=== PATIENT | female | born 1945 | race Two or more races ===

== ENCOUNTER 2020-02-18 08:06 | Outpatient (REF) | payer MEDICARE, OTHER, SELFPAY ==
[2020-02-18 08:53] LABS: Alanine Aminotransferase 15 U/L (0-31); Albumin Level 4.3 g/dL (3.5-5.0); Alkaline Phosphatase 90 U/L (39-117); Aspartate Amino Transferase 21 U/L (5-31); Bilirubin Direct 0.3 mg/dL (0.0-0.5); Bilirubin Total 0.8 mg/dL (0.0-1.0); Cholesterol 134 mg/dL; HDL Cholesterol 63 mg/dL; LDL Cholesterol Calculated 61 mg/dl; Triglycerides 52 mg/dL
== END 2020-02-18 08:07 | disposition home or self-care (01) ==
LOC: HO.LAB 08:06
PROVIDERS: PCP Internal Medicine; Visit Provider Internal Medicine
DX: E78.00 Pure hypercholesterolemia, unspecified (principal)
CPT/HCPCS: 80061; 80076

== ENCOUNTER 2020-02-29 13:58 | Outpatient (REF) | payer MEDICARE, SELFPAY | END 2020-02-29 13:59 | disposition home or self-care (01) | LOC: HO.LAB 13:58 | PROVIDERS: Visit Provider Internal Medicine | DX: Z20.828 Contact with and (suspected) exposure to other viral communicable diseases (principal) | CPT/HCPCS: 87635 ==

== ENCOUNTER 2020-03-14 11:37 | Outpatient (REF) | payer MEDICARE, SELFPAY ==
--- NOTE | 2020-03-14 11:42 | XR_ITS ---
EXAMINATION: XR CHEST CLINICAL INFORMATION: Cough. COMPARISON: None TECHNIQUE: 2 views of the chest were obtained. FINDINGS: The lungs are expanded with increased markings in both lungs suspicious for pneumonitis or interstitial edema the findings are greater on the right side. The heart size and pulmonary vascularity is normal. There is mild spondylosis dorsal spine. No lytic process.. XR/XR chest 2V IMPRESSION: Diffuse increase interstitial markings in both lungs suspicious for pneumonitis or interstitial edema.
== END 2020-03-14 11:38 | disposition home or self-care (01) ==
LOC: HO.XRAY 11:37
PROVIDERS: PCP Internal Medicine; Visit Provider Internal Medicine
DX: R05 Cough (principal)
CPT/HCPCS: 71046

== ENCOUNTER 2020-03-27 08:06 | Outpatient (REF) | payer MEDICARE, SELFPAY ==
[2020-03-27 08:30] LABS: MANUAL DIFF FLAG NO
[2020-03-27 08:34] LABS: Basophils Percent Auto 0.4 % (0-2); Eosinophils Absolute Auto 0.1 X10*3/uL (0.0-0.4); Eosinophils Percent Auto 1.8 % (0-4); Hematocrit 37.1 % (37-47); Hemoglobin 12.2 g/dl (12.0-16.0); Imm Gran Abs Auto 0.01 X10*3/uL (0.00-0.03); Imm Gran Pct Auto 0.2 % (0.0-0.4); Lymphocytes Absolute Auto 1.8 X10*3/uL (1.2-4.9); Lymphocytes Percent Auto 39.5 % (20-40); Mean Corpuscular HGB Conc 32.9 g/dl (31.0-35.0); Mean Corpuscular Hemoglobin 29.8 pg (27.0-33.0); Mean Corpuscular Volume 90.7 fL (80-98); Mean Platelet Volume 10.9 fL (9.4-12.3); Monocytes Absolute Auto 0.4 X10*3/uL (0.1-1.2); Neutrophils Absolute Auto 2.3 X10*3/uL (2.0-8.3); Neutrophils Percent Auto 50.1 % (45-73); Platelet Count 172 X10*3/uL (160-400); Red Blood Count 4.09 X10*6/uL (4.20-5.50); Red Cell Distribution Width 12.9 % (11.0-16.0); White Blood Count 4.5 X10*3/uL (4.8-10.8)
[2020-03-27 08:58] LABS: Alanine Aminotransferase 20 U/L (0-31); Albumin Level 4.1 g/dL (3.5-5.0); Alkaline Phosphatase 91 U/L (39-117); Anion Gap 11 (12-20); Aspartate Amino Transferase 23 U/L (5-31); Bilirubin Total 0.4 mg/dL (0.0-1.0); Blood Urea Nitrogen 17 mg/dL (9-16); Calcium 9.3 mg/dL (8.4-10.2); Carbon Dioxide 31 mmol/L (22-29); Chloride 104 mmol/L (96-108); Estimated Glomerular Filt Rate > 60; Glucose Random 111 mg/dL (60-115); Potassium 4.7 mmol/l (3.3-5.1); Sodium 141 mmol/L (135-145); Total Protein 7.3 g/dL (6.5-8.0)
[2020-03-27 09:01] LABS: B Type Natriuretic Peptide 34 pg/mL (<100)
== END 2020-03-27 08:07 | disposition home or self-care (01) ==
LOC: HO.LAB 08:06
PROVIDERS: PCP Internal Medicine; Visit Provider Internal Medicine
DX: I50.9 Heart failure, unspecified (principal)
CPT/HCPCS: 36415; 80053; 83880; 85025

== ENCOUNTER 2020-04-17 12:53 | Outpatient (REF) | payer MEDICARE, SELFPAY ==
--- NOTE | 2020-04-17 | MM_ITS ---
EXAMINATION: BONE DENSITOMETRY CLINICAL INDICATION: Other specified disorders of bone density and structure. COMPARISON: Previous BD dated 06/25/2016 and baseline BD dated 05/23/2012. TECHNIQUE: Using a [employer] DXA System (software version: 13.1) manufactured by [employer], dual-energy x-ray absorptiometry was performed of the lumbar spine and left hip. The images are of good technical quality. Summary results are attached. FINDINGS: AP SPINE L1-L4: Current: BMD 1.192 g/cm2, Z-score 1.6, T-score 0.1, normal, 9.3% increase from previous, 0.1% increase from baseline (<5% change is not significant). Prior: BMD 1.091 g/cm2. Baseline: BMD 1.191 g/cm2. LEFT FEMUR, NECK: Current: BMD 0.977 g/cm2, Z-score 1.2, T-score -0.4, normal. Prior: BMD 0.976 g/cm2. Baseline: BMD 1.008 g/cm2. LEFT FEMUR, TOTAL: Current: BMD 1.064 g/cm2, Z-score 1.9, T-score 0.5, normal, 3.4% increase from previous, 0.1% increase from baseline (<5% change is not significant). Prior: BMD 1.029 g/cm2. Baseline: BMD 1.063 g/cm2. IDENTIFIED RISK FACTORS: Early menopause, secondary osteoporosis. HISTORY OF FRACTURE: None listed. MEDICATIONS: None listed. MM/XR DEXA axial skeleton IMPRESSION: 1. DIAGNOSIS: Normal bone density based on the lowest T-score value of -0.4 in the femoral neck applying World Health Organization criteria. 2. 10-YEAR FRACTURE RISK PREDICTION, FRAX: Major osteoporotic fracture (clinical spine, forearm, hip or shoulder) 4.6%. Hip fracture 0.4%. 3. Treatment Recommendations: NOF guidelines recommend consideration for treatment in postmenopausal women and men age 50 and older presenting with the following: -A hip or vertebral (clinical or morphometric) fracture. -T-score less than or equal to -2.5 at the femoral neck or spine after appropriate evaluation to exclude secondary causes. -Low bone mass at the hip or spine and a 10-year fracture probability by FRAX of greater than or equal to 3% for hip fracture or greater than or equal to 20% for major osteoporotic fracture based on the [place] adapted WHO algorithm. 4. Other Recommendations: All treatment decisions require clinical judgment and consideration of individual patient factors, including patient preferences, comorbidities, previous drug use, risk factors not captured in the FRAX model (e.g. frailty, falls, vitamin D deficiency, increased bone turnover, interval significant decline in bone density) and possible under or overestimation of fracture risk by FRAX. FUTURE SCAN RECOMMENDATION: People with diagnosed cases of osteoporosis or at high risk for fracture should have regular bone mineral density tests. For patients eligible for Medicare, routine testing is allowed once every 2 years. The testing frequency can be increased to one year for patients who have rapidly progressing disease, those who are receiving or discontinuing medical therapy to restore bone mass, or have additional risk factors.
--- NOTE | 2020-04-17 | MM_ITS ---
EXAMINATION: MM SCREENING DIGITAL BREAST TOMOSYNTHESIS, RIGHT CLINICAL INFORMATION: Screening. Asymptomatic. Status post left mastectomy. COMPARISON: Mammography: April 16, 2019 and studies dating back to May 19, 2011 TECHNIQUE: Digital breast tomosynthesis is performed in both the craniocaudal and mediolateral oblique views along with computer-aided detection (CAD). Synthesized 2D images are generated from the tomosynthesis. FINDINGS: There are scattered areas of fibroglandular density (ACR BI-RADS breast composition Category b). There are no significant masses, abnormal calcifications, or other abnormalities. MM/MM tomosynthesis screening RT IMPRESSION: There are no significant changes from prior study. Status post left mastectomy. ASSESSMENT: BI-RADS 1: Negative RECOMMENDATION: Routine annual mammography screening. This patient's information was entered into a reminder system with a target due date for their next mammogram.
== END 2020-04-17 12:54 | disposition home or self-care (01) ==
LOC: HO.MAMMO 12:53
PROVIDERS: PCP Internal Medicine; Visit Provider Internal Medicine Medical Oncology
DX: M85.89 Other specified disorders of bone density and structure, multiple sites (principal); Z12.31 Encounter for screening mammogram for malignant neoplasm of breast
CPT/HCPCS: 77067; 77080

== ENCOUNTER → 2020-04-25 10:54 | Outpatient (REF) | payer MEDICARE, SELFPAY ==
--- NOTE | 2020-04-25 11:16 | CA_ITS ---
Transthoracic Echocardiogram Patient (Last, First, Middle): Elza Ryan E Gender: Female Date of : 1945 Age: 74 Procedure Date: 04/25/2020 Procedure Type: Transthoracic Echocardiogram Location: OP Height: 165.1 cm Weight: 75.3 kg BSA: 1.83 m2 Heart Rate: bpm BP: 130 / 80 mmHg Background Investigator: ANA Referring MD: Kathrin Lopez MD Symptoms: I50.9 - Heart failure, unspecified Study Quality: Technically Difficult Conclusions: - Normal left ventricular size, thickness, systolic function, and wall motion. The visually estimated ejection fraction is between 55-60%. - E/E prime ratio is >15, consistent with elevated filling pressures. - Normal right ventricular cavity size and systolic function. - There is mild dilatation of the ascending aorta. Findings Procedure Information Contrast agent, definity, is being given per protocol without apparent complications. Left Ventricle Normal left ventricular size, thickness, systolic function, and wall motion. The visually estimated ejection fraction is between 55-60%. Abnormal diastolic function is noted. Spectral Doppler is indicative of a pseudonormal filling pattern. E/E prime ratio is >15, consistent with elevated filling pressures. Right Ventricle Normal right ventricular cavity size and systolic function. Atria Both atria are normal in size. Aortic Valve There is a normal trileaflet aortic valve. There is mild calcification of the aortic valve. There is no aortic valve stenosis. There is no aortic valve regurgitation. Mitral Valve Normal mitral valve structure and function. There is no mitral valve regurgitation. There is no mitral valve stenosis. Pulmonic Valve Normal pulmonic valve structure and function. There is trace pulmonic valve regurgitation. Tricuspid Valve Normal tricuspid valve structure and function. There is trace tricuspid valve regurgitation. Normal right atrial pressure. There is no evidence of pulmonary hypertension. Great Vessels There is mild dilatation of the ascending aorta. The visualized portions of the pulmonary artery and branches are normal. Venous The inferior vena cava is normal in size and collapses greater than 50% with inspiration. Pericardium/Pleural There is no evidence of pericardial effusion. Prior Study Comparison Changes noted compared to prior study dated: 05/20/2016. Elevated filling pressures. Mild dilation of ascending aorta. Measurements 2D Linear Measurements IVSd: 0.85 0.6-0.9/0.6-1.0 cm LVIDd: 4.84 3.9-5.3/4.2-5.9 cm LVIDd Index: 2.64 2.4-3.2/2.2-3.1 cm/m2 LVIDs: 2.97 2.0-3.6 cm LVPWd: 0.83 0.7-1.1 cm Ao Root: 2.90 2.1-3.5 cm LA Diam: 3.10 2.7-3.8/3.0-4.0 cm LAIDs Index: 1.69 1.5-2.3 cm/m2 LV Mass: 169.28 67-162/88-224 g LV Mass Index: 92.50 43-95/49-115 g/m2 LVOT Diam: 1.90 3.0+(-)1.3 cm Mitral Valve MV Pk E: 0.79 MV PK A: 0.68 MV Decel Time: 354.00 E/A: 1.20 E'Lateral: 3.70 E'Medial: 4.57 E/E' Med: 17.30 E/E' Lat: 21.40 PHT: 104.00 MVA PHT: 2.12 Decel Ada: 2.24 Aortic Valve AoV Pk Adonay: 1.53 AoV Mn Adonay: 1.00 AoV VTI: 0.32 AoV Pk Grad: 9.00 Aov Mn Grad: 5.00 CALEB Cont.VTI: 2.47 LVOT LVOT Pk Adonay: 1.57 LVOT Mn Adonay: 0.97 LVOT VTI: 0.28 LVOT Pk Grad: 10.00 LVOT Mn Grad: 5.00 LVOT Diam: 1.90 LVOT Area: 2.84 Diastolic Function MV Pk E: 0.79 MV Pk A: 0.68 E/A: 1.20 E'Medial: 4.57 E/E' Med: 17.30 E' Laterial: 3.70 E/E' Lat: 21.40 Tricuspid Valve TR Pk Adonay: 2.82 TR Pk Grad: 32.00 RA Press: 3.00 RVSP: 35.00 Great Vessels Aorta Ao Root-2D: 2.90 2.0-3.7 cm Ao Asc: 3.60 2.1-3.4 cm Ao Arch: 3.20 Updated in Other Vendor System with Status of Final rTisten Arana MD electronically signed on 04/27/2020 1:30:41 PM with status of Final
== END ==
LOC: HO.CARD 10:54
PROVIDERS: PCP Internal Medicine; Visit Provider Internal Medicine
DX: I50.9 Heart failure, unspecified (principal)
CPT/HCPCS: 93306; Q9957

== ENCOUNTER 2021-04-06 09:35 | Outpatient (REF) | payer MEDICARE, SELFPAY ==
[2021-04-06 10:33] LABS: Cholesterol 146 mg/dL; HDL Cholesterol 58 mg/dL; LDL Cholesterol Calculated 76 mg/dl; Triglycerides 62 mg/dL
[2021-04-06 10:41] LABS: B Type Natriuretic Peptide 123 pg/mL (<100)
[2021-04-06 10:56] LABS: Ferritin 42 ng/mL (10-250); Free T4 (Free Thyroxine) 0.85 ng/dL (0.71-1.85); Thyroid Stimulating Hormone 1.73 uIU/mL (0.32-4.0); Vitamin D 25-OH Total 20.7 ng/mL (>30)
[2021-04-06 11:05] LABS: Folate 14.4 ng/mL (> or = 4.0); Vitamin B12 307 pg/mL (200-900)
[2021-04-06 12:30] LABS: Creatinine Urine 209.97 mg/dL; Microalbum/Creatinine Ratio Ur 20.4 ug/mg cr
== END 2021-04-06 09:36 | disposition home or self-care (01) ==
LOC: HO.LAB 09:35
PROVIDERS: PCP Internal Medicine; Visit Provider Internal Medicine
DX: E11.65 Type 2 diabetes mellitus with hyperglycemia (principal); E78.00 Pure hypercholesterolemia, unspecified
CPT/HCPCS: 36415; 80061; 82043; 82306; 82607; 82728; 82746; 83880; 84439; 84443

== ENCOUNTER 2021-04-20 09:54 | Outpatient (REF) | payer MEDICARE, SELFPAY ==
--- NOTE | ~2021-04-20 | MM_ITS ---
EXAMINATION: MM SCREENING DIGITAL BREAST TOMOSYNTHESIS, RIGHT CLINICAL INFORMATION: Left mastectomy, 1998. Due for yearly. COMPARISON: Mammography: 04/17/2020, 04/16/2019, 03/27/2018 TECHNIQUE: Digital breast tomosynthesis is performed in both the craniocaudal and mediolateral oblique views along with computer-aided detection (CAD). Synthesized 2D images are generated from the tomosynthesis. Additional CC view is provided. FINDINGS: There are scattered areas of fibroglandular density (ACR BI-RADS breast composition Category b). There are no significant masses, abnormal calcifications, or other abnormalities. No developing density. Parenchymal pattern is similar to prior studies. The axilla and skin contours are unremarkable. MM/MM tomosynthesis screening RT IMPRESSION: No mammographic evidence of malignancy. ASSESSMENT: BI-RADS 1: Negative RECOMMENDATION: Routine annual mammography screening. This patient's information was entered into a reminder system with a target due date for their next mammogram.
== END 2021-04-20 09:55 | disposition home or self-care (01) ==
LOC: HO.MAMMO 09:54
PROVIDERS: PCP Internal Medicine; Visit Provider Internal Medicine Medical Oncology
DX: Z12.31 Encounter for screening mammogram for malignant neoplasm of breast (principal)
CPT/HCPCS: 77063; 77067

== ENCOUNTER 2021-06-08 08:14 | Outpatient (REF) | payer MEDICARE, SELFPAY ==
[2021-06-08 08:39] LABS: MANUAL DIFF FLAG NO
[2021-06-08 08:51] LABS: Basophils Percent Auto 0.5 % (0-2); Eosinophils Absolute Auto 0.1 X10*3/uL (0.0-0.4); Eosinophils Percent Auto 1.1 % (0-4); Hematocrit 40.1 % (37.0-47.0); Hemoglobin 13.6 g/dl (12.0-16.0); Imm Gran Abs Auto 0.01 X10*3/uL (0.00-0.03); Imm Gran Pct Auto 0.2 % (0.0-0.4); Lymphocytes Absolute Auto 1.5 X10*3/uL (1.2-4.9); Lymphocytes Percent Auto 33.3 % (20-40); Mean Corpuscular HGB Conc 33.9 g/dl (31.0-35.0); Mean Corpuscular Hemoglobin 30.7 pg (27.0-33.0); Mean Corpuscular Volume 90.5 fL (80.0-98.0); Mean Platelet Volume 10.6 fL (9.4-12.3); Monocytes Absolute Auto 0.3 X10*3/uL (0.1-1.2); Monocytes Percent Auto 7.7 % (2-11); Neutrophils Absolute Auto 2.5 x10*3/uL (2.0-8.3); Neutrophils Percent Auto 57.2 % (45-73); Platelet Count 198 X10*3/uL (160-400); Red Blood Count 4.43 X10*6/uL (4.20-5.50); Red Cell Distribution Width 12.7 % (11.0-16.0); White Blood Count 4.4 X10*3/uL (4.8-10.8)
[2021-06-08 08:59] LABS: Estimated Average Glucose 146 mg/dL; Hemoglobin A1c % 6.7 %
[2021-06-08 09:10] LABS: Alanine Aminotransferase 15 U/L (0-31); Albumin Level 4.4 g/dL (3.5-5.0); Alkaline Phosphatase 97 U/L (39-117); Anion Gap 10 (12-20); Aspartate Amino Transferase 20 U/L (5-31); Bilirubin Total 0.6 mg/dL (0.0-1.0); Blood Urea Nitrogen 20 mg/dL (9-16); Calcium 9.9 mg/dL (8.4-10.2); Carbon Dioxide 31 mmol/L (22-29); Chloride 106 mmol/L (96-108); Estimated Glomerular Filt Rate > 60; Glucose Random 128 mg/dL (60-115); Potassium 4.6 mmol/L (3.3-5.1); Sodium 142 mmol/L (135-145); Total Protein 7.5 g/dL (6.5-8.0)
[2021-06-08 09:31] LABS: Thyroid Stimulating Hormone 1.28 uIU/mL (0.32-4.0)
[2021-06-08 09:59] LABS: Folate 13.4 ng/mL (> or = 4.0); Vitamin B12 309 pg/mL (200-900)
== END 2021-06-08 08:15 | disposition home or self-care (01) ==
LOC: HO.LAB 08:14
PROVIDERS: PCP Internal Medicine; Visit Provider Internal Medicine
DX: E11.65 Type 2 diabetes mellitus with hyperglycemia (principal)
CPT/HCPCS: 36415; 80053; 82607; 82746; 83036; 84443; 85025

== ENCOUNTER 2021-11-28 15:26 | Emergency (ER) | payer MEDICARE, SELFPAY ==
--- NOTE | ~2021-11-28 | CT_ITS ---
EXAMINATION: CT HEAD WITHOUT CONTRAST CLINICAL INFORMATION: Dizziness COMPARISON: Baseline 12/27/2013 TECHNIQUE: Contiguous axial imaging was performed from the skull base to vertex without intravenous administration of contrast. This CT examination was performed using dose optimization techniques as appropriate, variously including the following: *Automated exposure control *Adjustment of mA and/or kV according to patient size (this includes techniques or standardized protocols for targeted exams where dose is matched to indication/reason for exam; i.e. extremities or head) *Use of iterative reconstruction technique DLP: 644 mGy-cm FINDINGS: There is no evidence of acute intracranial hemorrhage or territorial infarction. No abnormal mass effect or midline shift is seen. Hester to white matter differentiation is well preserved. No extra-axial fluid collections are identified. The ventricles are normal in size. There is no abnormal attenuation within the brain parenchyma. The osseous structures and soft tissues are normal. The mastoid air cells and visualized portions of the paranasal sinuses are well aerated. CT/CT head/brain wo con IMPRESSION: No acute intracranial pathology.
--- NOTE | ~2021-11-28 | CT_ITS ---
EXAMINATION: CT ANGIOGRAM OF THE CHEST WITH AND WITHOUT CONTRAST (CT PULMONARY ANGIOGRAM FOR PE) CLINICAL INFORMATION: Reason for Exam hypotensive, Dizzy, elevated d-dimer COMPARISON: CT PE study 06/11/2018 TECHNIQUE: Prior to contrast administration, noncontrast localization images were obtained. Subsequently, multidetector volumetric imaging was performed from the thoracic inlet to below the diaphragms following the administration of 57 mL Omnipaque 350 intravenous contrast. No contrast reaction reported Sagittal, coronal, and MIP oblique sagittal reformatted images were obtained on the CT workstation, uploaded to PACS, and reviewed. This CT examination was performed using dose optimization techniques as appropriate, variously including the following: *Automated exposure control *Adjustment of mA and/or kV according to patient size (this includes techniques or standardized protocols for targeted exams where dose is matched to indication/reason for exam; i.e. extremities or head) *Use of iterative reconstruction technique Total exam dose-length product 298 mGy-cm FINDINGS: QUALITY OF STUDY/CONTRAST BOLUS: Satisfactory. PULMONARY ARTERIES: No central or segmental pulmonary emboli. THORACIC AORTA: No aneurysm or dissection. LUNG: No focal consolidation, worrisome nodules or masses. Calcified granuloma present in the right lower lobe. PLEURA: No pleural effusion or pneumothorax. MEDIASTINUM: Normal heart size. No pericardial effusion. No hilar or mediastinal lymphadenopathy. No evidence of septal bowing or right heart strain. CHEST WALL/AXILLA: No axillary or internal mammary lymphadenopathy. A left breast prosthesis is present. OSSEOUS STRUCTURES: No acute or suspicious osseous abnormality. UPPER ABDOMEN: Status post cholecystectomy No reflux of contrast into the hepatic veins to suggest elevated right heart pressures. CT/CT angio chest PE protocol IMPRESSION: No evidence of pulmonary VTE: negative
[2021-11-28 15:29] VITALS: BP 100/50; PULSE 58; RESP 22; TEMP 37.1; O2SAT 95; BMI 23.8
--- NOTE | 2021-11-28 15:41 | ECG_ITS ---
Test Reason : DIZZINESS Blood Pressure : / mmHG Vent. Rate : 054 BPM Atrial Rate : 054 BPM P-R Int : 156 ms QRS Dur : 088 ms QT Int : 376 ms P-R-T Axes : 061 017 171 degrees QTc Int : 356 ms Sinus bradycardia Cannot rule out Anterior infarct , age undetermined ST & T wave abnormality, consider lateral ischemia Abnormal ECG When compared with ECG of 11-JUN-2018 15:06, No significant change was found Referred By: Generic ED Physician Electronically Signed By:Tristen Arana
[2021-11-28 15:46] LABS: Hematocrit 39.3 % (37.0-47.0); Hemoglobin 13.6 g/dl (12.0-16.0); Mean Corpuscular HGB Conc 34.6 g/dl (31.0-35.0); Mean Corpuscular Hemoglobin 30.2 pg (27.0-33.0); Mean Corpuscular Volume 87.3 fL (80.0-98.0); Mean Platelet Volume 10.1 fL (9.4-12.3); Platelet Count 261 X10*3/uL (160-400); Red Cell Distribution Width 12.3 % (11.0-16.0); White Blood Count 9.2 X10*3/uL (4.8-10.8)
--- NOTE | 2021-11-28 15:57 | ED.GENADULT ---
HPI - General Adult General Chief complaint: Abdominal Pain Stated complaint: abdominal pain Time Seen by Provider: 11/28/21 15:43 Source: patient and family Mode of arrival: EMS History of Present Illness HPI narrative: 76-year-old female with history of diabetes, high blood pressure reports that she returned home and had and a sudden onset of dizziness and blurry vision that has now completely resolved and then she began having lower abdominal/pelvic pain that has also resolved. Patient denies any vomiting, shortness of breath, ear ringing, nausea/vomiting/diarrhea. Patient denies any recent fever, chills or urinary pain/burning/frequency. Related Data Home Medications Medication Instructions Recorded Confirmed aspirin 81 mg tablet,delayed 81 mg PO DAILY 02/25/20 11/26/21 release (Adult Aspirin Regimen) Previous Rx's Medication Instructions Recorded fluticasone propionate 50 2 spray intranasal DAILY #48 mL 05/19/20 mcg/actuation nasal spray,suspension metformin 1,000 mg tablet 1,000 mg PO BID #180 tabs 02/06/21 amlodipine 10 mg tablet 10 mg PO DAILY 90 days #90 tabs 08/12/21 rosuvastatin 20 mg tablet 20 mg PO DAILY #90 tabs 11/11/21 lisinopril 40 mg tablet 40 mg PO DAILY 90 days #90 tabs 11/17/21 cyclobenzaprine 5 mg tablet 5 mg PO TID PRN muscle spasm #30 11/18/21 tabs sennosides 8.6 mg-docusate sodium 2 tab-cap PO BEDTIME 30 days #60 11/26/21 50 mg tablet (Senna-S) tabs Allergies Allergy/AdvReac Type Severity Reaction Status Date / Time hydrochlorothiazide Allergy Unknown unknown Verified 11/26/21 10:38 Review of Systems Review of Systems: Pertinent positives and negatives as stated HPI 10 point review of systems is otherwise negative. FOR[facility]LY [facility] Past Medical History Source: nursing notes reviewed Medical History Coronary artery disease GERD (gastroesophageal reflux disease) History of breast cancer Hypercholesterolemia Hypertension Subdural hematoma Type 2 diabetes mellitus with hyperglycemia Surgical History History of cholecystectomy History of left mastectomy History of tonsillectomy Family History Family History Father Past heart attack Hypertension Mother Throat cancer Social History Social History Housing: Apartment Alcohol intake: former Patient Tobacco Use Status: Never used Tobacco e-Cigarette/Vaping Use: Never Used Second Hand Smoke Exposure: No Advance Directives: Yes Advance Directives Information Provided: No Advance Directives on File: No Current occupational status: retired Cognitive needs: No Hearing needs: No Vision needs: Yes Physical Exam ED Vital Signs: Vital Signs - 24 hr 11/28/21 15:29 11/28/21 16:09 Temperature 98.8 F Pulse Rate 58 Respiratory Rate 22 H Blood Pressure 100/50 L 102/45 L Pulse Oximetry 95 Oxygen Delivery Method Room Air BMI result Body Mass Index 23.8 VITAL SIGNS: Reviewed. GENERAL: Well developed, well nourished, in no acute distress. HEAD: Normocephalic/atraumatic EYES: PERRLA, EOMI EARS: Ext canals without abnormality NOSE: Nares patent bilateral OROPHARYNX: no oral lesions noted, posterior pharynx clear NECK: Supple, no adenopathy LUNGS: Normal breath sounds. No adventitious sounds or accessory muscle use. SpO2<95> CARDIOVASCULAR: Regular rate and rhythm without noted murmurs, no JVD or lower extremity edema. ABDOMEN: Soft, non-tender, non-distended with bowel sounds. SKIN: Inspection of the skin reveals no rashes NEUROLOGIC: Alert and oriented x 4. Strength and sensation to light touch were grossly intact x 4, no facial asymmetry, no pronator drift, cranial nerves 2-12 grossly intact, heel to farah is intact. Course Course Course Narrative: 76-year-old female with history and clinical presentation suggestive of possible dehydration in combination with possible hyper versus hypo glycemia. Will rule out cardiopulmonary etiologies and low clinical suspicion for neurologic etiology. Review of all investigations demonstrates serial troponins that are detectable, but again no prior to compare and patient has no complaints of chest pain. Blood pressure is noted to be soft comparison to priors. Signed out to Dr. Henriquez - f/u BMP - CT angio PE protocol Medical Decision Making Lab Data Result diagrams: 11/28/21 15:39 11/28/21 15:39 Labs: Lab Results 07/23/22 07/23/22 07/23/22 Range/Units 15:39 15:39 15:39 WBC 9.2 (4.8-10.8) X10*3/uL RBC 4.50 (4.20-5.50) X10*6/uL Hgb 13.6 (12.0-16.0) g/dl Hct 39.3 (37.0-47.0) % MCV 87.3 (80.0-98.0) fL MCH 30.2 (27.0-33.0) pg MCHC 34.6 (31.0-35.0) g/dl RDW 12.3 (11.0-16.0) % Plt Count 261 D (160-400) X10*3/uL MPV 10.1 (9.4-12.3) fL Absolute Nucleated RBC 0.000 (0.0-0.012) X10*3/uL Nucleated RBC % (auto) 0.0 (0.0-0.2) /100WBC D-Dimer High Sensitivty NG/ML Sodium 140 (135-145) mmol/L Potassium 4.2 (3.3-5.1) mmol/L Chloride 103 (96-108) mmol/L Carbon Dioxide 22 (22-29) mmol/L Anion Gap 19 (12-20) BUN 23 H (9-16) mg/dL Creatinine 1.58 H (0.5-1.4) mg/dL Estim Creat Clear Calc 29.2 Estimated GFR 32 POC Glucose (60-115) mg/dL Random Glucose 140 H (60-115) mg/dL Calcium 10.2 (8.4-10.2) mg/dL Troponin I High Sens 33.4 H (<3.5-17.0) ng/L B-Natriuretic Peptide 45 (<100) pg/mL Lipase 38 (8-78) U/L Urine Color Urine Appearance Urine pH (5.0-8.0) Ur Specific [place] (1.005-1.025) Urine Protein (NEG-TRACE) MG/DL Urine Glucose (UA) (NEG) MG/DL Urine Ketones (NEG) MG/DL Urine Blood (NEG) Urine Nitrite (NEG) Ur Leukocyte Esterase (NEG) Urine RBC (0) /HPF Urine WBC (0-4) /HPF Ur Squamous Epith Cells /LPF Urine Bacteria /LPF Hyaline Casts /LPF Urine Mucus /LPF 11/28/21 11/28/21 11/28/21 Range/Units 16:32 17:03 17:44 WBC (4.8-10.8) X10*3/uL RBC (4.20-5.50) X10*6/uL Hgb (12.0-16.0) g/dl Hct (37.0-47.0) % MCV (80.0-98.0) fL MCH (27.0-33.0) pg MCHC (31.0-35.0) g/dl RDW (11.0-16.0) % Plt Count (160-400) X10*3/uL MPV (9.4-12.3) fL Absolute Nucleated RBC (0.0-0.012) X10*3/uL Nucleated RBC % (auto) (0.0-0.2) /100WBC D-Dimer High Sensitivty NG/ML Sodium (135-145) mmol/L Potassium (3.3-5.1) mmol/L Chloride (96-108) mmol/L Carbon Dioxide (22-29) mmol/L Anion Gap (12-20) BUN (9-16) mg/dL Creatinine (0.5-1.4) mg/dL Estim Creat Clear Calc Estimated GFR POC Glucose 133 H (60-115) mg/dL Random Glucose (60-115) mg/dL Calcium (8.4-10.2) mg/dL Troponin I High Sens 30.0 H (<3.5-17.0) ng/L B-Natriuretic Peptide (<100) pg/mL Lipase (8-78) U/L Urine Color YELLOW Urine Appearance CLEAR Urine pH 5.5 (5.0-8.0) Ur Specific [place] 1.015 (1.005-1.025) Urine Protein TRACE (NEG-TRACE) MG/DL Urine Glucose (UA) NEG (NEG) MG/DL Urine Ketones NEG (NEG) MG/DL Urine Blood NEG (NEG) Urine Nitrite NEG (NEG) Ur Leukocyte Esterase 1+ H (NEG) Urine RBC 1-4 (0) /HPF Urine WBC 1-4 (0-4) /HPF Ur Squamous Epith Cells 2+ /LPF Urine Bacteria NONE /LPF Hyaline Casts 15-29 /LPF Urine Mucus 4+ /LPF // Range/Units 18:23 WBC (4.8-10.8) X10*3/uL RBC (4.20-5.50) X10*6/uL Hgb (12.0-16.0) g/dl Hct (37.0-47.0) % MCV (80.0-98.0) fL MCH (27.0-33.0) pg MCHC (31.0-35.0) g/dl RDW (11.0-16.0) % Plt Count (160-400) X10*3/uL MPV (9.4-12.3) fL Absolute Nucleated RBC (0.0-0.012) X10*3/uL Nucleated RBC % (auto) (0.0-0.2) /100WBC D-Dimer High Sensitivty 1663 NG/ML Sodium (135-145) mmol/L Potassium (3.3-5.1) mmol/L Chloride (96-108) mmol/L Carbon Dioxide (22-29) mmol/L Anion Gap (12-20) BUN (9-16) mg/dL Creatinine (0.5-1.4) mg/dL Estim Creat Clear Calc Estimated GFR POC Glucose (60-115) mg/dL Random Glucose (60-115) mg/dL Calcium (8.4-10.2) mg/dL Troponin I High Sens (<3.5-17.0) ng/L B-Natriuretic Peptide (<100) pg/mL Lipase (8-78) U/L Urine Color Urine Appearance Urine pH (5.0-8.0) Ur Specific [place] (1.005-1.025) Urine Protein (NEG-TRACE) MG/DL Urine Glucose (UA) (NEG) MG/DL Urine Ketones (NEG) MG/DL Urine Blood (NEG) Urine Nitrite (NEG) Ur Leukocyte Esterase (NEG) Urine RBC (0) /HPF Urine WBC (0-4) /HPF Ur Squamous Epith Cells /LPF Urine Bacteria /LPF Hyaline Casts /LPF Urine Mucus /LPF ECG Data Attestation: I personally reviewed and interpreted this ECG as follows: Prior ECG tracings: not available for review Interpretation: Sinus bradycardia, HR -54, no STEMI, PA/QRS/QTC is within normal limits. Discharge Plan Discharge Clinical Impression: Dizziness, Abdominal pain, D-dimer, elevated Patient Disposition: Still a Patient Prescriptions: No Action fluticasone propionate 50 mcg/actuation spray,suspension 2 spray intranasal DAILY Qty: 48 3RF rosuvastatin 20 mg tablet 20 mg PO DAILY Qty: 90 2RF lisinopril 40 mg tablet 40 mg PO DAILY 90 Days Qty: 90 3RF cyclobenzaprine 5 mg tablet 5 mg PO TID PRN (Reason: muscle spasm) Qty: 30 0RF metformin 1,000 mg tablet 1,000 mg PO BID Qty: 180 3RF aspirin [Adult Aspirin Regimen] 81 mg tablet,delayed release (DR/EC) 81 mg PO DAILY amlodipine 10 mg tablet 10 mg PO DAILY 90 Days Qty: 90 3RF sennosides-docusate sodium [Senna-S] 8.6-50 mg tablet 2 tab-cap PO BEDTIME 30 Days Qty: 60 3RF
[2021-11-28 16:09] VITALS: BP 102/45
[2021-11-28 16:09] LABS: Anion Gap 19 (12-20); Blood Urea Nitrogen 23 mg/dL (9-16); Calcium 10.2 mg/dL (8.4-10.2); Carbon Dioxide 22 mmol/L (22-29); Chloride 103 mmol/L (96-108); Creatinine Clr Calc Pharmacy 29.2; Estimated Glomerular Filt Rate 32; Glucose Random 140 mg/dL (60-115); Lipase 38 U/L (8-78); Potassium 4.2 mmol/L (3.3-5.1); Sodium 140 mmol/L (135-145)
[2021-11-28 16:32] LABS: B Type Natriuretic Peptide 45 pg/mL (<100); Troponin-I High Sensitivity 33.4 ng/L (<3.5-17.0)
[2021-11-28] MEDS: 0.9 % Sodium Chloride 1,000 ML 999 ML IV (16:35)
[2021-11-28 16:37] LABS: Glucose, Whole Blood 133 mg/dL (60-115)
[2021-11-28 17:54] LABS: Appearance Urine CLEAR; Color Urine YELLOW; Glucose Urine UA NEG (NEG); Leukocyte Esterase Urine 1+ (NEG); Nitrite Urine NEG (NEG); PH 5.5 (5.0-8.0); Specific Gravity - Urine 1.015 (1.005-1.025); UACC Culture Trigger YES; Urine Blood NEG (NEG); Urine Ketones NEG (NEG); Urine Protein TRACE MG/DL (NEG-TRACE)
[2021-11-28 18:35] LABS: Mucus Urine 4+ /LPF; Squamous Epithelial Cell Urine 2+ /LPF
[2021-11-28 18:40] LABS: D Dimer High Sensitivity 1663 NG/ML
[2021-11-28 19:11] LABS: COVID-19 Test Negative (Negative)
[2021-11-28 20:00] LABS: Anion Gap 15 (12-20); Blood Urea Nitrogen 24 mg/dL (9-16); Calcium 9.7 mg/dL (8.4-10.2); Carbon Dioxide 24 mmol/L (22-29); Chloride 107 mmol/L (96-108); Creatinine Clr Calc Pharmacy 38.2; Estimated Glomerular Filt Rate 43; Glucose Random 165 mg/dL (60-115); Sodium 142 mmol/L (135-145)
[2021-11-28] MEDS: iohexoL 350 MG/ML 100 ML INFUS..BTL IV (20:54)
== END 2021-11-28 23:15 | disposition home or self-care (01) ==
PROVIDERS: Student in an Organized Health Care Education/Training Program; Emergency Provider Emergency Medicine; PCP Internal Medicine
DX: R10.30 Lower abdominal pain, unspecified (principal); R42 Dizziness and giddiness; R79.1 Abnormal coagulation profile; R00.1 Bradycardia, unspecified; Z20.822 Contact with and (suspected) exposure to COVID-19; I11.0 Hypertensive heart disease with heart failure; I50.9 Heart failure, unspecified; E11.9 Type 2 diabetes mellitus without complications; E78.00 Pure hypercholesterolemia, unspecified; I25.10 Atherosclerotic heart disease of native coronary artery without angina pectoris; Z79.84 Long term (current) use of oral hypoglycemic drugs; Z79.899 Other long term (current) drug therapy; Z79.02 Long term (current) use of antithrombotics/antiplatelets; Z79.82 Long term (current) use of aspirin
CPT/HCPCS: 36415; 70450; 71275; 80048; 81001; 82947; 83690; 83880; 84484; 85027; 85379; 87086; 87635; 93005; 96360; 99284; Q9967

== ENCOUNTER 2021-12-01 08:51 | Outpatient (REF) | payer MEDICARE, SELFPAY ==
--- NOTE | ~2021-12-01 | XR_ITS ---
EXAMINATION: XR HIP, LEFT CLINICAL INFORMATION: Left hip pain. No injury COMPARISON: None TECHNIQUE: Two views of the left hip. AP pelvis one view FINDINGS: AP pelvis: There is normal symmetry of SI joints and bilateral hip joints. The pubic symphysis appears unremarkable. The soft tissues are normal. Left hip: There is no visible acute fracture, dislocation or subluxation seen. No bony erosive changes. The soft tissues are normal. XR/XR hip LT w [id number] IMPRESSION: Unremarkable AP pelvis and left hip exam.
== END 2021-12-01 08:52 | disposition home or self-care (01) ==
LOC: HO.XRAY 08:51
PROVIDERS: PCP Internal Medicine; Visit Provider Internal Medicine
DX: M25.552 Pain in left hip (principal); K59.00 Constipation, unspecified
CPT/HCPCS: 73502

== ENCOUNTER → 2022-01-14 11:00 | Outpatient (BNV) | payer MEDICARE, SELFPAY | PROVIDERS: PCP Internal Medicine; Visit Provider Internal Medicine Medical Oncology | DX: Z85.3 Personal history of malignant neoplasm of breast (principal) | CPT/HCPCS: 99213 ==

== ENCOUNTER 2022-03-18 08:09 | Outpatient (REF) | payer MEDICARE, SELFPAY ==
[2022-03-18 08:49] LABS: Basophils Percent Auto 0.4 % (0-2); Eosinophils Absolute Auto 0.1 X10*3/uL (0.0-0.4); Eosinophils Percent Auto 1.1 % (0-4); Hematocrit 39.9 % (37.0-47.0); Hemoglobin 13.5 g/dl (12.0-16.0); Imm Gran Abs Auto 0.02 X10*3/uL (0.00-0.03); Imm Gran Pct Auto 0.4 % (0.0-0.4); Lymphocytes Absolute Auto 1.3 X10*3/uL (1.2-4.9); Lymphocytes Percent Auto 24.1 % (20-40); MANUAL DIFF FLAG NO; Mean Corpuscular HGB Conc 33.8 g/dl (31.0-35.0); Mean Corpuscular Hemoglobin 29.8 pg (27.0-33.0); Mean Corpuscular Volume 88.1 fL (80.0-98.0); Mean Platelet Volume 10.3 fL (9.4-12.3); Monocytes Absolute Auto 0.3 X10*3/uL (0.1-1.2); Monocytes Percent Auto 5.5 % (2-11); Neutrophils Absolute Auto 3.6 x10*3/uL (2.0-8.3); Neutrophils Percent Auto 68.5 % (45-73); Platelet Count 242 X10*3/uL (160-400); Red Blood Count 4.53 X10*6/uL (4.20-5.50); Red Cell Distribution Width 12.8 % (11.0-16.0); White Blood Count 5.3 X10*3/uL (4.8-10.8)
[2022-03-18 09:12] LABS: Creatinine Urine 187.16 mg/dL; Microalbum/Creatinine Ratio Ur 10.6 ug/mg cr
[2022-03-18 09:33] LABS: Estimated Average Glucose 148 mg/dL; Hemoglobin A1c % 6.8 %
[2022-03-18 10:09] LABS: Folate 12.7 ng/mL (> or = 4.0); Vitamin B12 324 pg/mL (200-900)
[2022-03-18 10:16] LABS: Thyroid Stimulating Hormone 1.64 uIU/mL (0.32-4.0)
[2022-03-18 10:32] LABS: Alanine Aminotransferase 12 U/L (0-31); Albumin Level 4.3 g/dL (3.5-5.0); Alkaline Phosphatase 100 U/L (39-117); Anion Gap 15 (12-20); Aspartate Amino Transferase 19 U/L (5-31); Bilirubin Total 0.5 mg/dL (0.0-1.0); Blood Urea Nitrogen 14 mg/dL (9-16); Calcium 9.6 mg/dL (8.4-10.2); Carbon Dioxide 26 mmol/L (22-29); Chloride 106 mmol/L (96-108); Cholesterol 148 mg/dL; Estimated Glomerular Filt Rate > 60; Glucose Random 121 mg/dL (60-115); HDL Cholesterol 64 mg/dL; LDL Cholesterol Calculated 74 mg/dl; Potassium 4.6 mmol/L (3.3-5.1); Sodium 142 mmol/L (135-145); Total Protein 7.5 g/dL (6.5-8.0); Triglycerides 52 mg/dL; Vitamin D 25-OH Total 19.8 ng/mL (>30)
[2022-03-18 11:11] LABS: Free T4 (Free Thyroxine) 1.04 ng/dL (0.71-1.85)
== END 2022-03-18 08:10 | disposition home or self-care (01) ==
LOC: HO.LAB 08:09
PROVIDERS: PCP Internal Medicine; Visit Provider Internal Medicine
DX: E11.65 Type 2 diabetes mellitus with hyperglycemia (principal); E78.00 Pure hypercholesterolemia, unspecified; K21.9 Gastro-esophageal reflux disease without esophagitis
CPT/HCPCS: 36415; 80053; 80061; 82043; 82306; 82607; 82746; 83036; 84439; 84443; 85025

== ENCOUNTER 2022-04-29 09:51 | Outpatient (REF) | payer MEDICARE, SELFPAY ==
--- NOTE | ~2022-04-29 | MM_ITS ---
EXAMINATION: BONE DENSITOMETRY CLINICAL INDICATION: Osteopenia. COMPARISON: Previous BD dated 04/17/2020 and baseline BD dated 05/23/2012. TECHNIQUE: Using a [employer] DXA System (software version: 13.1) manufactured by [employer], dual-energy x-ray absorptiometry was performed of the lumbar spine and left hip. The images are of good technical quality. Summary results are attached. FINDINGS: AP SPINE L1-L4: Current: BMD 1.122 g/cm2, Z-score 0.8, T-score -0.5, normal, 5.9% decrease from previous, 5.8% decrease from baseline (<5% change is not significant). Prior: BMD 1.192 g/cm2. Baseline: BMD 1.191 g/cm2. LEFT FEMUR, NECK: Current: BMD 0.968 g/cm2, Z-score 1.1, T-score -0.5, normal. Prior: BMD 0.977 g/cm2. Baseline: BMD 1.008 g/cm2. LEFT FEMUR, TOTAL: Current: BMD 1.036 g/cm2, Z-score 1.6, T-score 0.2, normal, 2.6% decrease from previous, 2.5% decrease from baseline (<5% change is not significant). Prior: BMD 1.064 g/cm2. Baseline: BMD 1.063 g/cm2. IDENTIFIED RISK FACTORS: Menopause. HISTORY OF FRACTURE: None listed. MEDICATIONS: None listed. MM/XR DEXA axial skeleton IMPRESSION: 1. DIAGNOSIS: Normal bone density based on the lowest T-score value of -0.5 in the lumbar spine and femur neck applying World Health Organization criteria. 2. 10-YEAR FRACTURE RISK PREDICTION, FRAX: According to the guidelines, FRAX calculation should only be performed on patients in the osteopenia bone density category. Therefore, FRAX was not performed on this patient. 3. Treatment Recommendations: NOF guidelines recommend consideration for treatment in postmenopausal women and men age 50 and older presenting with the following: -A hip or vertebral (clinical or morphometric) fracture. -T-score less than or equal to -2.5 at the femoral neck or spine after appropriate evaluation to exclude secondary causes. -Low bone mass at the hip or spine and a 10-year fracture probability by FRAX of greater than or equal to 3% for hip fracture or greater than or equal to 20% for major osteoporotic fracture based on the [place] adapted WHO algorithm. 4. Other Recommendations: All treatment decisions require clinical judgment and consideration of individual patient factors, including patient preferences, comorbidities, previous drug use, risk factors not captured in the FRAX model (e.g. frailty, falls, vitamin D deficiency, increased bone turnover, interval significant decline in bone density) and possible under or overestimation of fracture risk by FRAX. FUTURE SCAN RECOMMENDATION: People with diagnosed cases of osteoporosis or at high risk for fracture should have regular bone mineral density tests. For patients eligible for Medicare, routine testing is allowed once every 2 years. The testing frequency can be increased to one year for patients who have rapidly progressing disease, those who are receiving or discontinuing medical therapy to restore bone mass, or have additional risk factors.
== END 2022-04-29 09:52 | disposition home or self-care (01) ==
LOC: HO.MAMMO 09:51
PROVIDERS: PCP Internal Medicine; Visit Provider Internal Medicine Medical Oncology
DX: Z12.31 Encounter for screening mammogram for malignant neoplasm of breast (principal); Z13.820 Encounter for screening for osteoporosis; Z78.0 Asymptomatic menopausal state; Z85.3 Personal history of malignant neoplasm of breast
CPT/HCPCS: 77063; 77067; 77080

== ENCOUNTER 2022-05-31 09:56 | Outpatient (REF) | payer MEDICARE, SELFPAY ==
--- NOTE | ~2022-05-31 | FL_ITS ---
EXAMINATION: FL UPPER GI AIR-CONTRAST STUDY AND BARIUM SWALLOW CLINICAL INFORMATION: Dysphagia COMPARISON: None TECHNIQUE: Routine upper GI air-contrast study was performed in upright and lying position. Thick barium and barium-coated chicken was administered in the upright lateral view. FINDINGS: On oral administration of thick barium, barium-coated chicken and effervescent granules in the upright lateral view, there is normal propagation bolus from the oral cavity through the pharynx, esophagus and into the stomach. No obstruction or narrowing seen. There is normal mastication of solid food. On oral administration of thick barium and effervescent granules in upright view, the esophagus is widely patent. No laryngeal penetration or aspiration seen. On placing patient supine and prone-lying, the course, caliber and peristalsis of the stomach, duodenal bulb and the sweep is normal. The mucosal pattern of the stomach and the duodenum is normal. There are surgical dre in the right upper quadrant, likely cholecystectomy. FL/FL upper GI w Ba Swallow IMPRESSION: Unremarkable barium swallow. Unremarkable upper GI air-contrast study.
== END 2022-05-31 09:57 | disposition home or self-care (01) ==
LOC: HO.XRAY 09:56
PROVIDERS: PCP Internal Medicine; Visit Provider Internal Medicine
DX: R13.10 Dysphagia, unspecified (principal)
CPT/HCPCS: 74240

== ENCOUNTER 2022-12-22 10:33 | Outpatient (AMB) | payer MEDICARE, SELFPAY ==
[2022-12-22 10:45] VITALS: BP 168/92; PULSE 82; O2SAT 98; BMI 27.4
--- NOTE | 2022-12-22 10:45 | A.OFFPC_ITS ---
Vital Signs 12/22/22 10:45 Height 5 ft 6 in Weight 170 lb BMI 27.4 BP 168/92 H Blood Pressure Location Lt brachial Pulse 82 Pulse Source Pulse Oximeter Pulse Oximetry (%) 98 Oxygen Delivery Method Room Air Intake Visit Reasons: R ear pain Allergies hydrochlorothiazide Allergy (Unknown, Verified 12/22/22 10:46) unknown Medication List - Last Reconciled 12/22/22 by Kathrin Lopez MD amlodipine 10 mg PO DAILY 90 days aspirin (Adult Aspirin Regimen) 81 mg PO DAILY baclofen 10 mg PO BID 7 days blood sugar diagnostic ([employer] Ultra Test strips) As directed check the blood sugar once a day blood-glucose meter As directed check the blood sugar once a day ONE TOUCH ULTRA 2 cholecalciferol (vitamin D3) (Vitamin D3) 125 mcg PO DAILY cyanocobalamin (vitamin B-12) 1,000 mcg PO DAILY fluticasone propionate 50 mcg/actuation 2 sprays intranasal DAILY hydralazine 10 mg PO BID 90 days lancets ([employer] UltraSoft 2 Lancet) As directed once a day lisinopril 40 mg PO DAILY 90 days metformin 1,000 mg PO BID ymqxuock-dginxovos-MT 3.5-10,000-1 mg/mL-unit/mL-% 4 drps otic (ear) right Q8H 10 days omeprazole 20 mg PO DAILY rosuvastatin 20 mg PO DAILY sennosides-docusate sodium 8.6-50 mg (Senna-S) 2 tab-caps (2 x 8.6-50 mg) PO BEDTIME 30 days tramadol 50 mg PO BID 5 days Tobacco use date assessed: 08/02/22 Fall risk assessment: No Falls in past year Last assessed Fall Risk: 12/22/22 Dental Screening Dental Screen Date: 12/22/22 Did you have a dental visit in the last 12 months?: Yes Did you have a dental problem in the last 6 months where you did not have access to dental care?: No Was dental information given to patient?: Patient has dentist [facility] Medical History Coronary artery disease GERD (gastroesophageal reflux disease) History of breast cancer Hypercholesterolemia Hypertension Subdural hematoma Type 2 diabetes mellitus with hyperglycemia Surgical History History of cholecystectomy History of left mastectomy History of tonsillectomy Family History Father Past heart attack Hypertension Mother Throat cancer Social History Household Members: Children Housing: House Are you a primary child day care teacher to a significant other at home: No Do you presently have visiting nurse or other home services: No Alcohol intake: former Patient Tobacco Use Status: Never used Tobacco e-Cigarette/Vaping Use: Never Used Second Hand Smoke Exposure: No service: No Current occupational status: retired Cognitive needs: No Hearing needs: No Vision needs: Yes Questionnaire PHQ-9 Over the last 2 weeks, how often have you been bothered by any of the following problems? 1. Little interest or pleasure in doing things: not at all 2. Feeling down, depressed, or hopeless: not at all 3. Trouble falling or staying asleep, or sleeping too much: not at all 4. Feeling tired or having little energy: not at all 5. Poor appetite or overeating: not at all 6. Feeling bad about yourself - or that you are a failure or have let yourself or your family down: not at all 7. Trouble concentrating on things, such as reading the newspaper or watching television: not at all 8. Moving or speaking so slowly that other people could have noticed. Or the opposite - being so fidgety or restless that you have been moving around a lot more than usual: not at all 9. Thoughts that you would be better off or of hurting yourself in some way: not at all Total score: 0 Depression Screening Interpretation: Negative Source: Developed by Drs. Danie Musa, Janessa Hassan, Miguel Ángel Xavier and colleagues, with an educational jocelyn from [employer]. Thrive Questionnaire Date Thrive assessed: 08/02/22 AUDIT C Alcohol Use Questionnaire (AUDIT-C) 1. How often do you have a drink containing alcohol?: Monthly or less 2. How many drinks containing alcohol do you have on a typical day when you are drinking?: 1 or 2 3. How often do you have six or more drinks on one occasion?: Never Total Score: 1 PAULA-7 AMB Questionnaire PAULA-7 Date PAULA - 7 assessed: 09/22/22 Source: Developed by Drs. Danie Musa, Janessa Hassan, Miguel Ángel Xavier and colleagues, with an educational jocelyn from [employer]. Physical exam (Primary Care) Vital Signs: Last Vital Signs Pulse 82 12/22/22 10:45 BP 168/92 H 12/22/22 10:45 Pulse Ox 98 12/22/22 10:45 Oxygen Delivery Method Room Air 12/22/22 10:45 BMI result Body Mass Index 27.4 Tobacco/Smoking Status: Tobacco use Status Tobacco use date assessed 08/02/22 12/22/22 10:55 Patient Tobacco Use Status Never used Tobacco 12/22/22 10:55 e-Cigarette/Vaping Use Never Used 12/22/22 10:55 PHQ-9: PHQ-9 Score PHQ-9: Total score 0 12/22/22 11:03 Depression Screening Interpretation: Negative Thrive Assessment: Date of Thrive Assessment Date Thrive assessed 08/02/22 12/22/22 10:55 Assessment and Plan Assessment & Plan Medications: New omeprazole 20 mg PO DAILY 30 caps 1RF R10.13 - Epigastric pain evauynco-bpkfzdvia-UO 3.5-10,000-1 mg/mL-unit/mL-% 4 drps otic (ear) right Q8H 10 days 10 mL 0RF H60.90 - Unspecified otitis externa, unspecified ear Coding Level of Care Code Est Pt Level 4 (69451) Diagnoses
--- NOTE | 2022-12-22 10:54 | MHC.PC.OV ---
Vital Signs 12/22/22 10:45 Height 5 ft 6 in Weight 170 lb BMI 27.4 BP 168/92 H Blood Pressure Location Lt brachial Pulse 82 Pulse Source Pulse Oximeter Pulse Oximetry (%) 98 Oxygen Delivery Method Room Air Intake Visit Reasons: R ear pain Allergies hydrochlorothiazide Allergy (Unknown, Verified 12/22/22 10:46) unknown Medication List - Last Reconciled 12/22/22 by Kathrin Lopez MD amlodipine 10 mg PO DAILY 90 days aspirin (Adult Aspirin Regimen) 81 mg PO DAILY baclofen 10 mg PO BID 7 days blood sugar diagnostic ([employer] Ultra Test strips) As directed check the blood sugar once a day blood-glucose meter As directed check the blood sugar once a day ONE TOUCH ULTRA 2 cholecalciferol (vitamin D3) (Vitamin D3) 125 mcg PO DAILY cyanocobalamin (vitamin B-12) 1,000 mcg PO DAILY fluticasone propionate 50 mcg/actuation 2 sprays intranasal DAILY hydralazine 10 mg PO BID 90 days lancets ([employer] UltraSoft 2 Lancet) As directed once a day lisinopril 40 mg PO DAILY 90 days metformin 1,000 mg PO BID qsghrzez-qvbhralvg-HZ 3.5-10,000-1 mg/mL-unit/mL-% 4 drps otic (ear) right Q8H 10 days omeprazole 20 mg PO DAILY rosuvastatin 20 mg PO DAILY sennosides-docusate sodium 8.6-50 mg (Senna-S) 2 tab-caps (2 x 8.6-50 mg) PO BEDTIME 30 days tramadol 50 mg PO BID 5 days Tobacco use date assessed: 08/02/22 Dental Screening Dental Screen Date: 12/22/22 Did you have a dental visit in the last 12 months?: No Did you have a dental problem in the last 6 months where you did not have access to dental care?: No Was dental information given to patient?: No HPI R ear pain HPI Details 77-year-old overweight female with controlled diabetes mellitus history of breast cancer hypertension hypercholesterolemia GERD coronary artery disease last seen in October 2022. Coming in for an acute problem. 2 days ago pain R ear, no congestion. no swim no discharge patient also complains of having epigastric pain no nausea no vomiting no diarrhea no fevers no coughs no colds REPLACED BY [facility] Medical History Coronary artery disease GERD (gastroesophageal reflux disease) History of breast cancer Hypercholesterolemia Hypertension Subdural hematoma Type 2 diabetes mellitus with hyperglycemia Surgical History History of cholecystectomy History of left mastectomy History of tonsillectomy Family History Father Past heart attack Hypertension Mother Throat cancer Social History Household Members: Children Housing: House Are you a primary ocular care aide to a significant other at home: No Do you presently have visiting nurse or other home services: No Alcohol intake: former Patient Tobacco Use Status: Never used Tobacco e-Cigarette/Vaping Use: Never Used Second Hand Smoke Exposure: No service: No Current occupational status: retired Cognitive needs: No Hearing needs: No Vision needs: Yes Questionnaire PHQ-9 Over the last 2 weeks, how often have you been bothered by any of the following problems? 1. Little interest or pleasure in doing things: not at all 2. Feeling down, depressed, or hopeless: not at all 3. Trouble falling or staying asleep, or sleeping too much: not at all 4. Feeling tired or having little energy: not at all 5. Poor appetite or overeating: not at all 6. Feeling bad about yourself - or that you are a failure or have let yourself or your family down: not at all 7. Trouble concentrating on things, such as reading the newspaper or watching television: not at all 8. Moving or speaking so slowly that other people could have noticed. Or the opposite - being so fidgety or restless that you have been moving around a lot more than usual: not at all 9. Thoughts that you would be better off or of hurting yourself in some way: not at all Total score: 0 Depression Screening Interpretation: Negative Source: Developed by Drs. Danie Musa, Janessa Hassan, Miguel Ángel Xavier and colleagues, with an educational jocelyn from [employer]. Thrive Questionnaire Date Thrive assessed: 08/02/22 AUDIT C Alcohol Use Questionnaire (AUDIT-C) 1. How often do you have a drink containing alcohol?: Monthly or less 2. How many drinks containing alcohol do you have on a typical day when you are drinking?: 1 or 2 3. How often do you have six or more drinks on one occasion?: Never Total Score: 1 PAULA-7 AMB Questionnaire PAULA-7 Date PAULA - 7 assessed: 09/22/22 Source: Developed by Drs. Danie Musa, Janessa Hassan, Miguel Ángel Xavier and colleagues, with an educational jocelyn from [employer]. Physical exam (Primary Care) Vital Signs: Last Vital Signs Pulse 82 12/22/22 10:45 BP 168/92 H 12/22/22 10:45 Pulse Ox 98 12/22/22 10:45 Oxygen Delivery Method Room Air 12/22/22 10:45 Care Plan Goal for BP management: Right tragal tenderness, epigastric tenderness with no rebound or guarding BMI result Body Mass Index 27.4 Tobacco/Smoking Status: Tobacco use Status Tobacco use date assessed 08/02/22 12/22/22 10:55 Patient Tobacco Use Status Never used Tobacco 12/22/22 10:55 e-Cigarette/Vaping Use Never Used 12/22/22 10:55 PHQ-9: PHQ-9 Score PHQ-9: Total score 0 12/22/22 10:55 Depression Screening Interpretation: Negative Thrive Assessment: Date of Thrive Assessment Date Thrive assessed 08/02/22 12/22/22 10:55 Const General: alert; No acute distress Eyes Conjunctivae: conjunctivae normal Resp Auscultation: clear to auscultation bilaterally Cardio Rate: regular rate Rhythm: regular rhythm GI Inspection: Yes normal to inspection Extrem General: Yes normal to inspection and No edema Assessment and Plan Assessment & Plan (1) Type 2 diabetes mellitus with hyperglycemia: Code(s): E11.65 - Type 2 diabetes mellitus with hyperglycemia Qualifiers: 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 Hemoglobin A1c goal of less than 7.0 patient is on metformin a 1000 mg twice a day (2) Otitis externa: Code(s): H60.90 - Unspecified otitis externa, unspecified ear Plan: Ear drops sent in (3) Epigastric pain: Code(s): R10.13 - Epigastric pain Plan: Avoid the foods that causes that usually spicy foods, tomato products, juices, coffee, soda and foods that your sensitive to. After eating do not lie down, allow 3-4 hours before in lie down. And keep the head of bed above 30 degrees to avoid the acid from going up. Medications: New omeprazole 20 mg PO DAILY 30 caps 1RF R10.13 - Epigastric pain uvywaevv-fzgxzjxwx-LY 3.5-10,000-1 mg/mL-unit/mL-% 4 drps otic (ear) right Q8H 10 mL 0RF 10 days H60.90 - Unspecified otitis externa, unspecified ear Coding Level of Care Code Est Pt Level 4 (66883) Diagnoses Type 2 diabetes mellitus with hyperglycemia E11.65 Diabetes mellitus fdc insulin use: without fdc use Otitis externa H60.90 Epigastric pain R10.13
== END 2022-12-22 11:08 | disposition home or self-care (01) ==
PROVIDERS: PCP Internal Medicine; Visit Provider Internal Medicine
DX: E11.65 Type 2 diabetes mellitus with hyperglycemia (principal); H60.91 Unspecified otitis externa, right ear; R10.13 Epigastric pain
CPT/HCPCS: 99214

== ENCOUNTER 2023-02-17 10:57 | Outpatient (AMB) | payer MEDICARE, SELFPAY ==
--- NOTE | 2023-02-17 11:18 | A.OFFPC_ITS ---
Vital Signs 02/17/23 11:19 Height 5 ft 6 in Weight 167 lb BMI 27.0 BP 132/76 Blood Pressure Location Lt brachial Position Sitting Pulse 75 Pulse Source Pulse Oximeter Pulse Oximetry (%) 98 Oxygen Delivery Method Room Air Intake Visit Reasons: HTN , CHolesterol , HTN Allergies hydrochlorothiazide Allergy (Unknown, Verified 02/17/23 11:19) unknown Tobacco use date assessed: 08/02/22 Fall risk assessment: No Falls in past year Last assessed Fall Risk: 02/17/23 Dental Screening Dental Screen Date: 02/17/23 Did you have a dental visit in the last 12 months?: No Did you have a dental problem in the last 6 months where you did not have access to dental care?: No Was dental information given to patient?: No HPI HTN , CHolesterol , HTN HPI Details 77-year-old female with controlled diabe po mellitus last seen in December 2022 coming in for follow-up. Patient's colonoscopy is due this year mammogram is due for April and bone density is up-to-date review of the notes in January patient follows up with Hematology Oncology for the history of breast cancer 1017colon test postponed due to sickness.. fall last month on stairs hit knee and ankle and since that time L leg swelling- patient at the last moment complains to me of falling 1 month ago on left knee and since that time has been having swelling of the left leg deny any pain on any of the joints right now but with this prompting for consultation [facility] Medical History Coronary artery disease GERD (gastroesophageal reflux disease) History of breast cancer Hypercholesterolemia Hypertension Subdural hematoma Type 2 diabetes mellitus with hyperglycemia Surgical History History of cholecystectomy History of left mastectomy History of tonsillectomy Family History Father Past heart attack Hypertension Mother Throat cancer Social History Household Members: Children Housing: House Are you a primary weekend caregiver to a significant other at home: No Do you presently have visiting nurse or other home services: No Alcohol intake: former Patient Tobacco Use Status: Never used Tobacco e-Cigarette/Vaping Use: Never Used Second Hand Smoke Exposure: No service: No Current occupational status: retired Cognitive needs: No Hearing needs: No Vision needs: Yes Questionnaire PHQ-9 Over the last 2 weeks, how often have you been bothered by any of the following problems? 1. Little interest or pleasure in doing things: not at all 2. Feeling down, depressed, or hopeless: not at all 3. Trouble falling or staying asleep, or sleeping too much: not at all 4. Feeling tired or having little energy: not at all 5. Poor appetite or overeating: not at all 6. Feeling bad about yourself - or that you are a failure or have let yourself or your family down: not at all 7. Trouble concentrating on things, such as reading the newspaper or watching television: not at all 8. Moving or speaking so slowly that other people could have noticed. Or the opposite - being so fidgety or restless that you have been moving around a lot more than usual: not at all 9. Thoughts that you would be better off or of hurting yourself in some way: not at all Total score: 0 Depression Screening Interpretation: Negative Depression Screening Done: Yes Source: Developed by Drs. Danie Musa, Miguel Ángel Frank and colleagues, with an educational jocelyn from [email or web address]. Thrive Questionnaire Date Thrive assessed: 08/02/22 AUDIT C Alcohol Use Questionnaire (AUDIT-C) 1. How often do you have a drink containing alcohol?: Monthly or less 2. How many drinks containing alcohol do you have on a typical day when you are drinking?: 1 or 2 3. How often do you have six or more drinks on one occasion?: Never Total Score: 1 PAULA-7 AMB Questionnaire PAULA-7 Date PAULA - 7 assessed: 09/22/22 Source: Developed by Drs. Danie Musa, Janessa Hassan, Miguel Ángel Xavier and colleagues, with an educational jocelyn from [email or web address]. Physical exam (Primary Care) Vital Signs: Last Vital Signs Pulse 75 02/17/23 11:19 BP 132/76 02/17/23 11:19 Pulse Ox 98 02/17/23 11:19 Oxygen Delivery Method Room Air 02/17/23 11:19 BMI result Body Mass Index 27.0 Tobacco/Smoking Status: Tobacco use Status Tobacco use date assessed 08/02/22 02/17/23 11:18 Patient Tobacco Use Status Never used Tobacco 02/17/23 11:18 e-Cigarette/Vaping Use Never Used 02/17/23 11:18 PHQ-9: PHQ-9 Score PHQ-9: Total score 0 02/17/23 11:32 Depression Screening Interpretation: Negative Thrive Assessment: Date of Thrive Assessment Date Thrive assessed 08/02/22 02/17/23 11:18 Const General: alert; No acute distress Eyes Conjunctivae: conjunctivae normal Resp Auscultation: clear to auscultation bilaterally Cardio Rate: regular rate Rhythm: regular rhythm GI Inspection: Yes normal to inspection Extrem Other: Noted left leg 2+ edema but the right 1 is norm General: Yes edema Results AMB Hemoglobin A1c AMB Hemoglobin A1c 6.7 % Last Edit by Nancy Marlow CMA on 02/17/23 11 :50 Assessment and Plan Assessment & Plan (1) Type 2 diabetes mellitus with hyperglycemia: Code(s): E11.65 - Type 2 diabetes mellitus with hyperglycemia Qualifiers: Diabetes mellitus salvage determiner insulin use: without salvage determiner use Qualified Code(s): E11.65 - Type 2 diabetes mellitus with hyperglycemia Plan: Decrease the amount of carbohydrate intake, pasta, bread, rice and potatoes are all sugar and that is aside from all the sweet stuff, remember that fruits are good but they are Sweet also. Hemoglobin A1c goal of less than 7.0 patient takes metformin a 1000 mg twice a day (2) History of breast cancer: Comment: 1999 with left mastectomy chemotherapy Dr. Thorpe Code(s): Z85.3 - Personal history of malignant neoplasm of breast Plan: Up-to-date with mammogram April 2022 (3) GERD (gastroesophageal reflux disease): Code(s): K21.9 - Gastro-esophageal reflux disease without esophagitis Qualifiers: Esophagitis presence: without esophagitis Qualified Code(s): K21.9 - Gastro-esophageal reflux disease without esophagitis Plan: Avoid the foods that causes that usually spicy foods, tomato products, juices, coffee, soda and foods that your sensitive to. After eating do not lie down, allow 3-4 hours before in lie down. And keep the head of bed above 30 degrees to avoid the acid from going up. (4) Hypertension: Code(s): I10 - Essential (primary) hypertension Qualifiers: Hypertension type: essential hypertension Qualified Code(s): I10 - Essential (primary) hypertension Plan: Continue with blood pressure medication. Decrease salt intake and exercise continue with lisinopril 40 mg once a day hydralazine 10 mg twice a day and amlodipine 10 mg once a day (5) Hypercholesterolemia: Code(s): E78.00 - Pure hypercholesterolemia, unspecified Plan: Avoid fried foods, chicken skin, eggs, butter margarine, pastries and meat. Be it pork or beef they have a lot of cholesterol continue with rosuvastatin 20 mg once a day LDL goal of less than 70 and triglyceride of less than 150 (6) Coronary artery disease: Code(s): I25.10 - Atherosclerotic heart disease of [place] coronary artery without angina pectoris Qualifiers: Associated angina: without angina Coronary Disease-Associated Artery/Lesion type: [place] artery [place] vs. transplanted heart: [place] heart Qualified Code(s): I25.10 - Atherosclerotic heart disease of [place] coronary artery without angina pectoris Plan: Control the cholesterol, weight, blood pressure, diabetes (7) CHF (congestive heart failure): Comment: Echocardiogram EF 55-60% normal LV Code(s): I50.9 - Heart failure, unspecified Qualifiers: Heart failure chronicity: acute Heart failure type: unspecified Qualified Code(s): I50.9 - Heart failure, unspecified Plan: Weigh daily continue with the blood pressure medication (8) Left leg swelling: Code(s): M79.89 - Other specified soft tissue disorders Plan: On having ultrasound stat to check for DVT. Orders: Orders AMB Hemoglobin A1c Today Z13.9 - Encounter for screening, unspecified Complete Blood Count Auto Diff 3 Months E11. - Type 2 diabetes mellitus with hyperglycemia Free T4 (Free Thyroxine) 3 Months E11. - Type 2 diabetes mellitus with hyperglycemia Vitamin B12 and Folate 3 Months . - Type 2 diabetes mellitus with hyperglycemia Creatinine Urine 3 Months . - Type 2 diabetes mellitus with hyperglycemia Comprehensive Met. Panel 3 Months . - Type 2 diabetes mellitus with hyperglycemia Lipid Panel 3 Months E11. - Type 2 diabetes mellitus with hyperglycemia, E78.00 - Pure hypercholesterolemia, unspecified Vitamin D 25-OH Total 3 Months - Type 2 diabetes mellitus with hyperglycemia Microalbumin, Random (w Creat) 3 Months E11.65 - Type 2 diabetes mellitus with hyperglycemia US venous duplex LE LT Today M79.89 - Other specified soft tissue disorders Referrals Ophthalmology Referral E11.65 - Type 2 diabetes mellitus with hyperglycemia Coding Level of Care Code Est Pt Level 4 (36972) Diagnoses Type 2 diabetes mellitus with hyperglycemia, without long-term current use of insulin E11.65 Diabetes mellitus salvage determiner insulin use: without salvage determiner use History of breast cancer Z85.3 Gastroesophageal reflux disease without esophagitis K21.9 Esophagitis presence: without esophagitis Essential hypertension I10 Hypertension type: essential hypertension Hypercholesterolemia E78.00 Coronary artery disease involving [place] coronary artery of [place] heart without angina pectoris I25.10 Associated angina: without angina Coronary Disease-Associated Artery/Lesion type: [place] artery [place] vs. transplanted heart: [place] heart Acute congestive heart failure, unspecified heart failure type I50.9 Heart failure chronicity: acute Heart failure type: unspecified Left leg swelling M79.89
[2023-02-17 11:19] VITALS: BP 132/76; PULSE 75; O2SAT 98; BMI 27.0
== END 2023-02-17 12:06 | disposition home or self-care (01) ==
PROVIDERS: PCP Internal Medicine; Visit Provider Internal Medicine
DX: E11.65 Type 2 diabetes mellitus with hyperglycemia (principal); I50.9 Heart failure, unspecified; Z85.3 Personal history of malignant neoplasm of breast; K21.9 Gastro-esophageal reflux disease without esophagitis; I10 Essential (primary) hypertension; E78.00 Pure hypercholesterolemia, unspecified; I25.10 Atherosclerotic heart disease of native coronary artery without angina pectoris; M79.89 Other specified soft tissue disorders
CPT/HCPCS: 83036; 99214

== ENCOUNTER 2023-02-17 12:27 | Outpatient (REF) | payer MEDICARE, SELFPAY ==
--- NOTE | ~2023-02-17 | US_ITS ---
EXAMINATION: US VENOUS ULTRASOUND WITH DOPPLER LOWER EXTREMITY, LEFT CLINICAL INFORMATION: Left lower extremity edema. COMPARISON: None available. TECHNIQUE: Ultrasound of the deep veins is performed from the hip to the calf with compression sonography and color and pulse Doppler assessment. Spectral analysis with color-flow imaging is performed. FINDINGS: There is normal venous compression and respiratory variation and augmented flow. The visualized common femoral vein, superficial femoral vein, profunda femoral vein, popliteal vein, and the trifurcation region shows no evidence of deep venous thrombosis. There is no significant popliteal fossa cyst. If the patient's symptoms persist, followup ultrasound in 5 days 7 days might be of value to exclude proximal propagation from a non-visualized calf vein. US/US venous duplex LE IMPRESSION: No DVT demonstrated in the left lower extremity.
== END 2023-02-17 12:28 | disposition home or self-care (01) ==
LOC: HO.US 12:27
PROVIDERS: PCP Internal Medicine; Visit Provider Internal Medicine
DX: R60.0 Localized edema (principal)
CPT/HCPCS: 93971

== ENCOUNTER 2023-05-23 08:56 | Day surgery (SDC) | payer MEDICARE, SELFPAY ==
--- NOTE | 2023-01-28 09:21 | HO.ANESPROP2 ---
HPI - Anesthesia Eval Consult details Narrative: 77yo F for Colonoscopy, Upper Endoscopy with Balloon Dilitation PMFSH Active Problems Active Problems: All Active Problems (Updated 01/17/23 @ 09:07 by Amanda Thorpe MD) Epigastric pain (Acute) Otitis externa (Acute) Strain of latissimus dorsi muscle (Acute) Muscle strain (Acute) Dysphagia (Acute) Dizziness (Acute) Hip pain, left (Acute) Constipation (Acute) Back pain (Acute) CHF (congestive heart failure) (Acute) Upper respiratory tract infection (Acute) Cough (Acute) Type 2 diabetes mellitus with hyperglycemia (Acute) History of breast cancer (Acute) GERD (gastroesophageal reflux disease) (Acute) Hypertension (Acute) Hypercholesterolemia (Acute) Coronary artery disease (Acute) Past Medical History Medical History Coronary artery disease GERD (gastroesophageal reflux disease) History of breast cancer Hypercholesterolemia Hypertension Subdural hematoma Type 2 diabetes mellitus with hyperglycemia Family History Family History Father Past heart attack Hypertension Mother Throat cancer Surgical History Surgical History History of cholecystectomy History of left mastectomy History of tonsillectomy Social History Social History Household Members: Children Housing: House Are you a primary career development specialist to a significant other at home: No Do you presently have visiting nurse or other home services: No Alcohol intake: former Patient Tobacco Use Status: Never used Tobacco e-Cigarette/Vaping Use: Never Used Second Hand Smoke Exposure: No Use of substances other than those prescribed or required for medical reasons: No Have you been hit, kicked, punched, or otherwise hurt by someone within the past year? If so, by whom?: No Do you have thoughts of harming others: None Do you have a plan to hurt others: No Plan Do you have the means to hurt others: No Recently lost weight without trying: No Eating poorly because of decreased appetite: No Patient : No service: No Current occupational status: retired Cognitive needs: No Hearing needs: No Vision needs: Yes Meds Allergies Allergy/AdvReac Type Severity Reaction Status Date / Time hydrochlorothiazide Allergy Unknown unknown Verified 01/17/23 08:50 Home Medications Medication Instructions Recorded Confirmed Last Taken Type aspirin 81 mg tablet,delayed 81 mg PO DAILY 02/25/20 01/17/23 Unknown History release (Adult Aspirin Regimen) Exam Exam Date and Time: January 28, 2023 09 Pertinent Lab Results Pertinent Lab Results: Laboratory Tests 01/17/23 08:44 WBC 5.9 Hgb 13.5 Hct 39.4 Plt Count 197 Sodium 141 Potassium 4.4 Chloride 107 Carbon Dioxide 27 BUN 16 Creatinine 0.76 Narrative Narrative: EKG 11/2021 Sinus bradycardia Cannot rule out Anterior infarct , age undetermined ST & T wave abnormality, consider lateral ischemia Abnormal ECG When compared with ECG of 11-JUN-2018 15:06, No significant change was found ECHO 2019 Conclusions: - Normal left ventricular size, thickness, systolic function, and wall motion. The visually estimated ejection fraction is between 55-60%. - E/E prime ratio is >15, consistent with elevated filling pressures. - Normal right ventricular cavity size and systolic function. - There is mild dilatation of the ascending aorta. Assessment and Plan Assessment Anesthesia Assessment: Chart Reviewed
[2023-05-19 11:12] VITALS: BMI 27.0
--- NOTE | 2023-05-20 08:49 | P.CONAN_ITS ---
HPI - Anesthesia Eval Consult details Narrative: 77yo F for?Colonoscopy, Upper Endoscopy with Balloon Dilitation PMFSH Active Problems Active Problems: All Active Problems (Updated 02/17/23 @ 12:03 by Kathrin Lopez MD) Left leg swelling (Acute) Epigastric pain (Acute) Otitis externa (Acute) Strain of latissimus dorsi muscle (Acute) Muscle strain (Acute) Dysphagia (Acute) Dizziness (Acute) Hip pain, left (Acute) Constipation (Acute) Back pain (Acute) CHF (congestive heart failure) (Acute) Upper respiratory tract infection (Acute) Cough (Acute) Type 2 diabetes mellitus with hyperglycemia (Acute) History of breast cancer (Acute) GERD (gastroesophageal reflux disease) (Acute) Hypertension (Acute) Hypercholesterolemia (Acute) Coronary artery disease (Acute) Past Medical History Medical History Coronary artery disease GERD (gastroesophageal reflux disease) History of breast cancer Hypercholesterolemia Hypertension Subdural hematoma Type 2 diabetes mellitus with hyperglycemia Family History Family History Father Past heart attack Hypertension Mother Throat cancer Surgical History Surgical History History of cholecystectomy History of left mastectomy History of tonsillectomy Social History Social History Household Members: Children Housing: House Are you a primary rn palliative care to a significant other at home: No Do you presently have visiting nurse or other home services: No Alcohol intake: former Patient Tobacco Use Status: Never used Tobacco e-Cigarette/Vaping Use: Never Used Second Hand Smoke Exposure: No service: No Current occupational status: retired Cognitive needs: No Hearing needs: No Vision needs: Yes Meds Allergies Allergy/AdvReac Type Severity Reaction Status Date / Time hydrochlorothiazide Allergy Unknown unknown Verified 02/17/23 11:19 amlodipine AdvReac Intermediate leg Unverified 02/17/23 17:57 swelling Home Medications Medication Instructions Recorded Confirmed Last Taken Type aspirin 81 mg tablet,delayed 81 mg PO DAILY 02/25/20 01/17/23 Unknown History release (Adult Aspirin Regimen) Exam Height,Weight and Vital Signs: Height 5 ft 6 in Weight 75.75 kg Assessment and Plan Assessment Anesthesia Assessment: Chart Reviewed
--- OUTSIDE RECORDS SUMMARY | 2023-05-23 08:59 | XMS_ITS | Patient Health Record ---
Author Name Unknown [facility] Address [address] [place] [address] Care Team Providers Care Rocket Motor Tester Name Role Phone John Codiemichael Primary Care Provider Didier Obregon Juana Unavailable [phone] ALLERGIES No Known Allergies REASON FOR REFERRAL No Information MEDICATIONS Medication SIG (Take, Route, Frequency, Duration) Notes Start Date End Date Status Lisinopril 40 MG 1 tablet Orally Once a day for 30 day(s) Active Linzess 145 MCG 1 capsule at least 3 0 minutes before the first meal of the day on an empty stomach Orally Once a day for 30 day(s) Active amLODIPine Besylate 5 MG 1 tablet Orally Once a day for 30 day(s) Active NexIUM 40 MG 1 capsule Orally Onc e a day for 30 day(s) Not-Taking metFORMIN HCl 500 MG 1 tablet with a erika l Orally Once a day for 30 day(s) Active Rosuvastatin Calcium 20 MG 1 tablet Orally Once a day for 30 day(s) Active IMMUNIZATIONS Vaccine Route Administration Date Status Comme nts COVID-19 Moderna Vaccine Unknown 03/06/2021 Administered 1st:06/24/2020 2nd:07/22/2021 Influenza Unknown 01/08/2019 Administered Influenza Unknown 01/07/2023 Administered SOCIAL HISTORY Tobacco Use: Social History Observation Description Date Details (start date - stop date) Never Smoker NA - NA Sex Assigned At : Social History Observation Description Sex Assigned At Unknown Tobacco Use/Smoking Question Answer Notes Are you a: nonsmoker Alcohol Screen Question Answer Notes Did you have a drink containing alcohol in the p ast year? No Points 0 Interpretation Negative Tobacco use other than smoking: Question Answer Notes Are you an other tobacco user? No PROBLEMS Problem Type ICD Code Onset Dates Problem Status W/U Status Risk SNOMED Code Notes Problem Other hammer toe(s) (acquired), right foot (M20.41) Active confirmed Acquired hamme r toe of right foot (6591218497548733 ) Problem Other hammer toe(s) (acquired), left foot (M20.42) Active confirmed Acquired hamme r toe of left foot (8036532365122262 ) Problem Type 2 diabetes mellitus with diabetic polyneuropathy (E11.42) Active confirmed Polyneuropathy due to type 2 diabetes mellitus (142353183) VITAL SIGNS Height 5ft 6in in 03/17/2023 Weight 170 lbs 03/17/2023 BMI 27.44 kg/m2 03/17/2023 PROCEDURES Procedure Date Ordered Date Performed Result Body Sit e 76055-PXQKPNM NAIL, 6 OR MORE 08/02/2022 N/A 56912-Vsvlnral Plate 08/02/2022 N/A 33495-JXDH SKIN LESIONS, OVER 4 08/02/2022 N/A 05398-ZEPJQRA NAIL, 6 OR MORE 12/06/2022 N/A 72800-URFX SKIN LESIONS, OVER 4 12/06/2022 N/A 55116-DNTSEZQ NAIL, 6 OR MORE 03/17/2023 N/A 99708-WFJH SKIN LESIONS, OVER 4 03/17/2023 N/A Encounters Encounter Location Date Provider Diagnosis [address] [address] 08/02/2022 Juana Black Type 2 diabetes mellitus with diabetic polyneuropathy E11.42 ; Tinea unguium B35.1 and Ingrowing nail L60.[address] [phone] 12/06/2022 Juana Black Type 2 diabetes mellitus with diabetic polyneuropathy E11.42 and Tinea unguium B35.[address] [address] 03/17/2023 Juana Black Type 2 diabetes mellitus with diabetic polyneuropathy E11.42 and Tinea unguium B35.[address] [address] 03/21/2023 Juana Black ASSESSMENTS Encounter Date Diagnosis Assessment Notes Treatment Notes Treatment Clinical Notes 08/02/2022 Type 2 diabetes mellitus with diabetic polyneuropathy (ICD-10 - E11.42) 12/06/2022 Tinea unguium (ICD-1 0 - B35.1) 12/06/2022 Type 2 diabetes mellitus with diabetic polyneuropathy (ICD-10 - E11.42) 03/17/2023 Type 2 diabetes mellitus with diabetic polyneuropathy (ICD-10 - E11.42) 03/17/2023 Tinea unguium (ICD-1 0 - B35.1) 08/02/2022 Tinea unguium (ICD-1 0 - B35.1) 08/02/2022 Ingrowing nail (ICD-10 - L60.0) PLAN OF TREATMENT Pending Test Test Name Order Date 86394-DFLBMGG NAIL, 6 OR MORE 08/03/2021 70980-LRWXURY NAIL, 6 OR MORE 02/01/2022 08702-FDKUSMX NAIL, 6 OR MORE 08/02/2022 74216-QRYDCMH NAIL, 6 OR MORE 12/06/2022 11811-MSLEEGP NAIL, 6 OR MORE 03/17/2023 69323-KHRCADF NAIL, 6 OR MORE 01/03/2020 59755-Dmhvqxdr Plate 08/02/2022 62627-WISH SKIN LESIONS, OVER 4 12/07/19 23 38700-XKKE SKIN LESIONS, OVER 4 08/03/19 23 29221-FOXE SKIN LESIONS, OVER 4 03/17/20 23 83821-CYKP SKIN LESIONS, 2 TO 4 02/02/20 22 54524-HTWV SKIN LESIONS, 2 TO 4 08/04/19 22 Next Appt Details Provider Name:Juana Obregon , 07/04/2023 09:15:00 AM, [address] [facility], [place], [address], Insurance Providers Payer Name Payer Address Payer Phone Subscriber Number Group Number Insured Name Patient Relationship to Insured Coverage Start Date Coverage End Date Medicare National [employer] [address] [place] [address] [id number] Elza Ryan Self - patient is the insured MEDICAL (GENERAL) HISTORY Medical History History ICD Code Cancer Diabetic High blood pressure Surgical History Surgery Date(Month/Year) Breast Cancer Surgery 06/23/1999
--- OUTSIDE RECORDS SUMMARY | 2023-05-23 08:59 | XMS_ITS | Patient Health Record ---
Author Name Unknown Organization [facility] Address [address] [place] [address] Care Team Providers Care Used Building Materials Yard Worker Name Role Phone Po Kathrin BUNCH Primary Care Provider Danie Red Unavailable [phone] Amanda Thorpe Unavailable Unavailable ALLERGIES No Known Allergies REASON FOR REFERRAL No Information MEDICATIONS Medication SIG (Take, Route, Frequency, Duration) Notes Start Date End Date Status MiraLax (colon prep) 17 GM/SCOOP 1 238 Gm Bottle mixed with Gatorade or Crystal Light Orally begin at 5:00 p.m. the day before the procedure for 1 day 04/04/2023 Active Dulcolax (colon prep) 5 MG take at 3:00 p.m and 7:00p.m. Orally two tablets twice a day for one day for 1 day 04/07/2023 Active Omeprazole 40 MG 1 Orally Once a day for 30 day(s) 07/22/2022 Active amLODIPine Besylate 5 MG 1 tablet Orally Once a day Active Rosuvastatin Calcium 20 MG Oral for 90 Active hydrALAZINE HCl 10 MG Oral for 90 Active Dulcolax (colon prep) 5 MG take at 3:00 p.m and 7:00p.m. Orally two tablets twice a day for one day for 1 day 07/27/2022 Active Lisinopril 40 MG 1 tablet Orally Once a day Active metFORMIN HCl 1000 MG 1 tablet with a me al Orally twice a day Active Vitamin B-12 1000 MCG 1 tablet Orally On ce a day Not-Taking MiraLax (colon prep) 17 GM/SCOOP 1 238Gm bottle mixed with Gatorade or Crystal Light Orally begin at 5:00 p.m. the day before the procedure for 1 day 07/27/2022 Active IMMUNIZATIONS Vaccine Route Administration Date Status Comme nts Influenza Unknown 02/06/2018 Administered Influenza Unknown 07/22/2022 Refused SOCIAL HISTORY Sex Assigned At : Social History Observation Description Sex Assigned At Unknown PROBLEMS Problem Type ICD Code Onset Dates Problem Status W/U Status Risk SNOMED Code Notes Problem Colon cancer screening (Z12.11) Active confirmed 942577758 Problem Encounter for screening for malignant neoplasm of colon (Z12.11) Active confirmed 027506746 Problem Gastroesophageal reflux disease without esophagitis (K21.9) Active confirmed 675160717 Problem Preprocedural examination (Z01.818) Active confirmed 367062689864415 Problem Gastroesophageal reflux disease, unspecified whether esophagitis present (K21.9) Active confirmed 227268723 Problem Esophageal dysphagia (R13.19) Active confirmed 90990267 Encounters Encounter Location Date Provider Diagnosis [facility] [address] [place] [id number] 10/11/2022 Danie Iqbal [facility] [address] [place] [address] [id number] 01/31/2023 Danie Iqbal [facility] [address] [place] [id number] 05/23/2023 Danie Iqbal [facility] [address] [place] [phone] 07/22/2022 Danie Iqbal Gastroesophageal ref lux disease, unspecified whether esophagitis present K21.9 ; Esophageal dysphagia R13.19 and Colon cancer screening Z12.11 [facility] [address] [place] [phone] 07/22/2022 Danie Iqbal [facility] [address] [place] [phone] 10/11/2022 Danie Iqbal [facility] [address] [place] [phone] 01/31/2023 Danie Iqbal [facility] [address] [place] [phone] 04/04/2023 Danie Iqbal ASSESSMENTS Encounter Date Diagnosis Assessment Notes Treatment Notes Treatment Clinical Notes 07/22/2022 Gastroesophageal ref lux disease, unspecified whether esophagitis present (ICD-10 - K21.9) Do not take the Metformin the night before nor on the morning of the procedures. Stop aspirin for 1 week before the procedures 07/22/2022 Esophageal dysphagia (ICD-10 - R13.19) 07/22/2022 Colon cancer screeni ng (ICD-10 - Z12.11) PLAN OF TREATMENT Future Test Test Name Order Date COLONOSCOPY 06/23/2012 UPPER GI ENDOSCOPY BALLOOON DILATION OF ESOPH 07/22/2022 COLONOSCOPY 07/22/2022 Next Appt Details Provider Name:Danie Iqbal , 05/23/2023 10:30:00 AM, [address] [place] [address] , [place], [place], [phone], Insurance Providers Payer Name Payer Address Payer Phone Subscriber Number Group Number Insured Name Patient Relationship to Insured Coverage Start Date Coverage End Date MED[place]ARE OF [place] [address] [place], [place] [id number] ANA LUISA LORENZO Self - patient is the insured MEDICAL (GENERAL) HISTORY Medical History History ICD Code NIDDM Hypertension Hyperlipidemia EGD in 08/2010 neg. except minimal gastri tis, neg. H.pylori; minimal HH Left breast cancer-mastectomy and chemot herapy 1999 Denies SC,CVA,Lung disease,renal disease Neg colonoscopy with Dr. Lazaro in 2002 Neg. screening colonoscopy i n 09/2012--diverticulosis and internal hemorrhoids Surgical History Surgery Date(Month/Year) Mastectomy on left breast/reconstruction surgery--had chemo therapy 1999 Cholecystectomy
[2023-05-23 09:19] VITALS: BP 168/69; PULSE 55; RESP 16; TEMP 36.7; O2SAT 99; BMI 27.1
[2023-05-23 09:27] LABS: Glucose, Whole Blood 128 mg/dL (60-115)
[2023-05-23] MEDS: Sodium Phosphate,Mono-Dibasic 133 ML ENEMA PR ×2 (09:28→09:37)
[2023-05-23] MEDS: Lactated Ringers 1,000 ML 50 ML IVCONT (09:48)
--- NOTE | 2023-05-23 10:07 | P.CONAN_ITS ---
[facility] Active Problems Active Problems: All Active Problems (Updated 02/17/23 @ 12:03 by Kathrin Lopez MD) Left leg swelling (Acute) Epigastric pain (Acute) Otitis externa (Acute) Strain of latissimus dorsi muscle (Acute) Muscle strain (Acute) Dysphagia (Acute) Dizziness (Acute) Hip pain, left (Acute) Constipation (Acute) Back pain (Acute) CHF (congestive heart failure) (Acute) Upper respiratory tract infection (Acute) Cough (Acute) Type 2 diabetes mellitus with hyperglycemia (Acute) History of breast cancer (Acute) GERD (gastroesophageal reflux disease) (Acute) Hypertension (Acute) Hypercholesterolemia (Acute) Coronary artery disease (Acute) Past Medical History Medical History (Updated 02/17/23 @ 12:03 by Kathrin Lopez MD) Subdural hematoma Type 2 diabetes mellitus with hyperglycemia History of breast cancer GERD (gastroesophageal reflux disease) Hypertension Hypercholesterolemia Coronary artery disease Family History Family History Father Past heart attack Hypertension Mother Throat cancer Family history of problems with anesthesia: No Surgical History Surgical History (Updated 05/23/23 @ 09:14 by Wendy Pires) H/O colonoscopy History of left mastectomy History of cholecystectomy History of tonsillectomy History of Problems with Anesthesia: No Social History Social History Household Members: Children Housing: House Are you a primary customer care representative to a significant other at home: No Do you presently have visiting nurse or other home services: No Alcohol intake: former Patient Tobacco Use Status: Never used Tobacco e-Cigarette/Vaping Use: Never Used Second Hand Smoke Exposure: No Use of substances other than those prescribed or required for medical reasons: No Are you DNR?: No Advance Directives: No Advance Directives Information Provided: Yes service: No Current occupational status: retired Cognitive needs: No Hearing needs: No Vision needs: Yes Meds Allergies Allergy/AdvReac Type Severity Reaction Status Date / Time hydrochlorothiazide Allergy Unknown unknown Verified 05/23/23 09:15 amlodipine AdvReac Intermediate leg Verified 05/23/23 09:15 swelling Active Medications: Current Medications Lactated Ringer's (Lr) 1,000 mls @ 50 mls/hr IVCONT .Q20H GIUSEPPE Last Admin: 05/23/23 09:48 Dose: 50 mls/hr Ondansetron HCl (Ondansetron Hcl 4 Mg/2 Ml Vial) 4 mg IVPUSH ONCE PRN PRN Reason: Nausea and Vomiting Sodium Biphosphate/Sodium Phosphate (Sodium Phosphate,Sargent-Dibasic 133 Ml Enema) 133 ml PA ONCE PRN PRN Reason: Poor Colonoscopy Prep Results Last Admin: 05/23/23 09:37 Dose: 133 ml Home Medications Medication Instructions Recorded Confirmed Last Taken Type aspirin 81 mg tablet,delayed 81 mg PO DAILY 02/25/20 05/23/23 05/16/23 History release (Adult Aspirin Regimen) Exam Height,Weight and Vital Signs: Height 5 ft 6 in Weight 76.113 kg Last Vital Signs Temp 98.1 F 05/23/23 09:19 Pulse 55 05/23/23 09:19 Resp 16 05/23/23 09:19 BP 168/69 H 05/23/23 09:19 Pulse Ox 99 05/23/23 09:19 O2 Del Method Room Air 05/23/23 09:19 Pertinent Lab Results Pertinent Lab Results: Laboratory Tests 05/23/23 09:23 POC Glucose 128 H Airway Mallampati Class: II TM Dist: >3cm Neck ROM: Full Partial: Lower Loose/Missing/Broken Teeth: Yes and Upper Heart: rrr Lungs: clear Assessment and Plan Final Anesthetic Review Family History of Problems with Anesthesia: No History of Problems with Anesthesia: No NPO: Yes ASA Class: III Final Preanesthetic Review: No Changes in Pt Med Stat, Meds/Allgs Chart Reviewed, Consent Obtained/Reviewed and Anes Risks/Benef Reviewed Patient Risk: Intermediate Procedure Risk: Low Anesthetic Plan Anesthetic Plan: MAC: Disposition: Standard PACU
--- NOTE | 2023-05-23 10:10 | PC.NURSE ---
Two enemas given by this nurse in preop. Last output visualized by this nurse, clear yellow water output. Able to see the bottom of toilet. Dr. Iqbal made aware.
--- NOTE | 2023-05-23 11:29 | P.BOP_ITS ---
Brief Operative Note Date of Service: 05/23/23 Pre-op diagnosis: GERD, Screening Post-op diagnosis: other (Hiatal hernia, Diverticulosis) Procedure: EGD with biopsies, Colonoscopy to the cecum and TI Surgeon: Danie Iqbal MD Anesthesia: MAC Was an Registered Clinical Dietitian used for this Procedure?: No Estimated blood loss (mL): 2.0 Pathology: other (A. EG Junction at 35cm) Condition: stable Disposition: PACU
[2023-05-23 11:30] VITALS: BP 120/51; PULSE 52; RESP 16; TEMP 36.4; O2SAT 100
[2023-05-23 11:47] VITALS: BP 156/43; PULSE 46; RESP 17; TEMP 36.4; O2SAT 97
--- NOTE | 2023-05-23 12:05 | OP_ITS ---
DATE OF SERVICE: 05/23/2023 SURGEON: Danie Iqbal MD INDICATIONS: The patient presents for evaluation of gastroesophageal reflux, occasional dysphagia, and colorectal cancer screening. Full consent has been obtained from her for this, including risks of bleeding and perforation. PREOPERATIVE DIAGNOSIS: POSTOPERATIVE DIAGNOSIS: PROCEDURE PERFORMED: Esophagogastroduodenoscopy with biopsies and colonoscopy to cecum and terminal ileum. ESTIMATED BLOOD LOSS: COMPLICATIONS: ANESTHESIA: Monitored anesthesia care. ASSISTANTS: SPECIMENS: PREOPERATIVE DIAGNOSES: Gastroesophageal reflux, intermittent dysphagia, and colorectal cancer screening. POSTOPERATIVE DIAGNOSES: Gastroesophageal reflux, intermittent dysphagia, and colorectal cancer screening, small hiatal hernia, sigmoid diverticulosis, and internal hemorrhoids. DESCRIPTION OF PROCEDURE: The patient was placed in the left lateral decubitus position. The Olympus video gastroscope was passed in the posterior oropharynx and upper esophagus under direct vision. The scope was passed slowly into the distal esophagus. The gastroesophageal junction appeared at 35 cm. There was some very minimal irregularity but no evidence of any esophagitis, Pedraza's mucosa, nor any type of esophageal stricture. The scope easily entered into the stomach and was advanced to the pylorus. The duodenum was cannulated to the descending portion. The duodenum including the bulb appeared normal without mass or ulceration. The scope was withdrawn back in the stomach. The gastric antrum and body appeared normal with good peristalsis. The scope was retroflexed visualizing the proximal stomach carefully, which appeared normal, without any sign of mass or ulceration. The scope was straightened and withdrawn back in the esophagus. The esophageal mucosa appeared normal. Biopsies were obtained at the EG junction at 35 cm. Again, there was no sign of any esophageal stricture nor ring. The scope was withdrawn through the remainder of the esophagus, which appeared normal. The scope was withdrawn from the patient. She was turned around for the colonoscopy. The digital rectal exam revealed no abnormalities. The Olympus video pediatric colonoscope was entered into the rectum and advanced to the cecum with the assistance of abdominal wall pressure. Once in the cecum, I did identify normal-appearing cecal pouch with appendiceal orifice and a normal-appearing ileocecal valve. The terminal ileum was cannulated and appeared normal. The scope was withdrawn back in the colon. The entire cecum and ileocecal valve appeared normal. The scope was slowly withdrawn assessing all mucosal surfaces carefully. Preparation was excellent. I did not visualize any sign of polyps, colitis, nor angiodysplasia. There was a mild amount of sigmoid diverticulosis. In the rectum, scope was retroflexed visualizing internal hemorrhoids, but no other pathology. The rectal mucosa appeared normal. Scope was straightened and withdrawn from the patient. She tolerated both procedures well and was returned to the recovery area in stable condition. IMPRESSION: 1. Small hiatal hernia, gastroesophageal reflux. 2. Diverticulosis. 3. Internal hemorrhoids. PLAN: The results of the biopsies will be checked. At this point, she reports that she has been doing well without any recent episodes of dysphagia. She has been able to eat everything comfortably. Given her age, I do not think she will need any further screening colonoscopies. As such, she will see me again on a p.r.n. basis. MD MASON Perez/RACHAEL / [id number] MTDD
== END 2023-05-23 12:35 | disposition home or self-care (01) ==
PROVIDERS: PCP Internal Medicine; Visit Provider Internal Medicine
PROC: 0DJD8ZZ Inspection of Lower Intestinal Tract, Via Natural or Artificial Opening Endoscopic (ICD-10-PCS; CPT 45378; principal; 2023-05-23 10:20)
PROC: (CPT 43239; 2023-05-23 10:20)
DX: Z12.11 Encounter for screening for malignant neoplasm of colon (principal); K57.30 Diverticulosis of large intestine without perforation or abscess without bleeding; K64.8 Other hemorrhoids; R13.19 Other dysphagia; K21.9 Gastro-esophageal reflux disease without esophagitis; K44.9 Diaphragmatic hernia without obstruction or gangrene; I10 Essential (primary) hypertension; E78.5 Hyperlipidemia, unspecified; Z85.3 Personal history of malignant neoplasm of breast; E11.9 Type 2 diabetes mellitus without complications; Z79.84 Long term (current) use of oral hypoglycemic drugs; Z79.899 Other long term (current) drug therapy
CPT/HCPCS: 43239; G0121; 82947; 88305; J2704

== ENCOUNTER 2023-06-06 10:04 | Outpatient (AMB) | payer MEDICARE, SELFPAY ==
[2023-06-06 10:07] VITALS: BP 142/83; PULSE 53; O2SAT 97; BMI 27.0
--- NOTE | 2023-06-06 10:07 | MHC.PC.OV ---
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: No Allergies hydrochlorothiazide Allergy (Unknown, Verified 06/06/23 10:08) unknown amlodipine Adverse Reaction (Intermediate, Verified 06/06/23 10:08) leg swelling Medication List - Last Reconciled 06/06/23 by Kathrin Lopez MD aspirin (Adult Aspirin Regimen) 81 mg PO DAILY blood sugar diagnostic ([employer] Ultra Test strips) As directed check the blood sugar once a day blood-glucose meter As directed check the blood sugar once a day ONE TOUCH ULTRA 2 cholecalciferol (vitamin D3) (Vitamin D3) 125 mcg PO DAILY cyanocobalamin (vitamin B-12) 1,000 mcg PO DAILY fluticasone propionate 50 mcg/actuation 2 sprays intranasal DAILY hydralazine 25 mg PO BID 90 days lancets ([employer] UltraSoft 2 Lancet) As directed once a day lisinopril 40 mg PO DAILY 90 days metformin 1,000 mg PO BID omeprazole 20 mg PO DAILY rosuvastatin 20 mg PO DAILY Tobacco use date assessed: 06/06/23 Fall risk assessment: No Falls in past year Last assessed Fall Risk: 06/06/23 Dental Screening Dental Screen Date: 06/06/23 Did you have a dental visit in the last 12 months?: No Did you have a dental problem in the last 6 months where you did not have access to dental care?: No Was dental information given to patient?: Patient has dentist HPI 3 month f/u HPI Details 77-year-old overweight female with controlled diabetes mellitus history of breast cancer GERD hypertension hypercholesterolemia coronary artery disease congestive heart failure coming in for follow-up. Last seen in February 2023 had some leg swelling an ultrasound was done negative results. Patient's colonoscopy is due mammogram is due. Review of the notes colonoscopy and EGD showing small hiatal hernia with reflux diverticulosis internal hemorrhoids was done in June 02 2023. Patient complains last night of starting to have some chest pains which has been persistent till now denies doing anything yesterday and denies any thing that precipitated patient does not complain of shortness of breath does have pain on pressing on the chest as well as stretching arms out. Otherwise no nausea no vomiting no fevers no coughs no colds no bowel bladder symptoms. [facility] Medical History (Updated 06/06/23 @ 11:31 by Kathrin Lopez MD) Subdural hematoma Type 2 diabetes mellitus with hyperglycemia History of breast cancer GERD (gastroesophageal reflux disease) Hypertension Hypercholesterolemia Coronary artery disease Surgical History (Updated 05/23/23 @ 09:14 by Wendy Pires) H/O colonoscopy History of left mastectomy History of cholecystectomy History of tonsillectomy Family History Father Past heart attack Hypertension Mother Throat cancer Social History Household Members: Children Housing: House Are you a primary patient care provider to a significant other at home: No Do you presently have visiting nurse or other home services: No Alcohol intake: former Patient Tobacco Use Status: Never used Tobacco e-Cigarette/Vaping Use: Never Used Second Hand Smoke Exposure: No service: No Current occupational status: retired Cognitive needs: No Hearing needs: No Vision needs: Yes Questionnaire Thrive Questionnaire Date Thrive assessed: 06/06/23 I am a: Patient What is your living situation today?: I have a steady place to live Within the past 12 months, did the food you bought not last and you didn't have the money to get more?: Never true Within the past 12 months, did you worry whether your food would run out before you got money to buy more?: Never true Do you have trouble paying for medicines?: No Do you have trouble getting transportation to medical appointments?: No Do you have trouble paying your heating and electricity bill?: No Do you have trouble taking care of your child, family member or friend?: No Do you have trouble with day-to-day activities such as bathing, preparing meals, shopping, managing finances, etc.?: No Are you currently unemployed and looking for a job?: No Are you interested in more education?: No Please select the resources that you would like help with: None THRIVE Score: 0 AUDIT C Alcohol Use Questionnaire (AUDIT-C) 1. How often do you have a drink containing alcohol?: Monthly or less 2. How many drinks containing alcohol do you have on a typical day when you are drinking?: 1 or 2 3. How often do you have six or more drinks on one occasion?: Never Total Score: 1 PAULA-7 AMB Questionnaire PAULA-7 Date PAULA - 7 assessed: 06/06/23 Source: Developed by Drs. Danie Musa, Janessa Hassan, Miguel Ángel Xavier and colleagues, with an educational jocelyn from [employer]. Physical exam (Primary Care) Vital Signs: Last Vital Signs Pulse 53 06/06/23 10:07 BP 142/83 H 06/06/23 10:07 Pulse Ox 97 06/06/23 10:07 Oxygen Delivery Method Room Air 06/06/23 10:07 BMI result Body Mass Index 27.0 Tobacco/Smoking Status: Tobacco use Status Tobacco use date assessed 06/06/23 06/06/23 10:08 Patient Tobacco Use Status Never used Tobacco 06/06/23 10:08 e-Cigarette/Vaping Use Never Used 06/06/23 10:08 Thrive Assessment: Date of Thrive Assessment Date Thrive assessed 06/06/23 06/06/23 10:08 Const General: alert; No acute distress Eyes Conjunctivae: conjunctivae normal Resp Auscultation: clear to auscultation bilaterally Cardio Rate: regular rate Rhythm: regular rhythm GI Inspection: Yes normal to inspection Extrem General: Yes normal to inspection and No edema Results AMB Hemoglobin A1c AMB Hemoglobin A1c 6.4 % Last Edit by JACQUELINE Rivera on 06/06/23 10:42 Results Reviewed Results Reviewed: Laboratory Last Values Hgb A1c (Clinic) 6.4 % (4.0-6.0) H 06/06/23 10:09 Assessment and Plan Assessment & Plan (1) Type 2 diabetes mellitus with hyperglycemia: Code(s): E11.65 - Type 2 diabetes mellitus with hyperglycemia Qualifiers: Diabetes mellitus [employer] insulin use: without [place] [facility] use Qualified Code(s): E11.65 - Type 2 diabetes mellitus with hyperglycemia Plan: Decrease the amount of carbohydrate intake, pasta, bread, rice and potatoes are all sugar and that is aside from all the sweet stuff, remember that fruits are good but they are Sweet also. Hemoglobin A1c goal of less than 7.0 presently on metformin 1000 mg twice a day (2) History of breast cancer: Comment: 1999 with left mastectomy chemotherapy Dr. Thorpe Code(s): Z85.3 - Personal history of malignant neoplasm of breast Plan: Reminded about mammogram (3) Coronary artery disease: Code(s): I25.10 - Atherosclerotic heart disease of [place] coronary artery without angina pectoris Qualifiers: Associated angina: without angina Coronary Disease-Associated Artery/Lesion type: [place] artery [place] vs. transplanted heart: [place] heart Qualified Code(s): I25.10 - Atherosclerotic heart disease of [place] coronary artery without angina pectoris Plan: Control the cholesterol, weight, blood pressure, diabetes continue with aspirin 81 mg once a day . (4) Hypercholesterolemia: Code(s): E78.00 - Pure hypercholesterolemia, unspecified Plan: Avoid fried foods, chicken skin, eggs, butter margarine, pastries and meat. Be it pork or beef they have a lot of cholesterol LDL goal of less than 70 and triglyceride of less than 150 patient on rosuvastatin 20 mg once a day (5) Hypertension: Code(s): I10 - Essential (primary) hypertension Qualifiers: Hypertension type: essential hypertension Qualified Code(s): I10 - Essential (primary) hypertension Plan: Continue with blood pressure medication. Decrease salt intake and exercise on lisinopril 40 mg once a day hydralazine 25 mg twice a day. Blood pressure is elevated today. Prescription for blood pressure machine given to monitor at home and record (6) GERD (gastroesophageal reflux disease): Code(s): K21.9 - Gastro-esophageal reflux disease without esophagitis Qualifiers: Esophagitis presence: without esophagitis Qualified Code(s): K21.9 - Gastro-esophageal reflux disease without esophagitis Plan: GERD plan (7) Costochondritis: Code(s): M94.0 - Chondrocostal junction syndrome [[place]] Plan: EKG ordered. Reviewed showing bradycardia sinus with LVH and no changes from November 2021 Reassurance Orders: Orders AMB Hemoglobin A1c Today E11.65 - Type 2 diabetes mellitus with hyperglycemia AMB EKG-In Office Today I25.10 - Atherosclerotic heart disease of [place] coronary artery without angina pectoris Medications: New blood pressure monitor (Blood Pressure Kit) As directed 1 ea 0RF I10 - Essential (primary) hypertension Refilled omeprazole 20 mg PO DAILY 90 caps 0RF R10.13 - Epigastric pain omeprazole 20 mg PO DAILY 90 caps 0RF R10.13 - Epigastric pain hydralazine 25 mg PO BID 90 days 180 tabs 3RF I10 - Essential (primary) hypertension rosuvastatin 20 mg PO DAILY 90 tabs 2RF lisinopril 40 mg PO DAILY 90 days 90 tabs 3RF I10 - Essential (primary) hypertension Coding Level of Care Code Est Pt Level 4 (18012) Diagnoses Type 2 diabetes mellitus with hyperglycemia, without long-term current use of insulin E11.65 Diabetes mellitus [employer] insulin use: without [place] [facility] use History of breast cancer Z85.3 Coronary artery disease involving [place] coronary artery of [place] heart without angina pectoris I25.10 Associated angina: without angina Coronary Disease-Associated Artery/Lesion type: [place] artery [place] vs. transplanted heart: [place] heart Hypercholesterolemia E78.00 Essential hypertension I10 Hypertension type: essential hypertension Gastroesophageal reflux disease without esophagitis K21.9 Esophagitis presence: without esophagitis Costochondritis M94.0
== END 2023-06-06 11:47 | disposition home or self-care (01) ==
PROVIDERS: PCP Internal Medicine; Visit Provider Internal Medicine
DX: E11.65 Type 2 diabetes mellitus with hyperglycemia (principal); I50.9 Heart failure, unspecified; Z85.3 Personal history of malignant neoplasm of breast; E78.00 Pure hypercholesterolemia, unspecified; I25.10 Atherosclerotic heart disease of native coronary artery without angina pectoris; I10 Essential (primary) hypertension; K21.9 Gastro-esophageal reflux disease without esophagitis; M94.0 Chondrocostal junction syndrome [Tietze]
CPT/HCPCS: 83036; 99214

== ENCOUNTER 2023-06-13 08:13 | Outpatient (REF) | payer MEDICARE, SELFPAY ==
--- NOTE | ~2023-06-13 | MM_ITS ---
EXAMINATION: MM SCREENING DIGITAL BREAST TOMOSYNTHESIS, BILATERAL CLINICAL INFORMATION: Screening. Asymptomatic. The patient is status post left mastectomy. COMPARISON: Mammography: This study is compared with prior exams dating back to 2018. TECHNIQUE: Digital breast tomosynthesis is performed in both the craniocaudal and mediolateral oblique views along with computer-aided detection (CAD). Synthesized 2D images are generated from the tomosynthesis. FINDINGS: There are scattered areas of fibroglandular density (ACR BI-RADS breast composition Category b). There are no significant masses, abnormal calcifications, or other abnormalities. MM/MM tomosynthesis screening RT IMPRESSION: No mammographic evidence of malignancy. ASSESSMENT: BI-RADS BI-RADS 1 - Negative RECOMMENDATION: Routine annual mammography screening. 1 year F/U This examination should not preclude the clinical evaluation of a suspicious palpable abnormality. This patient's information was entered into a reminder system with a target due date for their next mammogram.
== END 2023-06-13 08:14 | disposition home or self-care (01) ==
LOC: HO.MAMMO 08:13
PROVIDERS: PCP Internal Medicine; Visit Provider Internal Medicine
DX: Z12.31 Encounter for screening mammogram for malignant neoplasm of breast (principal)
CPT/HCPCS: 77063; 77067

== ENCOUNTER → 2023-06-13 08:45 | Outpatient (BNV) | payer MEDICARE, SELFPAY | PROVIDERS: PCP Internal Medicine; Visit Provider Radiology Diagnostic Radiology | DX: Z12.31 Encounter for screening mammogram for malignant neoplasm of breast (principal) | CPT/HCPCS: 77063; 77067 ==

== ENCOUNTER 2023-09-12 06:37 | Outpatient (REF) | payer MEDICARE, SELFPAY ==
[2023-09-12 07:03] LABS: MANUAL DIFF FLAG NO
[2023-09-12 07:50] LABS: Basophils Percent Auto 0.6 % (0-2); Eosinophils Absolute Auto 0.1 X10*3/uL (0.0-0.4); Eosinophils Percent Auto 2.3 % (0-4); Hematocrit 40.9 % (37.0-47.0); Imm Gran Abs Auto 0.01 X10*3/uL (0.00-0.03); Imm Gran Pct Auto 0.2 % (0.0-0.4); Lymphocytes Absolute Auto 1.9 X10*3/uL (1.2-4.9); Lymphocytes Percent Auto 39.6 % (20-40); Mean Corpuscular HGB Conc 34.2 g/dl (31.0-35.0); Mean Corpuscular Hemoglobin 30.2 pg (27.0-33.0); Mean Corpuscular Volume 88.3 fL (80.0-98.0); Mean Platelet Volume 11.3 fL (9.4-12.3); Monocytes Absolute Auto 0.4 X10*3/uL (0.1-1.2); Monocytes Percent Auto 8.4 % (2-11); Neutrophils Absolute Auto 2.3 x10*3/uL (2.0-8.3); Neutrophils Percent Auto 48.9 % (45-73); Platelet Count 190 X10*3/uL (160-400); Red Blood Count 4.63 X10*6/uL (4.20-5.50); Red Cell Distribution Width 12.9 % (11.0-16.0); White Blood Count 4.8 X10*3/uL (4.8-10.8)
[2023-09-12 08:32] LABS: Alanine Aminotransferase 19 U/L (0-31); Albumin Level 4.3 g/dL (3.5-5.0); Alkaline Phosphatase 96 U/L (39-117); Anion Gap 15 (12-20); Aspartate Amino Transferase 24 U/L (5-31); Bilirubin Total 0.7 mg/dL (0.0-1.0); Blood Urea Nitrogen 12 mg/dL (9-16); Calcium 10.1 mg/dL (8.4-10.2); Carbon Dioxide 27 mmol/L (22-29); Chloride 106 mmol/L (96-108); Cholesterol 166 mg/dL (<200); Estimated Glomerular Filt Rate > 60; Glucose Random 119 mg/dL (60-115); HDL Cholesterol 63 mg/dL (>40); LDL Cholesterol Calculated 87 mg/dL (<100); Potassium 4.3 mmol/L (3.3-5.1); Sodium 144 mmol/L (135-145); Total Protein 7.7 g/dL (6.5-8.0); Triglycerides 83 mg/dL (<150)
[2023-09-12 08:43] LABS: Creatinine Urine 130.36 mg/dL; Microalbum/Creatinine Ratio Ur 38.3 ug/mg cr (<30)
[2023-09-12 08:51] LABS: Vitamin D 25-OH Total 15.7 ng/mL (>30)
[2023-09-12 09:13] LABS: Folate 11.4 ng/mL (> or = 4.0); Vitamin B12 358 pg/mL (200-900)
== END 2023-09-12 06:38 | disposition home or self-care (01) ==
LOC: HO.LAB 06:37
PROVIDERS: PCP Internal Medicine; Visit Provider Internal Medicine
DX: E11.65 Type 2 diabetes mellitus with hyperglycemia (principal); E78.00 Pure hypercholesterolemia, unspecified
CPT/HCPCS: 36415; 80053; 80061; 82043; 82306; 82570; 82607; 82746; 84439; 85025

== ENCOUNTER 2023-09-15 10:41 | Outpatient (AMB) | payer MEDICARE, SELFPAY ==
[2023-09-15 10:46] VITALS: BP 164/78; PULSE 52; O2SAT 98; BMI 27.3
--- NOTE | 2023-09-15 10:46 | A.OFFPC_ITS ---
Vital Signs 09/15/23 10:46 Height 5 ft 6 in Weight 169 lb BMI 27.3 BP 164/78 H Blood Pressure Location Lt brachial Position Sitting Pulse 52 Pulse Source Pulse Oximeter Pulse Oximetry (%) 98 Oxygen Delivery Method Room Air Intake Visit Reasons: DM Duplicator Punch Set Up Operator Required: No Allergies hydrochlorothiazide Allergy (Unknown, Verified 09/15/23 10:47) unknown amlodipine Adverse Reaction (Intermediate, Verified 09/15/23 10:47) leg swelling Medication List - Last Reconciled 09/15/23 by Kathrin Lopez MD aspirin (Adult Aspirin Regimen) 81 mg PO DAILY blood pressure monitor (Blood Pressure Kit) As directed blood sugar diagnostic (OneTouch Ultra Test strips) As directed check the blood sugar once a day blood-glucose meter As directed check the blood sugar once a day ONE TOUCH ULTRA 2 cholecalciferol (vitamin D3) (Vitamin D3) 125 mcg PO DAILY compr.stocking,thigh,reg,large As directed 20-30 mm hg compress.stocking,knee,reg,lrg As directed 20-30 mm HG cyanocobalamin (vitamin B-12) 1,000 mcg PO DAILY fluticasone propionate 50 mcg/actuation 2 sprays intranasal DAILY hydralazine 25 mg PO Q6H 90 days lancets (KantoxTouch UltraSoft 2 Lancet) As directed once a day lisinopril 40 mg PO DAILY 90 days metformin 1,000 mg PO BID omeprazole 20 mg PO DAILY rosuvastatin 40 mg PO DAILY Tobacco use date assessed: 09/15/23 Fall risk assessment: No Falls in past year Last assessed Fall Risk: 09/15/23 Dental Screening Dental Screen Date: 06/06/23 HPI DM HPI Details 78-year-old overweight female with contr olled diabetes mellitus history of breast cancer coronary artery disease hypercholesterolemia hypertension GERD last seen in May 2023. Patient's colonoscopy is all done. Mammogram is up -to-date June 2023. Bone density was done in April 2022. Patient follows up with Hematology-Oncology breast cancer 2000 continue to follow-up with mammogram. [facility] Medical History Subdural hematoma Type 2 diabetes mellitus with hyperglycemia History of breast cancer GERD (gastroesophageal reflux disease) Hypertension Hypercholesterolemia Coronary artery disease Surgical History H/O colonoscopy History of left mastectomy History of cholecystectomy History of tonsillectomy Family History Father Past heart attack Hypertension Mother Throat cancer Social History Household Members: Children Housing: House Are you a primary child caregiver to a significant other at home: No Do you presently have visiting nurse or other home services: No Alcohol intake: former Patient Tobacco Use Status: Never used Tobacco e-Cigarette/Vaping Use: Never Used Second Hand Smoke Exposure: No service: No Current occupational status: retired Cognitive needs: No Hearing needs: No Vision needs: Yes Questionnaire Thrive Questionnaire Date Thrive assessed: 09/15/23 I am a: Patient What is your living situation today?: I have a steady place to live Within the past 12 months, did the food you bought not last and you didn't have the money to get more?: Never true Within the past 12 months, did you worry whether your food would run out before you got money to buy more?: Never true Do you have trouble paying for medicines?: No Do you have trouble getting transportation to medical appointments?: No Do you have trouble paying your heating and electricity bill?: No Do you have trouble taking care of your child, family member or friend?: No Do you have trouble with day-to-day activities such as bathing, preparing meals, shopping, managing finances, etc.?: No Are you currently unemployed and looking for a job?: No Are you interested in more education?: No Please select the resources that you would like help with: None THRIVE Score: 0 AUDIT C Alcohol Use Questionnaire (AUDIT-C) 1. How often do you have a drink containing alcohol?: Monthly or less 2. How many drinks containing alcohol do you have on a typical day when you are drinking?: 1 or 2 3. How often do you have six or more drinks on one occasion?: Never Total Score: 1 PAULA-7 AMB Questionnaire PAULA-7 Date PAULA - 7 assessed: 06/06/23 Source: Developed by Drs. Danie Musa, Janessa Hassan, Miguel Ángel Xavier and colleagues, with an educational jocelyn from [employer]. Physical exam (Primary Care) Vital Signs: Last Vital Signs Pulse 52 09/15/23 10:46 BP 164/78 H 09/15/23 10:46 Pulse Ox 98 09/15/23 10:46 Oxygen Delivery Method Room Air 09/15/23 10:46 BMI result Body Mass Index 27.3 Tobacco/Smoking Status: Tobacco use Status Tobacco use date assessed 09/15/23 09/15/23 10:52 Patient Tobacco Use Status Never used Tobacco 09/15/23 10:52 e-Cigarette/Vaping Use Never Used 09/15/23 10:52 Thrive Assessment: Date of Thrive Assessment Date Thrive assessed 09/15/23 09/15/23 10:52 Const General: alert; No acute distress Eyes Conjunctivae: conjunctivae normal Resp Auscultation: clear to auscultation bilaterally Cardio Rate: regular rate Rhythm: regular rhythm GI Inspection: Yes normal to inspection Extrem General: Yes normal to inspection and No edema Results AMB Hemoglobin A1c AMB Hemoglobin A1c 6.7 % Last Edit by JACQUELINE Castillo on 09/15/23 11:08 Assessment and Plan Assessment & Plan (1) Type 2 diabetes mellitus with hyperglycemia: Code(s): E11.65 - Type 2 diabetes mellitus with hyperglycemia Qualifiers: Diabetes mellitus senior living insulin use: without salvage determiner use Qualified Code(s): E11.65 - Type 2 diabetes mellitus with hyperglycemia Plan: Decrease the amount of carbohydrate intake, pasta, bread, rice and potatoes are all sugar and that is aside from all the sweet stuff, remember that fruits are good but they are Sweet also. Hemoglobin A1c goal of less than 7.0. Patient on metformin a 1000 mg twice a day. Under control (2) History of breast cancer: Comment: 1999 with left mastectomy chemotherapy Dr. Thorpe Code(s): Z85.3 - Personal history of malignant neoplasm of breast Plan: Patient follows up with Hematology-Oncology and up-to-date with mammogram June 2023 (3) Hypertension: Code(s): I10 - Essential (primary) hypertension Qualifiers: Hypertension type: essential hypertension Qualified Code(s): I10 - Essential (primary) hypertension Plan: Continue with blood pressure medication. Decrease salt intake and exercise presently on lisinopril 40 mg once a day hydralazine 25 mg twice a day. Patient had problems with amlodipine and hydrochlorothiazide discussed with the patient that the blood pressure continues to be elevated. Will increase hydralazine to 25 mg 4 times a day and retest blood pressure on follow-up (4) Hypercholesterolemia: Code(s): E78.00 - Pure hypercholesterolemia, unspecified Plan: Avoid fried foods, chicken skin, eggs, butter margarine, pastries and meat. Be it pork or beef they have a lot of cholesterol LDL goal of less than 70. On rosuvastatin 20 mg once a day. LDL Is still high. LDL goal of less than 70 will increase rosuvastatin 40 mg once a day retest in 3 months (5) Coronary artery disease: Code(s): I25.10 - Atherosclerotic heart disease of [place] coronary artery without angina pectoris Qualifiers: Coronary Disease-Associated Artery/Lesion type: [place] artery [place] vs. transplanted heart: [place] heart Associated angina: without angina Qualified Code(s): I25.10 - Atherosclerotic heart disease of [place] coronary artery without angina pectoris Plan: Control the cholesterol, weight, blood pressure, diabetes continue with aspirin 81 mg once a day (6) GERD (gastroesophageal reflux disease): Code(s): K21.9 - Gastro-esophageal reflux disease without esophagitis Qualifiers: Esophagitis presence: without esophagitis Qualified Code(s): K21.9 - Gastro-esophageal reflux disease without esophagitis Plan: Avoid the foods that causes that usually spicy foods, tomato products, juices, coffee, soda and foods that your sensitive to. After eating do not lie down, allow 3-4 hours before in lie down. And keep the head of bed above 30 degrees to avoid the acid from going up.o9 Orders: Orders AMB Hemoglobin A1c Today E11.65 - Type 2 diabetes mellitus with hyperglycemia Lipid Panel 3 Months E78.00 - Pure hypercholesterolemia, unspecified Comprehensive Met. Panel 3 Months E78.00 - Pure hypercholesterolemia, unspecified B Type Natriuretic Peptide 3 Months E78.00 - Pure hypercholesterolemia, unspecified Hemoglobin A1c 3 Months E78.00 - Pure hypercholesterolemia, unspecified Medications: New compress.stocking,knee,reg,lrg As directed 20-30 mm HG 12 ea 0RF M79.89 - Other specified soft tissue disorders Changed From rosuvastatin 20 mg PO DAILY 90 tabs 2RF To rosuvastatin 40 mg PO DAILY 30 tabs 5RF From hydralazine 25 mg PO BID 90 days 180 tabs 3RF I10 - Essential (primary) hypertension To hydralazine 25 mg PO Q6H 90 days 360 tabs 3RF I10 - Essential (primary) hypertension Refilled compr.stocking,thigh,reg,large As directed 20-30 mm hg 4 ea 0RF M79.89 - Other specified soft tissue disorders Coding Level of Care Code Est Pt Level 4 (07375) Diagnoses Type 2 diabetes mellitus with hyperglycemia, without long-term current use of insulin E11.65 Diabetes mellitus salvage determiner insulin use: without salvage determiner use History of breast cancer Z85.3 Essential hypertension I10 Hypertension type: essential hypertension Hypercholesterolemia E78.00 Coronary artery disease involving [place] coronary artery of [place] heart without angina pectoris I25.10 Coronary Disease-Associated Artery/Lesion type: [place] artery [place] vs. transplanted heart: [place] heart Associated angina: without angina Gastroesophageal reflux disease without esophagitis K21.9 Esophagitis presence: without esophagitis
== END 2023-09-15 11:18 | disposition home or self-care (01) ==
PROVIDERS: PCP Internal Medicine; Visit Provider Internal Medicine
DX: E11.65 Type 2 diabetes mellitus with hyperglycemia (principal); Z85.3 Personal history of malignant neoplasm of breast; I10 Essential (primary) hypertension; E78.00 Pure hypercholesterolemia, unspecified; I25.10 Atherosclerotic heart disease of native coronary artery without angina pectoris; K21.9 Gastro-esophageal reflux disease without esophagitis
CPT/HCPCS: 83036; 99214

== ENCOUNTER 2024-02-03 07:33 | Outpatient (REF) | payer MEDICARE, SELFPAY ==
[2024-02-03 08:57] LABS: Alanine Aminotransferase 18 U/L (0-31); Albumin Level 4.3 g/dL (3.5-5.0); Alkaline Phosphatase 103 U/L (39-117); Anion Gap 10 (12-20); Aspartate Amino Transferase 23 U/L (5-31); Bilirubin Total 0.7 mg/dL (0.0-1.0); Blood Urea Nitrogen 15 mg/dL (9-16); Calcium 9.9 mg/dL (8.4-10.2); Carbon Dioxide 31 mmol/L (22-29); Chloride 105 mmol/L (96-108); Cholesterol 142 mg/dL (<200); Estimated Glomerular Filt Rate > 60; Glucose Random 115 mg/dL (60-115); HDL Cholesterol 62 mg/dL (>40); LDL Cholesterol Calculated 66 mg/dL (<100); Potassium 4.2 mmol/L (3.3-5.1); Sodium 142 mmol/L (135-145); Total Protein 7.6 g/dL (6.5-8.0); Triglycerides 71 mg/dL (<150)
[2024-02-03 08:58] LABS: B Type Natriuretic Peptide 163 pg/mL (<100)
[2024-02-03 09:17] LABS: Creatinine Urine 112.98 mg/dL
[2024-02-03 09:27] LABS: Estimated Average Glucose 143 mg/dL; Hemoglobin A1c % 6.6 % (<6.0)
== END 2024-02-03 07:34 | disposition home or self-care (01) ==
LOC: HO.LAB 07:33
PROVIDERS: PCP Internal Medicine; Visit Provider Internal Medicine
DX: E11.65 Type 2 diabetes mellitus with hyperglycemia (principal); E78.00 Pure hypercholesterolemia, unspecified
CPT/HCPCS: 36415; 80053; 80061; 82570; 83036; 83880

== ENCOUNTER 2024-02-06 10:13 | Outpatient (AMB) | payer MEDICARE, SELFPAY ==
--- NOTE | 2024-02-06 10:20 | MHC.PC.OV ---
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 Mammogram is up-to-date 06/28/2023 bone density is up-to-date 04/27/2022. [facility] Medical History (Updated 02/06/24 @ 11:11 by Kathrin Lopez MD) Subdural hematoma Type 2 diabetes mellitus with hyperglycemia History of breast cancer GERD (gastroesophageal reflux disease) Hypertension Hypercholesterolemia Coronary artery disease Surgical History H/O colonoscopy History of left mastectomy History of cholecystectomy History of tonsillectomy Family History Father Past heart attack Hypertension Mother Throat cancer Social History Household Members: Children Housing: House Are you a primary child care center administrator to a significant other at home: No Do you presently have visiting nurse or other home services: No Alcohol intake: former Patient Tobacco Use Status: Never used Tobacco Tobacco use type: Cigarette e-Cigarette/Vaping Use: Never Used Second Hand Smoke Exposure: No service: No Current occupational status: retired Cognitive needs: No Hearing needs: No Vision needs: Yes Questionnaire PHQ-9 Over the last 2 weeks, how often have you been bothered by any of the following problems? 1. Little interest or pleasure in doing things: not at all 2. Feeling down, depressed, or hopeless: not at all 3. Trouble falling or staying asleep, or sleeping too much: not at all 4. Feeling tired or having little energy: not at all 5. Poor appetite or overeating: not at all 6. Feeling bad about yourself - or that you are a failure or have let yourself or your family down: not at all 7. Trouble concentrating on things, such as reading the newspaper or watching television: not at all 8. Moving or speaking so slowly that other people could have noticed. Or the opposite - being so fidgety or restless that you have been moving around a lot more than usual: not at all 9. Thoughts that you would be better off or of hurting yourself in some way: not at all Total score: 0 Depression Screening Interpretation: Negative Depression Screening Done: Yes Source: Developed by Drs. Danie Musa, Janessa Hassan, Miguel Ángel Xavier and colleagues, with an educational jocelyn from [employer]. Thrive Questionnaire Date Thrive assessed: 09/15/23 Are you currently unemployed and looking for a job?: Yes AUDIT C Alcohol Use Questionnaire (AUDIT-C) 1. How often do you have a drink containing alcohol?: Monthly or less 2. How many drinks containing alcohol do you have on a typical day when you are drinking?: 1 or 2 3. How often do you have six or more drinks on one occasion?: Never Total Score: 1 PAULA-7 AMB Questionnaire PAULA-7 Date PAULA - 7 assessed: 06/06/23 Source: Developed by Drs. Danie Musa, Janessa Hassan, Miguel Ángel Xavier and colleagues, with an educational jocelyn from [employer]. Physical exam (Primary Care) Vital Signs: Last Vital Signs Pulse 55 02/06/24 10:21 BP 152/78 H 02/06/24 10:21 Pulse Ox 96 02/06/24 10:21 Oxygen Delivery Method Room Air 02/06/24 10:21 BMI result Body Mass Index 27.3 Tobacco/Smoking Status: Tobacco use Status Tobacco use date assessed 09/15/23 02/06/24 10:26 Patient Tobacco Use Status Never used Tobacco 02/06/24 10:26 Tobacco use type Cigarette 02/06/24 10:26 e-Cigarette/Vaping Use Never Used 02/06/24 10:26 PHQ-9: PHQ-9 Score PHQ-9: Total score 0 02/06/24 10:26 Depression Screening Interpretation: Negative Thrive Assessment: Date of Thrive Assessment Date Thrive assessed 09/15/23 02/06/24 10:26 Const General: alert; No acute distress Eyes Conjunctivae: conjunctivae normal Resp Auscultation: clear to auscultation bilaterally Cardio Rate: regular rate Rhythm: regular rhythm GI Inspection: Yes normal to inspection Extrem General: Yes normal to inspection and No edema Assessment and Plan Assessment & Plan (1) Type 2 diabetes mellitus with hyperglycemia: Code(s): E11.65 - Type 2 diabetes mellitus with hyperglycemia Qualifiers: Diabetes mellitus long term care pharmacist insulin use: without penitentiary use Qualified Code(s): E11.65 - Type 2 diabetes mellitus with hyperglycemia Plan: Decrease the amount of carbohydrate intake, pasta, bread, rice and potatoes are all sugar and that is aside from all the sweet stuff, remember that fruits are good but they are Sweet also. Hemoglobin A1c goal of less than 7.0. Patient is on metformin a 1000 mg twice a day (2) History of breast cancer: Comment: 1999 with left mastectomy chemotherapy Dr. Thorpe Code(s): Z85.3 - Personal history of malignant neoplasm of breast Plan: Continue with monitoring with mammogram. Patient is up-to-date (3) Hypertension: Code(s): I10 - Essential (primary) hypertension Qualifiers: Hypertension type: essential hypertension Qualified Code(s): I10 - Essential (primary) hypertension Plan: Continue with blood pressure medication. Decrease salt intake and exercise (4) Hypercholesterolemia: Code(s): E78.00 - Pure hypercholesterolemia, unspecified Plan: Avoid fried foods, chicken skin, eggs, butter margarine, pastries and meat. Be it pork or beef they have a lot of cholesterol patient is on rosuvastatin 40 mg once a day LDL goal of less than 70 and triglyceride of less than 150. January blood work (5) Coronary artery disease: Code(s): I25.10 - Atherosclerotic heart disease of [place] coronary artery without angina pectoris Qualifiers: Coronary Disease-Associated Artery/Lesion type: [place] artery [place] vs. transplanted heart: [place] heart Associated angina: without angina Qualified Code(s): I25.10 - Atherosclerotic heart disease of [place] coronary artery without angina pectoris Plan: Control the cholesterol, weight, blood pressure, diabetes continue with aspirin (6) GERD (gastroesophageal reflux disease): Code(s): K21.9 - Gastro-esophageal reflux disease without esophagitis Qualifiers: Esophagitis presence: without esophagitis Qualified Code(s): K21.9 - Gastro-esophageal reflux disease without esophagitis Plan: Avoid the foods that causes that usually spicy foods, tomato products, juices, coffee, soda and foods that your sensitive to. After eating do not lie down, allow 3-4 hours before in lie down. And keep the head of bed above 30 degrees to avoid the acid from going up. (7) Constipation: Code(s): K59.00 - Constipation, unspecified (8) Left-sided back pain: Code(s): M54.9 - Dorsalgia, unspecified Medications: New sennosides-docusate sodium 8.6-50 mg (Senna Plus) 2 tab-caps (2 x 8.6-50 mg) PO BEDTIME 60 tabs 3RF K59.00 - Constipation, unspecified cyclobenzaprine 5 mg PO TID PRN 30 tabs 0RF muscle spasm M54.9 - Dorsalgia, unspecified Changed From hydralazine 25 mg PO Q6H 90 days 360 tabs 2RF I10 - Essential (primary) hypertension To hydralazine 25 mg PO TID 90 days 270 tabs 2RF I10 - Essential (primary) hypertension Refilled rosuvastatin 40 mg PO DAILY 90 tabs 2RF metformin 1,000 mg PO BID 180 tabs 3RF E11.65 - Type 2 diabetes mellitus with hyperglycemia lisinopril 40 mg PO DAILY 90 days 90 tabs 3RF I10 - Essential (primary) hypertension omeprazole 20 mg PO DAILY 90 caps 0RF R10.13 - Epigastric pain Coding Level of Care Code Est Pt Level 4 (82520) Complex EM visit Add On G2211 Diagnoses Type 2 diabetes mellitus with hyperglycemia, without long-term current use of insulin E11.65 Diabetes mellitus penitentiary insulin use: without long term care pharmacist use History of breast cancer Z85.3 Essential hypertension I10 Hypertension type: essential hypertension Hypercholesterolemia E78.00 Coronary artery disease involving [place] coronary artery of [place] heart without angina pectoris I25.10 Coronary Disease-Associated Artery/Lesion type: [place] artery [place] vs. transplanted heart: [place] heart Associated angina: without angina Gastroesophageal reflux disease without esophagitis K21.9 Esophagitis presence: without esophagitis Constipation K59.00 Left-sided back pain M54.9
[2024-02-06 10:21] VITALS: BP 152/78; PULSE 55; O2SAT 96; BMI 27.3
== END 2024-02-06 11:18 | disposition home or self-care (01) ==
PROVIDERS: PCP Internal Medicine; Visit Provider Internal Medicine
DX: E11.65 Type 2 diabetes mellitus with hyperglycemia (principal); Z85.3 Personal history of malignant neoplasm of breast; I10 Essential (primary) hypertension; E78.00 Pure hypercholesterolemia, unspecified; I25.10 Atherosclerotic heart disease of native coronary artery without angina pectoris; K21.9 Gastro-esophageal reflux disease without esophagitis; K59.00 Constipation, unspecified; M54.9 Dorsalgia, unspecified

== ENCOUNTER → 2024-02-06 10:13 | Outpatient (BNVA) | payer MEDICARE, SELFPAY | PROVIDERS: PCP Internal Medicine; Visit Provider Internal Medicine | DX: E11.65 Type 2 diabetes mellitus with hyperglycemia (principal); I10 Essential (primary) hypertension; E78.00 Pure hypercholesterolemia, unspecified; I25.10 Atherosclerotic heart disease of native coronary artery without angina pectoris; K21.9 Gastro-esophageal reflux disease without esophagitis; M54.9 Dorsalgia, unspecified; K59.00 Constipation, unspecified; Z85.3 Personal history of malignant neoplasm of breast | CPT/HCPCS: 96127; 99212 ==

== ENCOUNTER → 2024-02-23 10:22 | Outpatient (BNVA) | payer MEDICARE, SELFPAY | PROVIDERS: PCP Internal Medicine ==

== ENCOUNTER 2024-05-31 09:53 | Outpatient (AMB) | payer MEDICARE, SELFPAY ==
[2024-05-31 10:06] VITALS: BP 162/82; PULSE 72; O2SAT 98; BMI 27.9
--- NOTE | 2024-05-31 10:06 | A.OFFPC_ITS ---
Vital Signs 05/31/24 10:06 Height 5 ft 6 in Weight 173 lb BMI 27.9 BP 162/82 H Blood Pressure Location Lt brachial Position Sitting Pulse 72 Pulse Source Pulse Oximeter Pulse Oximetry (%) 98 Oxygen Delivery Method Room Air Intake Visit Reasons: DM , HTN Allergies hydrochlorothiazide Allergy (Unknown, Verified 05/31/24 10:57) unknown amlodipine Adverse Reaction (Intermediate, Verified 05/31/24 10:57) leg swelling Tobacco use date assessed: 05/31/24 Fall risk assessment: No Falls in past year Last assessed Fall Risk: 05/31/24 Dental Screening Dental Screen Date: 05/31/24 Did you have a dental visit in the last 12 months?: Yes Did you have a dental problem in the last 6 months where you did not have access to dental care?: No Was dental information given to patient?: Patient has dentist HPI DM , HTN HPI Details The patient is a 78-year-old female presenting with concerns regarding blood pressure, glucose management, and constipation. She has a history of essential hypertension for which she is currently on medication. Despite treatment, her blood pressure has been difficult to control. The patient's blood glucose level was recently recorded at 7.3% on HbA1c, indicating suboptimal control of her type 2 diabetes mellitus. Previously, her diabetes was managed with Metformin alone; however, there has been an increase in glucose levels prompting a need for additional medication. She has a history of constipation, sometimes going five days without a bowel movement despite nightly medication. Previous attempts with laxatives like Miralax weren't received well by the patient due to her dislike for the powdered form. [facility] Medical History (Updated 02/06/24 @ 11:11 by Kathrin Lopez MD) Subdural hematoma Type 2 diabetes mellitus with hyperglycemia History of breast cancer GERD (gastroesophageal reflux disease) Hypertension Hypercholesterolemia Coronary artery disease Surgical History H/O colonoscopy History of left mastectomy History of cholecystectomy History of tonsillectomy Family History Father Past heart attack Hypertension Mother Throat cancer Social History Household Members: Children Housing: House Are you a primary home health care social worker to a significant other at home: No Do you presently have visiting nurse or other home services: No Alcohol intake: former Patient Tobacco Use Status: Never used Tobacco Tobacco use type: Cigarette e-Cigarette/Vaping Use: Never Used Second Hand Smoke Exposure: No service: No Current occupational status: retired Cognitive needs: No Hearing needs: No Vision needs: Yes Questionnaire PHQ-9 Over the last 2 weeks, how often have you been bothered by any of the following problems? 1. Little interest or pleasure in doing things: not at all 2. Feeling down, depressed, or hopeless: not at all 3. Trouble falling or staying asleep, or sleeping too much: not at all 4. Feeling tired or having little energy: not at all 5. Poor appetite or overeating: not at all 6. Feeling bad about yourself - or that you are a failure or have let yourself or your family down: not at all 7. Trouble concentrating on things, such as reading the newspaper or watching television: not at all 8. Moving or speaking so slowly that other people could have noticed. Or the opposite - being so fidgety or restless that you have been moving around a lot more than usual: not at all 9. Thoughts that you would be better off or of hurting yourself in some way: not at all Total score: 0 Depression Screening Interpretation: Negative Depression Screening Done: Yes Source: Developed by Drs. Danie Musa, Janessa Hassan, Miguel Ángel Xavier and colleagues, with an educational jocelyn from [employer]. Thrive Questionnaire Date Thrive assessed: 05/31/24 I am a: Patient What is your living situation today?: I have a steady place to live Within the past 12 months, did the food you bought not last and you didn't have the money to get more?: Never true Within the past 12 months, did you worry whether your food would run out before you got money to buy more?: Never true Do you have trouble paying for medicines?: No Do you have trouble getting transportation to medical appointments?: No Do you have trouble paying your heating and electricity bill?: No Do you have trouble taking care of your child, family member or friend?: No Do you have trouble with day-to-day activities such as bathing, preparing meals, shopping, managing finances, etc.?: No Are you currently unemployed and looking for a job?: No Are you interested in more education?: No Currently or been in a relationship where the following occur: No concerns reported THRIVE Score: 0 AUDIT C Alcohol Use Questionnaire (AUDIT-C) 1. How often do you have a drink containing alcohol?: Monthly or less 2. How many drinks containing alcohol do you have on a typical day when you are drinking?: 1 or 2 3. How often do you have six or more drinks on one occasion?: Never Total Score: 1 PAULA-7 AMB Questionnaire PAULA-7 Date PAULA - 7 assessed: 05/31/24 Feeling nervous, anxious, or on edge: 0 = Not at all Not being able to stop or control worryin = Not at all Worrying too much about different things: 0 = Not at all Trouble relaxin = Not at all Being so restless that it is hard to sit still: 0 = Not at all Becoming easily annoyed or irritable: 0 = Not at all Feeling afraid as if something awful might happen: 0 = Not at all Total PAULA-7 score (0-4 normal; 5-9 mild; 10-14 moderate; 15-21 severe): 0 Source: Developed by Drs. Danie Musa, Janessa Hassan, Miguel Ángel Xavier and colleagues, with an educational jocelyn from [employer]. Physical exam (Primary Care) Vital Signs: Last Vital Signs Pulse 72 05/31/24 10:06 BP 162/82 H 05/31/24 10:06 Pulse Ox 98 05/31/24 10:06 Oxygen Delivery Method Room Air 05/31/24 10:06 BMI result Body Mass Index 27.9 Tobacco/Smoking Status: Tobacco use Status Tobacco use date assessed 05/31/24 05/31/24 10:09 Patient Tobacco Use Status Never used Tobacco 05/31/24 10:09 Tobacco use type Cigarette 05/31/24 10:09 e-Cigarette/Vaping Use Never Used 05/31/24 10:09 PHQ-9: PHQ-9 Score PHQ-9: Total score 0 05/31/24 11:42 Depression Screening Interpretation: Negative Thrive Assessment: Date of Thrive Assessment Date Thrive assessed 05/31/24 05/31/24 10:09 Currently or been in a relationship where the following occur: No concerns reported Const General: alert; No acute distress Eyes Conjunctivae: conjunctivae normal Resp Auscultation: clear to auscultation bilaterally Cardio Rate: regular rate Rhythm: regular rhythm GI Inspection: Yes normal to inspection Extrem General: Yes normal to inspection and No edema Results AMB Hemoglobin A1c AMB Hemoglobin A1c 7.3 % Last Edit by Nancy Marlow CMA on 05/31/24 11 :18 Results Reviewed Results Reviewed: Laboratory Last Values Hgb A1c (Clinic) 7.3 % (4.0-6.0) H 05/31/24 10:59 Coding Level of Care Code Est Pt Level 4 (04736) Complex EM visit Add On G2211 Diagnoses Type 2 diabetes mellitus with hyperglycemia, without long-term current use of insulin E11.65 Diabetes mellitus manager terminal insulin use: without manager terminal use Essential hypertension I10 Hypertension type: essential hypertension Hypercholesterolemia E78.00 Coronary artery disease involving [place] coronary artery of [place] heart without angina pectoris I25.10 Associated angina: without angina Coronary Disease-Associated Artery/Lesion type: [place] artery [place] vs. transplanted heart: [place] heart History of breast cancer Z85.3 Gastroesophageal reflux disease without esophagitis K21.9 Esophagitis presence: without esophagitis Assessment & Plan Assessment & Plan (1) Type 2 diabetes mellitus with hyperglycemia: Code(s): E11.65 - Type 2 diabetes mellitus with hyperglycemia Category: Medical Qualifiers: Diabetes mellitus manager terminal insulin use: without manager terminal use Qualified Code(s): E11.65 - Type 2 diabetes mellitus with hyperglycemia Plan: Decrease the amount of carbohydrate intake, pasta, bread, rice and potatoes are all sugar and that is aside from all the sweet stuff, remember that fruits are good but they are Sweet also. (2) Hypertension: Code(s): I10 - Essential (primary) hypertension Category: Medical Qualifiers: Hypertension type: essential hypertension Qualified Code(s): I10 - Essential (primary) hypertension Plan: Continue with blood pressure medication. Decrease salt intake and exercise advised to continue with lisinopril 40 mg once a day but increase hydralazine to 50 mg 3 times a day. (3) Hypercholesterolemia: Code(s): E78.00 - Pure hypercholesterolemia, unspecified Category: Medical Plan: Avoid fried foods, chicken skin, eggs, butter margarine, pastries and meat. Be it pork or beef they have a lot of cholesterol LDL of less than 70 and trig lyceride of less than 150 on rosuvastatin 40 mg once a day (4) Coronary artery disease: Code(s): I25.10 - Atherosclerotic heart disease of [place] coronary artery without angina pectoris Category: Medical Qualifiers: Associated angina: without angina Coronary Disease-Associated Artery/Lesion type: [place] artery [place] vs. transplanted heart: [place] heart Qualified Code(s): I25.10 - Atherosclerotic heart disease of [place] coronary artery without angina pectoris Plan: Control the cholesterol, weight, blood pressure, diabetes continue with aspirin 81 mg once a day (5) History of breast cancer: Comment: 1999 with left mastectomy chemotherapy Dr. Thorpe Code(s): Z85.3 - Personal history of malignant neoplasm of breast Category: Medical Plan: Patient is up-to-date with mammogram as well as follows up with surgeon as well as Hematology-Oncology. (6) GERD (gastroesophageal reflux disease): Code(s): K21.9 - Gastro-esophageal reflux disease without esophagitis Category: Medical Qualifiers: Esophagitis presence: without esophagitis Qualified Code(s): K21.9 - Gastro-esophageal reflux disease without esophagitis Plan: Avoid the foods that causes that usually spicy foods, tomato products, juices, coffee, soda and foods that your sensitive to. After eating do not lie down, allow 3-4 hours before in lie down. And keep the head of bed above 30 degrees to avoid the acid from going up. Plan - Initiate Jardiance for Type 2 Diabetes Mellitus at a low dose to aid in glucose control, with instructions to report to the clinic if there are any issues with insurance coverage. - Increase dose of antihypertensive medication to improve blood pressure control, noting the difficulty experienced with previous regimens. - Introduce lactulose for constipation as an alternative to powdered laxatives, considering patient preferences. - Advise the patient on proper preventative measures during the flu season, including maintaining distance from individuals showing signs of illness. - Recommend a follow-up bone density test later in the year due to the previous normal result observed in February. - Address ongoing constipation using dietary interventions such as inclusion of prune juice and increased hydration. Orders: Orders AMB Hemoglobin A1c Today Z13.9 - Encounter for screening, unspecified Medications: New empagliflozin (Jardiance) 10 mg PO DAILY 30 tabs 0RF E11.65 - Type 2 diabetes mellitus with hyperglycemia polyethylene glycol 3350 (Miralax) 17 grams PO DAILY 100 ea 0RF K59.00 - Constipation, unspecified Changed From hydralazine 25 mg PO TID 90 days 270 tabs 2RF I10 - Essential (primary) hypertension To hydralazine 50 mg PO TID 270 tabs 2RF 90 days I10 - Essential (primary) hypertension
== END 2024-05-31 11:55 | disposition home or self-care (01) ==
PROVIDERS: PCP Internal Medicine; Visit Provider Internal Medicine
DX: E11.65 Type 2 diabetes mellitus with hyperglycemia (principal); I10 Essential (primary) hypertension; E78.00 Pure hypercholesterolemia, unspecified; I25.10 Atherosclerotic heart disease of native coronary artery without angina pectoris; Z85.3 Personal history of malignant neoplasm of breast; K21.9 Gastro-esophageal reflux disease without esophagitis; Z13.9 Encounter for screening, unspecified

== ENCOUNTER → 2024-05-31 09:53 | Outpatient (BNVA) | payer MEDICARE, SELFPAY | PROVIDERS: PCP Internal Medicine; Visit Provider Internal Medicine | DX: E11.65 Type 2 diabetes mellitus with hyperglycemia (principal); I10 Essential (primary) hypertension; E78.00 Pure hypercholesterolemia, unspecified; I25.10 Atherosclerotic heart disease of native coronary artery without angina pectoris; K21.9 Gastro-esophageal reflux disease without esophagitis; Z85.3 Personal history of malignant neoplasm of breast | CPT/HCPCS: 83036; 99212 ==

== ENCOUNTER 2024-09-06 09:54 | Outpatient (AMB) | payer MEDICARE, SELFPAY ==
[2024-09-06 10:08] VITALS: BP 172/82; PULSE 75; O2SAT 97; BMI 27.3
--- NOTE | 2024-09-06 10:08 | A.OFFPC_ITS ---
Vital Signs 09/06/24 10:08 Height 5 ft 6 in Weight 169 lb BMI 27.3 BP 172/82 H Blood Pressure Location Lt brachial Position Sitting Pulse 75 Pulse Source Pulse Oximeter Pulse Oximetry (%) 97 Oxygen Delivery Method Room Air Intake Visit Reasons: DM , HTN Allergies hydrochlorothiazide Allergy (Unknown, Verified 09/06/24 10:08) unknown amlodipine Adverse Reaction (Intermediate, Verified 09/06/24 10:08) leg swelling Medication List - Last Reconciled 09/06/24 by Kathrin Lopez MD aspirin (Adult Aspirin Regimen) 81 mg PO DAILY blood pressure monitor (Blood Pressure Kit) As directed blood sugar diagnostic ([place] [facility] Ultra Test strips) As directed check the blood sugar once a day blood-glucose meter As directed check the blood sugar once a day ONE TOUCH ULTRA 2 cholecalciferol (vitamin D3) (Vitamin D3) 125 mcg PO DAILY compr.stocking,thigh,reg,large As directed 20-30 mm hg compress.stocking,knee,reg,lrg As directed 20-30 mm HG cyanocobalamin (vitamin B-12) 1,000 mcg PO DAILY cyclobenzaprine 5 mg PO TID PRN fluticasone propionate 50 mcg/actuation 2 sprays intranasal DAILY hydralazine 50 mg PO TID 90 days lancets (OncoHoldingsTouch UltraSoft 2 Lancet) As directed once a day lisinopril 40 mg PO DAILY 90 days metformin 1,000 mg PO BID nifedipine ER 30 mg PO DAILY omeprazole 20 mg PO DAILY polyethylene glycol 3350 (Miralax) 17 grams PO DAILY rosuvastatin 40 mg PO DAILY sennosides-docusate sodium 8.6-50 mg (Senna Plus) 2 tab-caps (2 x 8.6-50 mg) PO BEDTIME sitagliptin phosphate (Januvia) 100 mg PO DAILY Tobacco use date assessed: 05/31/24 Fall risk assessment: No Falls in past year Last assessed Fall Risk: 09/06/24 Dental Screening Dental Screen Date: 05/31/24 [facility] Medical History (Updated 02/06/24 @ 11:11 by Kathrin Lopez MD) Subdural hematoma Type 2 diabetes mellitus with hyperglycemia History of breast cancer GERD (gastroesophageal reflux disease) Hypertension Hypercholesterolemia Coronary artery disease Surgical History H/O colonoscopy History of left mastectomy History of cholecystectomy History of tonsillectomy Family History Father Past heart attack Hypertension Mother Throat cancer Social History Household Members: Children Housing: House Are you a primary client care consultant to a significant other at home: No Do you presently have visiting nurse or other home services: No Alcohol intake: former Patient Tobacco Use Status: Never used Tobacco Tobacco use type: Cigarette e-Cigarette/Vaping Use: Never Used Second Hand Smoke Exposure: No service: No Current occupational status: retired Cognitive needs: No Hearing needs: No Vision needs: Yes Questionnaire PHQ-9 Over the last 2 weeks, how often have you been bothered by any of the following problems? 1. Little interest or pleasure in doing things: not at all 2. Feeling down, depressed, or hopeless: not at all 3. Trouble falling or staying asleep, or sleeping too much: not at all 4. Feeling tired or having little energy: not at all 5. Poor appetite or overeating: not at all 6. Feeling bad about yourself - or that you are a failure or have let yourself or your family down: not at all 7. Trouble concentrating on things, such as reading the newspaper or watching television: not at all 8. Moving or speaking so slowly that other people could have noticed. Or the opposite - being so fidgety or restless that you have been moving around a lot more than usual: not at all 9. Thoughts that you would be better off or of hurting yourself in some way: not at all Total score: 0 Depression Screening Interpretation: Negative Depression Screening Done: Yes Source: Developed by Drs. Danie Musa, Janessa Hassan, Miguel Ángel Xavier and colleagues, with an educational jocelyn from [employer]. Thrive Questionnaire Date Thrive assessed: 05/31/24 PAULA-7 AMB Questionnaire PAULA-7 Date PAULA - 7 assessed: 05/31/24 Source: Developed by Drs. Danie Musa, Janessa Hassan, Miguel Ángel Xavier and colleagues, with an educational jocelyn from [employer]. Physical exam (Primary Care) Vital Signs: Last Vital Signs Pulse 75 09/06/24 10:08 BP 172/82 H 09/06/24 10:08 Pulse Ox 97 09/06/24 10:08 Oxygen Delivery Method Room Air 09/06/24 10:08 BMI result Body Mass Index 27.3 Tobacco/Smoking Status: Tobacco use Status Tobacco use date assessed 05/31/24 09/06/24 10:09 Patient Tobacco Use Status Never used Tobacco 09/06/24 10:09 Tobacco use type Cigarette 09/06/24 10:09 e-Cigarette/Vaping Use Never Used 09/06/24 10:09 PHQ-9: PHQ-9 Score PHQ-9: Total score 0 09/06/24 10:34 Depression Screening Interpretation: Negative Thrive Assessment: Date of Thrive Assessment Date Thrive assessed 05/31/24 09/06/24 10:09 Const General: alert; No acute distress Eyes Conjunctivae: conjunctivae normal Resp Auscultation: clear to auscultation bilaterally Cardio Rate: regular rate Rhythm: regular rhythm GI Inspection: Yes normal to inspection Extrem General: Yes normal to inspection and No edema Results AMB Hemoglobin A1c AMB Hemoglobin A1c 7.1 % Last Edit by Nancy Marlow CMA on 09/06/24 10 :35 Results Reviewed Results Reviewed: Laboratory Last Values Hgb A1c (Clinic) 7.1 % (4.0-6.0) H 09/06/24 10:09 Coding Level of Care Code Est Pt Level 4 (18601) Complex EM visit Add On G2211 Diagnoses History of breast cancer Z85.3 Type 2 diabetes mellitus with hyperglycemia, without long-term current use of insulin E11.65 Diabetes mellitus intermediate teacher insulin use: without intermediate use Essential hypertension I10 Hypertension type: essential hypertension Hypercholesterolemia E78.00 Coronary artery disease involving [place] coronary artery of [place] heart without angina pectoris I25.10 Associated angina: without angina Coronary Disease-Associated Artery/Lesion type: [place] artery [place] vs. transplanted heart: [place] heart Gastroesophageal reflux disease without esophagitis K21.9 Esophagitis presence: without esophagitis Acute congestive heart failure, unspecified heart failure type I50.9 Heart failure chronicity: acute Heart failure type: unspecified Assessment & Plan Assessment & Plan (1) History of breast cancer: Comment: 1999 with left mastectomy chemotherapy Dr. Thorpe Code(s): Z85.3 - Personal history of malignant neoplasm of breast Category: Medical Plan: Patient is reminded about mammogram. Patient continue to follow-up with Hematology-Oncology (2) Type 2 diabetes mellitus with hyperglycemia: Code(s): E11.65 - Type 2 diabetes mellitus with hyperglycemia Category: Medical Qualifiers: Diabetes mellitus intermediate teacher insulin use: without intermediate use Qualified Code(s): E11.65 - Type 2 diabetes mellitus with hyperglycemia Plan: Decrease the amount of carbohydrate intake, pasta, bread, rice and potatoes are all sugar and that is aside from all the sweet stuff, remember that fruits are good but they are Sweet also. Hemoglobin A1c goal of less than 7.0. Patient is on metformin a 1000 mg twice a day Januvia 100 mg once (3) Hypertension: Code(s): I10 - Essential (primary) hypertension Category: Medical Qualifiers: Hypertension type: essential hypertension Qualified Code(s): I10 - Essential (primary) hypertension Plan: Continue with blood pressure medication. Decrease salt intake and exercise patient takes lisinopril 40 mg once a day hydralazine 50 mg 3 times a day patient had a problem with amlodipine and hydrochlorothiazide (4) Hypercholesterolemia: Code(s): E78.00 - Pure hypercholesterolemia, unspecified Category: Medical Plan: Avoid fried foods, chicken skin, eggs, butter margarine, pastries and meat. Be it pork or beef they have a lot of cholesterol LDL goal of less than 70 and triglyceride of less than 150 patient is on rosuvastatin 40 mg once a day Heike last blood work (5) Coronary artery disease: Code(s): I25.10 - Atherosclerotic heart disease of [place] coronary artery without angina pectoris Category: Medical Qualifiers: Associated angina: without angina Coronary Disease-Associated Artery/Lesion type: [place] artery [place] vs. transplanted heart: [place] heart Qualified Code(s): I25.10 - Atherosclerotic heart disease of [place] coronary artery without angina pectoris Plan: Control the cholesterol, weight, blood pressure, diabetes mellitus. Patient on aspirin 81 mg once a day (6) GERD (gastroesophageal reflux disease): Code(s): K21.9 - Gastro-esophageal reflux disease without esophagitis Category: Medical Qualifiers: Esophagitis presence: without esophagitis Qualified Code(s): K21.9 - Gastro-esophageal reflux disease without esophagitis Plan: Avoid the foods that causes that usually spicy foods, tomato products, juices, coffee, soda and foods that your sensitive to. After eating do not lie down, allow 3-4 hours before in lie down. And keep the head of bed above 30 degrees to avoid the acid from going up. (7) CHF (congestive heart failure): Comment: Echocardiogram EF 55-60% normal LV Code(s): I50.9 - Heart failure, unspecified Category: Medical Qualifiers: Heart failure chronicity: acute Heart failure type: unspecified Qualified Code(s): I50.9 - Heart failure, unspecified Plan: Continue with hydralazine and lisinopril. Weigh daily Plan History of Present Illness The patient is a 78-year-old female presenting for follow-up concerning chronic conditions management. She experiences ongoing challenges in controlling her blood pressure despite previous antihypertensive treatments. Her current regimen includes lisinopril and hydralazine, and there are considerations to adjust her treatment due to persistent hypertension. Her diabetes is managed with metformin and Januvia, reflecting a need to maintain her Hemoglobin A1c below 7.0%. Current cholesterol management is effective, with recent LDL levels at 66 mg/dL, compliant with her target guidelines. Health Maintenance - Mammogram is due. - Bone density assessment is due. - Patient reminded about the benefits of shingles vaccination despite not being mandatory. - Continues follow-ups with hematology and oncology. Social History - Unspecified compliance with regular physical activity. - No home blood pressure monitoring due to lack of equipment. Review of Systems - Cardiovascular: Reports difficulty maintaining blood pressure control. - Endocrine: Denies new symptoms related to diabetes management. - Gastrointestinal: Reports adherence to reflux management; no recent issues noted. - Hematologic/Oncologic: Follows up regularly with specialists. Physical Exam Results - Labs: Normal blood count and electrolytes; fasting blood sugars at 115 mg/dL, Hemoglobin A1c at 7.1% (July 2024), cholesterol test with LDL at 66 mg/dL (January), normal renal function, history of proteinuria. Plan 1. 0%. Ongoing use of rosuvastatin will support her current cholesterol levels, aiming for LDLs below 70 mg/dL. Regular follow-up with her hematology and oncology specialists is advised as part of comprehensive health monitoring. We discussed possible risk factors and interventions related to her proteinuria and addressed her adherence concerns, specifically with regular blood pressure and glucose monitoring, where equipment availability was a noted barrier.: Patient was informed and verbally consented to the use of an ambient scribe for clinic note documentation during this visit. Discussion Notes Today, we discussed the adjustments in the patient?s antihypertensive therapy to achieve better blood pressure control, considering previous medication tolerability issues. Emphasized was the continuity of current diabetes management to maintain Hemoglobin A1c below 7.0%. The patient was informed of the significance of continued lipid-lowering therapy due to her coronary artery disease history. I thoroughly explained possible side effects of the new hypertension medication, advising her on signs of possible intolerance. We considered a potential nephrology consult given her persistent hypertension, with no immediate renal function concerns noted. I highlighted the benefits of staying compliant with hematology and oncology appointments, given her cancer history. The patient was briefed on the preventive value of receiving the shingles vaccine. Patient Instructions - Continue prescribed medications including lisinopril, hydralazine, metformin, and rosuvastatin as directed. - Obtain a home blood pressure monitor for regular readings. - Schedule and complete mammography and bone density tests. - Maintain diabetes management with dietary modifications and regular monitoring. - Contact the office for outstanding concerns about test results or any new symptoms. - Make an informed decision about receiving the shingles vaccine. - Follow up in three months for reassessment. Orders: Orders AMB Hemoglobin A1c Today Z13.9 - Encounter for screening, unspecified Medications: New nifedipine ER 30 mg PO DAILY 30 tabs 2RF I10 - Essential (primary) hypertension Refilled lisinopril 40 mg PO DAILY 90 tabs 3RF 90 days I10 - Essential (primary) hypertension rosuvastatin 40 mg PO DAILY 90 tabs 2RF hydralazine 50 mg PO TID 270 tabs 2RF 90 days I10 - Essential (primary) hypertension
--- OUTSIDE RECORDS SUMMARY | 2024-09-06 11:06 | XMS_ITS ---
Author Organization [facility] chauncey [place] Address [address] [place] [address] Care Team Providers Care Reservationist Name Role Phone Kathrin Lopez Primary Care Provider Didier ObregonJuana Unavailable [phone] Allergies No Known Allergies REASON FOR VISIT At Risk Footcare, Painful nail(s) aggrevated by shoes and causing difficulty standing/walking. Medications Medication SIG (Take, Route, Frequency, Duration) Notes Start Date End Date Status Linzess 145 MCG 1 capsule at least 3 0 minutes before the first meal of the day on an empty stomach Orally Once a day for 30 day(s) Not-Taking NexIUM 40 MG 1 capsule Orally Onc e a day for 30 day(s) Not-Taking metFORMIN HCl 1000 MG 1 tablet with a me al Orally Once a day for 30 days Active Lisinopril 40 MG 1 tablet Orally Once a day for 30 day(s) Active amLODIPine Besylate 5 MG 1 tablet Orally Once a day for 30 day(s) Not-Taking Vitamin B12 Active Omeprazole 20 MG 1 capsule 30 minutes before morning meal Orally Once a day Active hydrALAZINE HCl 25 MG 1 tablet with food Orally Three times a day Active Rosuvastatin Calcium 40 MG 1 tablet Orally Once a day for 30 days Active Social History Tobacco Use: Social History Observation Description Date Details (start date - stop date) Never Smoker NA - NA Tobacco Use/Smoking Question Answer Notes Are you a: nonsmoker Tobacco use other than smoking: Question Answer Notes Are you an other tobacco user? No Vital Signs Height 5ft 6in in 01/26/2024 Weight 170 lbs 01/26/2024 BMI 27.44 kg/m2 01/26/2024 Procedures Procedure Date Ordered Date Performed Result Body Sit e 43692-VKNYBTM NAIL, 6 OR MORE 01/26/2024 N/A 26291-INRN SKIN LESIONS, OVER 4 01/26/2024 N/A Encounters Encounter Location Date Provider Diagnosis [facility] [address] [address] 01/26/2024 Juana Obregon Type 2 diabetes mellitus with diabetic polyneuropathy E11.42 and Tinea unguium B35.1 Assessments Encounter Date Diagnosis (ICD Code) Assessment Notes Treatment Notes Treatment Clinical Notes Section Notes 01/26/2024 Type 2 diabetes mellitus with diabetic polyneuropathy (ICD-10 - E11.42) 01/26/2024 Tinea unguium (ICD-10 - B35.1) Plan Of Treatment Pending Test Test Name Order Date 67588-RRABGFK NAIL, 6 OR MORE 01/26/2024 43500-TASW SKIN LESIONS, OVER 4 01/26/20 24 Next Appt Details Follow Up: prn, Reason: Provider Name:Juana Obregon , 09/13/2024 09:00:00 AM, [address] [place] [address], [id number], Procedure Notes * Category Sub-Category Detail Notes Debride Nail 6-10 Nail debridement Performance o f this nail treatment by a nonprofessional would put this patients foot and overall health at risk. Therefore, nail debridement was performed extensively to reduce/remove overall nail length, girth, thickness, subungual debris, and necrotic tissue, by manual and/or electrical means through the use of a nail nipper and/or dremel-type shear grinder operator, to a more viable healthy nail plate or bed tissue 6-10. Silver nitrate used for any petechial bleeding as necessary. Definitive antifungal treatment options have been reviewed and discussed with the patient. The patient chooses, no pharmaceutical tx - 06816 Keratoma Treatment Parring or Cutting o f Benign Hyperkeratotic Lesion(s) 55805 ( >4 Lesions) - The Benign hyperkeratotic lesions, as described above were pared, and/or cut utilizing a sterile #15 blade, tissue nippers, and/or dremel Progress Notes * Elza LORENZO EDOB: [birth year] (78 yo F)Acc No.[id number]:01/26/2024 Progress Note Patient:Elza JONES Provider:?Juana Obregon DPM :1945???Age:78 Y???Sex:Female D ate:01/26/2024 Address:[address] [place] [address], [address] [id number] Pcp:Kathrin Lopez Subjective: * Chief Complaints: * ???At Risk Footcare Painful nail(s) aggrevated by shoes and causing difficulty standing/walking. * HPI: ???At Risk footcare:?Pt States Last PCP Visit:?Date?10/07/2023 ???Painful Nails:?Pt States Last PCP Visit:?Date:?10/07/2023 * Medical History:? * Surgical History:?Breast Can cer Surgery 06/23/1999 * Hospitalization/Major Diagno stic Procedure:?Denies Past Hospitalization * Family History:?Mother: unkn own.?Father: unknown.? Shady Valadez - Heart attack. * Social History:?Tobacco Use:?Tobacco Use/Smoking?Are you a:?nonsmoker ?Tobacco use other than smoking?Are you an other tobacco user??No ???Miscellaneous:?Caffeine: yes, 1-2 cups per day. ?Children: yes, 2. ?Exercise: yes, walking. ?Marital status: . ?Occupation: Retired. * Medications:?TakingVitamin B 12 Omeprazole 20 MG Capsule Delayed Release 1 capsule 30 minutes before morning meal Orally Once a day hydrALAZINE HCl 25 MG Tablet 1 tablet with food Orally Three times a day Rosuvastatin Calcium 40 MG Tablet 1 tablet Orally Once a day metFORMIN HCl 1000 MG Tablet 1 tablet with a meal Orally Once a day Lisinopril 40 MG Tablet 1 tablet Orally Once a day Taking Vitamin B12 Taking Omeprazole 20 MG Capsule Delayed Release 1 capsule 30 minutes before morning meal Orally Once a day Taking hydrALAZINE HCl 25 MG Tablet 1 tablet with food Orally Three times a day Taking Rosuvastatin Calcium 40 MG Tablet 1 tablet Orally Once a day Taking metFORMIN HCl 1000 MG Tablet 1 tablet with a meal Orally Once a day Taking Lisinopril 40 MG Tablet 1 tablet Orally Once a day Not-Taking/PRNamLODIPine Besylate 5 MG Tablet 1 tablet Orally Once a day Linzess 145 MCG Capsule 1 capsule at least 30 minutes before the first meal of the day on an empty stomach Orally Once a day NexIUM 40 MG Capsule Delayed Release 1 capsule Orally Once a day Medication List reviewed and reconciled with the patientNot-Taking/PRN amLODIPine Besylate 5 MG Tablet 1 tablet Orally Once a day Not-Taking/PRN Linzess 145 MCG Capsule 1 capsule at least 30 minutes before the first meal of the day on an empty stomach Orally Once a day Not-Taking/PRN NexIUM 40 MG Capsule Delayed Release 1 capsule Orally Once a day Medication List reviewed and reconciled with the patient * Allergies:?N.K.D.A.yes[Aller gies Verified] Objective: * Vitals:?Ht: 5ft 6in, Wt: 170 , BMI: 27.44, Shoe size: 9, BS: not taken, Ht-cm: 167.64 cm, Wt-k.11 kg. * ???Past Orders: ???Lab:HEMOGLOBIN A1C (GLYCO HEMOGLOBIN) (Order Date - 06/09/2023) (Collection Date & Time - 06/09/2023 09:12 AM) ? Value Reference Range ?HEMOGLOBIN A1C % (HH) 6.5 * Examination: ???Ophthalmology Referral: ?DIABETES EYE EXAM?Diabetic Retinopathy Screening:?No ?Findings of Diabetic Eye Exam:?no retinopathy?Neurological: ?SENSORY:?Neurological exam demonstrates, reduced light touch sensation, reduced sharp/dull pin prick discrimination , reduced vibration sensation, 5.07 monofilament test performed at plantar aspects of 5 varied sites per foot shows sensation, absent, at Forefoot, B/L , Pt relates ,cont.?anesthesia.?Vascular: ?DP PULSES (B):?2/4, B/L.?PT PULSES (B):?2/4, B/L.?CAPILLARY FILL TIME:?immediate, all digits, B/L.?Nails: ?NAILS are:? Elongated, overgrown, dystrophic, lytic, greater than 3mm thick, discolored and friable with crumbly malodorous subungual debris, with dull to no pain on palpation due to neuropathy,, 1-5 B/L.?Dermatologic: ?SKIN FINDINGS:??Skin exam reveals Keratotic lesion(s) located at, Heel(s), B/L , SUB 5th , B/L ,SUB MTH (s) , 2 , Right.?General Examination: ?FOOT EXAM:?Lower Extremity Neurological Exam performed:?Yes ?Visual exam of foot performed:?Yes ?Date?01/26/2024 ?Sensory testing performed:?sensations diminished ?Sensory and motor testing performed:?sensations diminished ?Pedal pulse taking performed:?2+??? Assessment: * Assessment: 1.?Tinea unguium - B35.1???2 .?Type 2 diabetes mellitus with diabetic polyneuropathy - E11.42 (Primary)??? Plan: * Treatment: 2.?Tinea unguium?Procedure: 82853-IGNNKOK NAIL, 6 OR MORE * Procedures:?Debride Nail 6-10:?Nail debridement?Performance of this nail treatment by a nonprofessional would put this patients foot and overall health at risk. Therefore, nail debridement was performed extensively to reduce/remove overall nail length, girth, thickness, subungual debris, and necrotic tissue, by manual and/or electrical means through the use of a nail nipper and/or dremel-type shear grinder operator, to a more viable healthy nail plate or bed tissue 6-10. Silver nitrate used for any petechial bleeding as necessary. Definitive antifungal treatment options have been reviewed and discussed with the patient. The patient chooses, no pharmaceutical tx - 78003.?Keratoma Treatment:?Parring or Cutting of Benign Hyperkeratotic Lesion(s)?26725 ( >4 Lesions) - The Benign hyperkeratotic lesions, as described above were pared, and/or cut utilizing a sterile #15 blade, tissue nippers, and/or dremel.? * Procedure Codes:?45062 DEBRI DE NAIL, 6 OR MORE, Modifiers: XS 18495 TRIM SKIN LESIONS, OVER 4, Modifiers: XS * Follow Up:?prn * Images: * Sign off status: Completed true * Provider:?Juana Obregon DPM Date:?2023 Generated for Penelope frances/Jaskaran/eTransmitting on:?09/06/2024 11:06 AM EDT History and Physical Notes * HPI (History of Present Illness) Category Sub-Category Detail Notes Category Not es Painful Nails Pt States Last PCP Visit: Date:: 10/07/2023 At Risk footcare Pt States Last PCP Visit: Date: Examination Category Sub-Category Detail Notes Category Not es Neurological SENSORY: Neurological exa m demonstrates, reduced light touch sensation, reduced sharp/dull pin prick discrimination , reduced vibration sensation, 5.07 monofilament test performed at plantar aspects of 5 varied sites per foot shows sensation, absent, at Forefoot, B/L , Pt relates ,cont. anesthesia Dermatologic SKIN FINDINGS: Skin exam reveal s Keratotic lesion(s) located at, Heel(s), B/L , SUB 5th , B/L ,SUB MTH (s) , 2 , Right General Examination FOOT EXAM: Lower Extrem ity Neurological Exam performed:: Yes Visual exam of foot performed:: Yes Date: 01/26/2024 Sensory testing performed:: sensations d iminished Sensory and motor testing performed:: se nsations diminished Pedal pulse taking performed:: 2+ Ophthalmology Referral DIABETES EYE EXAM Diabetic Retinopa thy Screening:: No Findings of Diabetic Eye Exam:: no retin opathy Vascular DP PULSES (B): 2/4, B/L PT PULSES (B): 2/4, B/L CAPILLARY FILL TIME: immediate, all digi ts, B/L Nails NAILS are: Elongated, overg rown, dystrophic, lytic, greater than 3mm thick, discolored and friable with crumbly malodorous subungual debris, with dull to no pain on palpation due to neuropathy,, 1-5 B/L
--- OUTSIDE RECORDS SUMMARY | 2024-09-06 11:06 | XMS_ITS | Patient Health Record ---
Author Organization [facility] Nicolasa chauncey [place] Address [address] [place] [address] Care Team Providers Care Geek Squad Manager Name Role Phone Kathrin Lopez Primary Care Provider Didier ObregonJolantae Unavailable [phone] Allergies No Known Allergies Reason For Referral No Information Medications Medication SIG (Take, Route, Frequency, Duration) Notes Start Date End Date Status Omeprazole 20 MG 1 capsule 30 minutes before morning meal Orally Once a day Active hydrALAZINE HCl 25 MG 1 tablet with food Orally Three times a day Active NexIUM 40 MG 1 capsule Orally Onc e a day for 30 day(s) Not-Taking Vitamin B12 Active metFORMIN HCl 1000 MG 1 tablet with a me al Orally Once a day for 30 days Active Lisinopril 40 MG 1 tablet Orally Once a day for 30 day(s) Active amLODIPine Besylate 5 MG 1 tablet Orally Once a day for 30 day(s) Not-Taking Linzess 145 MCG 1 capsule at least 3 0 minutes before the first meal of the day on an empty stomach Orally Once a day for 30 day(s) Not-Taking Rosuvastatin Calcium 40 MG 1 tablet Orally Once a day for 30 days Active Immunizations Vaccine Route Administration Date Status Comme nts COVID-19 Moderna Vaccine Unknown 03/06/2021 Administered 1st:06/24/2020 2nd:07/22/2021 Influenza Unknown 01/08/2019 Administered Influenza Unknown 01/07/2023 Administered Social History Tobacco Use: Social History Observation Description Date Details (start date - stop date) Never Smoker NA - NA Tobacco Use/Smoking Question Answer Notes Are you a: nonsmoker Alcohol Screen Question Answer Notes Did you have a drink contain ing alcohol in the past year? Yes How often did you have a dri nk containing alcohol in the past year? Monthly or less (1 point) Points 1 Interpretation Negative Tobacco use other than smoking: Question Answer Notes Are you an other tobacco user? No Problems Problem Type SNOMED Code ICD Code Onset Dates Problem Status W/U Status Risk Notes Problem Acquired hammer toe of right foot (8993173637878883 ) Other hammer toe(s) (acquired), right foot (M20.41) Active confirmed Problem Acquired hammer toe of left foot (6436795632612328 ) Other hammer toe(s) (acquired), left foot (M20.42) Active confirmed Problem Polyneuropathy due to type 2 diabetes mellitus (829981820) Type 2 diabetes mellitus with diabetic polyneuropathy (E11.42) Active confirmed Vital Signs Blood pressure diastolic 80 mm Hg 05/17/2024 Height 5ft 6in in 05/17/2024 Blood pressure systolic 120 mm Hg 05/17/2024 Weight 176 lbs 05/17/2024 BMI 28.4 kg/m2 05/17/2024 Procedures Procedure Date Ordered Date Performed Result Body Sit e 68736-HJRAUXV NAIL, 6 OR MORE 10/06/2023 N/A 08766-Gumxddne Plate 10/06/2023 N/A 84264-Tfrmkaxn Plate Each Additional 10/06/2023 N/A 99984-VVDL SKIN LESIONS, OVER 4 10/06/2023 N/A 44640-KKAYWOU NAIL, 6 OR MORE 01/26/2024 N/A 30744-BOTP SKIN LESIONS, OVER 4 01/26/2024 N/A 97964-FWIGJKG NAIL, 6 OR MORE 05/17/2024 N/A 37387-PLRK SKIN LESIONS, OVER 4 05/17/2024 N/A Encounters Encounter Location Date Provider Diagnosis [facility] [address] 10/06/2023 Juana Black Type 2 diabetes mellitus with diabetic polyneuropathy E11.42 ; Tinea unguium B35.1 and Ingrown nail L60.[address] [address] 01/26/2024 Juana Black Type 2 diabetes mellitus with diabetic polyneuropathy E11.42 and Tinea unguium B35.1 [facility] [place] [address] [place] [address] 05/17/2024 Juana Black Type 2 diabetes mellitus with diabetic polyneuropathy E11.42 and Tinea unguium B35.1 Assessments Encounter Date Diagnosis (ICD Code) Assessment Notes Treatment Notes Treatment Clinical Notes Section Notes 10/06/2023 Type 2 diabetes mellitus with diabetic polyneuropathy (ICD-10 - E11.42) 01/26/2024 Tinea unguium (ICD-10 - B35.1) 01/26/2024 Type 2 diabetes mellitus with diabetic polyneuropathy (ICD-10 - E11.42) 05/17/2024 Type 2 diabetes mellitus with diabetic polyneuropathy (ICD-10 - E11.42) 05/17/2024 Tinea unguium (ICD-10 - B35.1) 10/06/2023 Tinea unguium (ICD-10 - B35.1) 10/06/2023 Ingrown nail (ICD-10 - L60.0) Plan Of Treatment Pending Test Test Name Order Date 21150-BKLXJPP NAIL, 6 OR MORE 01/03/2020 80461-EBYAMOY NAIL, 6 OR MORE 08/03/2021 58737-GAOWVOU NAIL, 6 OR MORE 02/01/2022 64722-MNPBTMB NAIL, 6 OR MORE 08/02/2022 66545-UGDHHYW NAIL, 6 OR MORE 12/06/2022 93604-BOEVAYH NAIL, 6 OR MORE 03/17/2023 97723-SDOWDEU NAIL, 6 OR MORE 07/04/2023 37172-AUNKURP NAIL, 6 OR MORE 10/06/2023 39220-KJJPWCH NAIL, 6 OR MORE 01/26/2024 46386-HNHGWLV NAIL, 6 OR MORE 05/17/2024 73964-Gdtadsxi Plate 08/02/2022 79912-Wwgcociq Plate 10/06/2023 64963-Jxxhcpxl Plate Each Additional 36002-VBXI SKIN LESIONS, OVER 4 10/06/19 24 77949-ZGXS SKIN LESIONS, OVER 4 07/04/19 24 09900-SFOJ SKIN LESIONS, OVER 4 03/17/20 23 14636-SSYK SKIN LESIONS, OVER 4 12/07/19 23 06552-BNQQ SKIN LESIONS, OVER 4 08/03/19 23 18164-BORO SKIN LESIONS, OVER 4 05/17/19 25 04157-AIYT SKIN LESIONS, OVER 4 01/26/20 24 36495-FFJM SKIN LESIONS, 2 TO 4 02/02/20 22 44509-FVRN SKIN LESIONS, 2 TO 4 08/04/19 22 Next Appt Details Provider Name:Juana Obregon , 09/13/2024 09:00:00 AM, [address] [place], [address], Insurance Providers Payer Name Payer Address Payer Phone Subscriber Number Group Number Insured Name Patient Relationship to Insured Coverage Start Date Coverage End Date Medicare National Govt Sv[employer] [address] [place] [address] [id number] Elza Ryan Self - patient is the insured Medical (General) History Medical History History ICD Code Cancer Diabetic High blood pressure Surgical History Surgery Date(Month/Year) Breast Cancer Surgery 06/23/1999
--- OUTSIDE RECORDS SUMMARY | 2024-09-06 11:06 | XMS_ITS | Clinical Summary ---
Author Organization [employer] Address [address] [facility] [address] [place] [address] Care Team Providers Care Pharmacy Picking Technician Name Role Phone Unavailable Primary Care Provider Unavailabl e Encounters Date Type Department Care Team Description 07/31/2024 3:25 PM EDT Immunization [facility] [address] [place] [address] Encounter for immunization (Primary Dx) from Last 3 Months Immunizations Name Administration Dates Next Due Influenza, seasonal, injectable, preservative fr ee 01/25/2024 Pfizer Covid-19 Vaccine 12+ 07/31/2024, Social History Tobacco Use Types Packs/Day Years Used Date Smoking Tobacco: Never Assessed Comments Unknown Sex and Gender Information Value Date Recorded Sex Assigned at Female 01/25/2024 2:53 PM EDT Legal Sex Female 2:52 PM EDT Gender Identity Female 01/25/2024 2:53 PM EDT Sexual Orientation Official Use Only; I nformation not collected 01/25/2024 2:53 PM EDT Plan of Treatment Health Maintenance Due Date Last Done Comments Depression Screening 1945 SDOH Screening 1945 Alcohol/Substance Use Screening 1959 Tobacco Screening 1959 Hepatitis C Screening 09/11/1965 DTaP/Tdap/Td Vaccines (1 - Tdap) 09/11/1966 Pneumococcal Vaccine: 50+ Years (1 of 1 - PCV) 09/11/1997 Zoster Vaccines (1 of 2) 09/11/1997 RSV Patients and Patients Aged 60 years or older (1 - 1-dose 75+ series) 09/11/2022 Influenza Vaccine Completed 01/25/2024 COVID-19 Vaccine Completed 07/31/2024, 01/25/2024 HIB Vaccines Aged Out No longer eligi ble based on patient's age to complete this topic HPV Vaccines Aged Out No longer eligi ble based on patient's age to complete this topic Hepatitis A Vaccines Aged Out No long er eligible based on patient's age to complete this topic Hepatitis B Vaccines Aged Out No long er eligible based on patient's age to complete this topic IPV Vaccines Aged Out No longer eligi ble based on patient's age to complete this topic Meningococcal Vaccine Aged Out No jocelyn ryan eligible based on patient's age to complete this topic RSV under 20 months Aged Out No longe r eligible based on patient's age to complete this topic Rotavirus Vaccines Aged Out No longer eligible based on patient's age to complete this topic Insurance MEDICARE
--- OUTSIDE RECORDS SUMMARY | 2024-09-06 11:06 | XMS_ITS ---
Author Organization [facility] chauncey [place] Address [address] [facility] [place] [address] Care Team Providers Care [employer] English Teacher Name Role Phone Kathrin Lopez Primary Care Provider Didier ObregonJuana Unavailable [phone] Allergies No Known Allergies REASON FOR VISIT At Risk Footcare, Painful nail(s) aggrevated by shoes and causing difficulty standing/walking., Ingrown nail(s) Medications Medication SIG (Take, Route, Frequency, Duration) Notes Start Date End Date Status amLODIPine Besylate 5 MG 1 tablet Orally Once a day for 30 day(s) Not-Taking Linzess 145 MCG 1 capsule at least 3 0 minutes before the first meal of the day on an empty stomach Orally Once a day for 30 day(s) Not-Taking metFORMIN [...] e a day for 30 day(s) Not-Taking hydrALAZINE HCl 25 MG 1 tablet with food Orally Three times a day Active Vitamin B12 Active Omeprazole 20 MG 1 capsule 30 minutes before morning meal Orally Once a day Active Social History Tobacco Use: Social History [...] No Vital Signs Height 5ft 6in in 10/06/2023 Weight 167 lbs 10/06/2023 BMI 26.95 kg/m2 10/06/2023 Procedures Procedure Date Ordered Date Performed Result Body Sit e 80078-SYIDKDC NAIL, 6 OR MORE 10/06/2023 N/A 12813-Ebahxxic Plate 10/06/2023 N/A 80292-Dfefbomu Plate Each Additional 10/06/2023 N/A 16746-XBWX SKIN LESIONS, OVER 4 10/06/2023 N/A Encounters Encounter Location Date Provider Diagnosis [facility] [place] [address] [place] [address] 10/06/2023 Juana Obregon Type 2 diabetes mellitus with diabetic polyneuropathy E11.42 ; Tinea unguium B35.1 and Ingrown nail L60.0 Assessments Encounter Date Diagnosis (ICD Code) Assessment Notes Treatment Notes Treatment Clinical Notes Section Notes 10/06/2023 Type 2 diabetes mellitus with diabetic polyneuropathy (ICD-10 - E11.42) 10/06/2023 Tinea unguium (ICD-10 - B35.1) 10/06/2023 Ingrown nail (ICD-10 - L60.0) Plan Of Treatment Pending Test Test Name Order Date 63472-FPPJGLP NAIL, 6 OR MORE 10/06/2023 41314-Qfaeuxav Plate 10/06/2023 92150-Dkjvsuai Plate Each Additional 04939-YHXB SKIN LESIONS, OVER 4 10/06/19 24 Next Appt Details Follow Up: 2 Weeks, Reason: Provider Name:Juana Obregon , 09/13/2024 09:00:00 AM, [address] [place] [address], [phone], Procedure Notes * Category Sub-Category Detail Notes Nail Avulsion Procedure A fine sterile e levator was placed between the eponychium, nail fold, and nail plate to separate the the structures. A sterile nail splitter, and/or sterile 316 blade, was then used to longitudinally section the nail along its entire length through the eponychium to the area under the nail fold. The offending portion of each nail was from the nail bed with a rolling action and then removed with a hemostat. No underlying bone was identified. There was minimal bleeding as hemostasis was achieved through use of either a digital tournaquet or the aforementioned local with epinephrine. A bacitracin sterile dressing was applied. Local wound aftercare instructions were discussed and dispensed. The patient was informed of both conservative and future surgical procedures to prevent recurrence (14265/32) , DIABETES: Matricectomy deferred at this time due to diabetes risk Anesthesia was deferred - NEURO BERENICE: patient has medically documented neuropathic condition affecting sensation Location Lateral nail border , TA , Bilateral nail border , T5 Debride Nail 6-10 Nail debridement Nail debridem ent performed extensively to reduce/remove overall nail length and girth, subungual debris, and necrotic tissue, by manual and electrical means with use of a nail nipper and/or dremel, to more viable healthy nail plate or bed tissue 6-10. Silver nitrate used for any petechial bleeding as necessary. Patient chooses, Formula 7, tx (10522) Keratoma Treatment Parring or Cutting o f Benign Hyperkeratotic Lesion(s) 43313 ( >4 Lesions) - The Benign hyperkeratotic lesions, as described above were pared, and/or cut utilizing a sterile #15 blade, tissue nippers, and/or dremel Progress Notes * Elza LORENZO EDOB: [birth year] (78 yo F)Acc No.[id number]:10/06/2023 Progress Note Patient:?Elza Lorenzo Provider:?Juana Obregon DPM :1945???Age:78 Y???Sex:Female D ate:10/06/2023 Address:[address] [place] [address] [place] Pcp:Kathrin Lopez Subjective: * Chief Complaints: * ???At Risk Footcare Painful nail(s) aggrevated by shoes and causing difficulty standing/walking.Ingrown nail(s) * HPI: ???At Risk footcare:?Pt States Last PCP Visit:?Date?08/31/2023 ???Painful Nails:?Pt States Last PCP Visit:?Date:?08/31/2023 * Medical History:? * Surgical History:?Breast Can cer Surgery 06/23/1999 * Hospitalization/Major Diagno stic Procedure:?Denies Past Hospitalization * Family History:?Mother: unkn own.?Father: unknown.? Shady Valadez - Heart attack. * Social History:?Tobacco Use:?Tobacco Use/Smoking?Are you a:?nonsmoker ?Tobacco use other than smoking?Are you an other tobacco user??No ???Drugs/Alcohol:?Drugs?Have you used drugs other than those for medical reasons in the past 12 months??No ?Alcohol Screen?Did you have a drink containing alcohol in the past year??Yes ?How often did you have a drink containing alcohol in the past year??Monthly or less (1 point) ?Points?1 ?Interpretation?Negative ???Miscellaneous:?Caffeine: yes, 1-2 cups per day. ?Children: yes, 2. ?Exercise: yes, walking. ?Marital status: . ?Occupation: Retired. * Medications:?TakingVitamin B 12 Omeprazole 20 MG Capsule Delayed Release 1 capsule 30 minutes before morning meal Orally Once a dayhydrALAZINE HCl 25 MG Tablet 1 tablet with food Orally Three times a dayRosuvastatin Calcium 20 MG Tablet 1 tablet Orally Once a daymetFORMIN HCl 1000 MG Tablet 1 tablet with a meal Orally Once a dayLisinopril 40 MG Tablet 1 tablet Orally Once a dayTaking Vitamin B12 Taking Omeprazole 20 MG Capsule Delayed Release 1 capsule 30 minutes before morning meal Orally Once a dayTaking hydrALAZINE HCl 25 MG Tablet 1 tablet with food Orally Three times a dayTaking Rosuvastatin Calcium 20 MG Tablet 1 tablet Orally Once a dayTaking metFORMIN HCl 1000 MG Tablet 1 tablet with a meal Orally Once a dayTaking Lisinopril 40 MG Tablet 1 tablet Orally Once a dayNot-Taking/PRNamLODIPine Besylate 5 MG Tablet 1 tablet Orally Once a dayLinzess 145 MCG Capsule 1 capsule at least 30 minutes before the first meal of the day on an empty stomach Orally Once a dayNexIUM 40 MG Capsule Delayed Release 1 capsule Orally Once a dayMedication List reviewed and reconciled with the patientNot-Taking/PRN amLODIPine Besylate 5 MG Tablet 1 tablet Orally Once a dayNot-Taking/PRN Linzess 145 MCG Capsule 1 capsule at least 30 minutes before the first meal of the day on an empty stomach Orally Once a dayNot- Taking/PRN NexIUM 40 MG Capsule Delayed Release 1 capsule Orally Once a dayMedication List reviewed and reconciled with the patient * Allergies:?N.K.D.A.yes[Aller gies Verified] Objective: * Vitals:?Ht: 5ft 6in, Wt: 167 , BMI: 26.95, Shoe size: 9, BS: not taken, Ht-cm: 167.64 cm, Wt-k.75 kg. * ???Past Orders: ???Lab:HEMOGLOBIN A1C (GLYCO HEMOGLOBIN) (Order Date - 06/09/2023) (Collection Date - 06/09/2023) ? Value Reference Range ?HEMOGLOBIN A1C % (HH) 6.5 * Examination: ???Ophthalmology Referral: ?DIABETES EYE EXAM?Diabetic Retinopathy Screening:?No ?Findings of Diabetic Eye Exam:?no retinopathy?Neurological: ?SENSORY:?Neurological exam demonstrates, reduced light touch sensation, reduced sharp/dull pin prick discrimination , reduced vibration sensation, 5.07 monofilament test performed at plantar aspects of 5 varied sites per foot shows sensation, absent, at Forefoot, B/L , Pt relates , anesthesia.?Vascular: ?DP PULSES:?2/4, B/L.?PT PULSES:?2/4, B/L.?Nails: ?NAILS are:? Elongated, overgrown, dystrophic, lytic, greater than 3mm thick, discolored and friable with crumbly malodorous subungual debris, with dull to no pain on palpation due to neuropathy, 2-5 Right foot 2,5 Left.?Dermatologic: ?SKIN FINDINGS:?Skin shows sign(s) of raised hyperpigmented lesion [id number] left dorsal foot, Skin exam reveals Keratotic lesion(s) located at, Heel(s), B/L , SUB 5th , B/L ,SUB MTH (s) , 2 , Right.?Ingrown Nail: ?INSPECTION:?Reveals nail incurvation, dull pain on palpation due to neuropathy, groove hypertrophy , Lateral nail border , TA , Bilateral nail borders , T5.? Assessment: * Assessment: 1.?Type 2 diabetes mellitus with diabetic polyneuropathy - E11.42 (Primary)?2.?Tinea unguium - B35.1?3.?Ingrown nail - L60.0? Plan: * Treatment: 2.?Tinea unguium?Procedure: 20640-SCEWNFO NAIL, 6 OR MORE 3.?Ingrown nail?Procedure: 89814-Ykgoqkzr Plate ?Procedure: 78822-Irwkriil Plate Each Additional * Procedures:?Debride Nail 6-10:?Nail debridement?Nail debridement performed extensively to reduce/remove overall nail length and girth, subungual debris, and necrotic tissue, by manual and electrical means with use of a nail nipper and/or dremel, to more viable healthy nail plate or bed tissue 6-10. Silver nitrate used for any petechial bleeding as necessary. Patient chooses, Formula 7, tx (95953).?Keratoma Treatment:?Parring or Cutting of Benign Hyperkeratotic Lesion(s)?62864 ( >4 Lesions) - The Benign hyperkeratotic lesions, as described above were pared, and/or cut utilizing a sterile #15 blade, tissue nippers, and/or dremel.?Nail Avulsion:?Location?Lateral nail border , TA , Bilateral nail border , T5.?Anesthesia?was deferred - NEUROPATHY: patient has medically documented neuropathic condition affecting sensation.?Procedure?A fine sterile elevator was placed between the eponychium, nail fold, and nail plate to separate the the structures. A sterile nail splitter, and/or sterile 316 blade, was then used to longitudinally section the nail along its entire length through the eponychium to the area under the nail fold. The offending portion of each nail was from the nail bed with a rolling action and then removed with a hemostat. No underlying bone was identified. There was minimal bleeding as hemostasis was achieved through use of either a digital tournaquet or the aforementioned local with epinephrine. A bacitracin sterile dressing was applied. Local wound aftercare instructions were discussed and dispensed. The patient was informed of both conservative and future surgical procedures to prevent recurrence (49151/32) , DIABETES: Matricectomy deferred at this time due to diabetes risk.? * Procedure Codes:?37033 DEBRI DE NAIL, 6 OR MORE, Modifiers: XS 23775 Avulsion Plate, [place] [address] Avulsion Plate Each Additional, Modifiers: T5 60600 TRIM SKIN LESIONS, OVER 4, Modifiers: XS * Follow Up:?2 Weeks * Images: * Sign off status: Completed true * Provider:?Juana Obregon DPM Date:?2023 Generated for Penelope frances/Jaskaran/Salomon on:?09/06/2024 11:05 AM EDT History and Physical Notes * HPI (History of Present Illness) Category Sub-Category Detail Notes Category Not es Painful Nails Pt States Last PCP Visit: Date:: 08/31/2023 At Risk footcare Pt States Last PCP Visit: Date: Examination Category Sub-Category Detail Notes Category Not es Ingrown Nail INSPECTION: Reveals nail inc urvation, dull pain on palpation due to neuropathy, groove hypertrophy , Lateral nail border , TA , Bilateral nail borders , T5 Neurological SENSORY: Neurological exa m demonstrates, reduced light touch sensation, reduced sharp/dull pin prick discrimination , reduced vibration sensation, 5.07 monofilament test performed at plantar aspects of 5 varied sites per foot shows sensation, absent, at Forefoot, B/L , Pt relates , anesthesia Dermatologic SKIN FINDINGS: Skin shows sign( s) of raised hyperpigmented lesion [id number] left dorsal foot, Skin exam reveals Keratotic lesion(s) located at, Heel(s), B/L , SUB 5th , B/L ,SUB MTH (s) , 2 , Right Ophthalmology Referral DIABETES EYE EXAM Diabeti c Retinopathy Screening:: No Findings of Diabetic Eye Exam:: no retin opathy Vascular DP PULSES (B): 2/4, B/L PT PULSES (B): 2/4, B/L Nails NAILS are: Elongated, overg rown, dystrophic, lytic, greater than 3mm thick, discolored and friable with crumbly malodorous subungual debris, with dull to no pain on palpation due to neuropathy, 2-5 Right foot 2,5 Left
--- OUTSIDE RECORDS SUMMARY | 2024-09-06 11:06 | XMS_ITS ---
Author Organization [facility] chauncey [place] Address [address] [facility] [place] [address] Care Team Providers Care Whirley Operator Name Role Phone Kathrin Lopez Primary Care Provider Didier ObregonJuana Unavailable [phone] Allergies No Known Allergies REASON FOR VISIT At Risk Footcare, Painful nail(s) aggrevated by shoes and causing difficulty standing/walking. Medications Medication SIG (Take, Route, Frequency, Duration) Notes Start Date End Date Status NexIUM 40 MG 1 capsule Orally Onc [...] Once a day for 30 day(s) Not-Taking Omeprazole 20 MG 1 capsule 30 minutes before morning meal Orally Once a day Active hydrALAZINE HCl 25 MG 1 tablet with food Orally Three times a day Active Vitamin B12 Active Rosuvastatin Calcium 40 MG 1 tablet [...] No Vital Signs Height 5ft 6in in 05/17/2024 Weight 176 lbs 05/17/2024 BMI 28.4 kg/m2 05/17/2024 Blood pressure systolic 120 mm Hg 05/17/19 25 Blood pressure diastolic 80 mm Hg 025 Procedures Procedure Date Ordered Date Performed Result Body Sit e 48120-IRYIPTQ NAIL, 6 OR MORE 05/17/2024 N/A 91440-BFOH SKIN LESIONS, OVER 4 05/17/2024 N/A Encounters Encounter Location Date Provider Diagnosis [facility] [address] [address] 05/17/2024 Juana Obregon Type 2 diabetes mellitus with diabetic polyneuropathy E11.42 and Tinea unguium B35.1 Assessments Encounter Date Diagnosis (ICD Code) Assessment Notes Treatment Notes Treatment Clinical Notes Section Notes 05/17/2024 Type 2 diabetes mellitus with diabetic polyneuropathy (ICD-10 - E11.42) 05/17/2024 Tinea unguium (ICD-10 - B35.1) Plan Of Treatment Pending Test Test Name Order Date 82152-EHESCJZ NAIL, 6 OR MORE 05/17/2024 78902-WBGU SKIN LESIONS, OVER 4 05/17/19 25 Next Appt Details Follow Up: prn, Reason: Provider Name:Juana Obregon , 09/13/2024 09:00:00 AM, [address] [place] [address], [id number], Procedure Notes * Category Sub-Category Detail Notes Debride Nail 6-10 Nail debridement Due to the cl inical pathology outlined in the exam findings, performance of this nail treatment is medically necessary as its management by an unskilled/untrained nonprofessional would put this patients foot and overall health at risk. Therefore, debridement to affected nail(s), as described in exam ( TA, T1, T2, T3, T4, T5, T6, T7, T8, T9, ), was performed exclusively by the physician of record to reduce/remove overall nail length, girth, thickness, subungual debris, and necrotic tissue, by manual and/or electrical means through the use of a nail nipper and/or dremel-type grinder chipper, to a more viable healthy nail plate or bed tissue 6-10 nails in total. Silver nitrate was used for any petechial bleeding as necessary. Definitive antifungal treatment options, both pharmaceutical and surgical, have been reviewed and discussed with the patient. The patient solely prefers the use of intermittent/as needed professional debridement services for their nail condition and understands the need for additional periodic treatments to maintain effectiveness in symptomatic relief - 03960 Keratoma Treatment Parring or Cutting o f Benign Hyperkeratotic Lesion(s) (-57) More than 4 Lesions - Due to the at risk nature of the patients medical condition as documented in the exam findings, performance of this keratoderma treatment is medically necessary as its management by an unskilled/untrained nonprofessional would put this patients foot and overall health at risk. Therefore, the benign hyperkeratotic lesions, (5 ) in total, locations as stated and described in the exam (Plantar Heel(s), B/L , SUB 5th , B/L ,SUB MTH (s) , 2 , Right ), were pared, and/or cut utilizing a sterile 15 blade, tissue nippers, and/or power dremel instrumentation by the physician of record - 49698 Progress Notes * Elza LORENZO EDOB: [birth year] (78 yo F)Acc No.[id number]:05/17/2024 Progress Note Patient:?Elza LORENZO Provider:?Juana Obregon DPM :1945???Age:78 Y???Sex:Female D ate:05/17/2024 Address:[address] [place] [address] [facility] Pcp:Kathrin [place] Subjective: * Chief Complaints: * ???At Risk Footcare Painful nail(s) aggrevated by shoes and causing difficulty standing/walking. * HPI: ???At Risk footcare:?Pt States Last PCP Visit:?Date?02/22/2024 * ROS:?General/Constitutional:?Nausea?denies.?Vomiting?denies.?Hunger Thirst?denies.?Loss appetite?denies.?Chills?denies.?Fatigue?denies.?Fever?denies.?Night Sweats?denies.?Unexplained weight loss?denies.?Unexplained weight gain?denies.?HEENTM:?Dentures?denies.?Dizziness?denies.?Glasses/contacts?denies.?Retinopathy?de nies.?Blurred/double vision?denies.?TMJ?denies.?Discharge/drainage?denies.?Implants?denies.?Sore throat?denies.?Dental implants?denies.?Hard of hearing ?denies.?Difficulty chewing/swallowing/speaking?denies.?Nose bleeds?denies.?Sore mouth?denies.?Respiratory:?On Oxygen?denies.?Pneumonia/pleurisy?denies.?Bronchitis?denies.?Emphysema?denies.?C oughing?denies.?Cough blood?denies.?Shortness of breath?denies.?Wheezing?denies.?Cardiovascular:?Pacemaker?denies.?MVP?denies.?WPW?denies.?CHF?denies.?Heart attack?denies.?Septal defect?denies.?Rapid beat?denies.?Chest pain ?denies.?Atrial Fib.?denies.?Murmur/Palpitations?denies.?Gastrointestinal:?Hemorrhoids?denies.?Stomach/Abdominal pain?denies.?Dark blood stool?denies.?Irritable bowel ?denies.?Constipation?denies.?Diarrhea?denies.?Hematology:?Swelling?denies.?Clots?denies.?Varicose Veins?denies.?Bruising?denies.?Bleeding problem?denies.?Genitourinary:?Blood urine?denies.?Frequent/Painfu/urination/bladder control?denies.?Kidney stones?denies.?Infection (UTI)?denies.?Nephropathy?denies.?sex trans dis (STD)?denies.?Prostate?denies.?Musculoskeletal:?Hammertoes?denies.?Bunions?denies.?Back Pain?denies.?Muscle Cramps/ Resting?denies.?Muscle cramps / walking?denies.?Generalized aches and pains?denies.?Weakness?denies.?Integ.:?Cohen?denies.?Scars?denies.?Corns/calluses?denies.?Ingrown nails?denies.?Painful nails?admits.?Open Sores?denies.?Rashes?denies.?Neurologic:?Difficulty sleeping?denies.?Brain disorder?denies.?Numbness?denies.?Balance trouble?denies.?Confusion?denies.?Fainting/blackouts?denies.?Tingling?denies.?Tr emors?denies.? * Medical History:? * Surgical History:?Breast Can cer Surgery 06/23/1999 * Hospitalization/Major Diagno stic Procedure:?Denies Past Hospitalization * Family History:?Mother: unkn own.?Father: unknown.? Shady Valadez - Heart attack. * Social History:?Tobacco Use:?Tobacco Use/Smoking?Are you a:?nonsmoker ?Tobacco use other than smoking?Are you an other tobacco user??No * Medications:?TakingVitamin B 12 Omeprazole 20 MG [...] Verified] Objective: * Vitals:?Ht: 5ft 6in, Wt: 176 , BMI: 28.4, Shoe size: 9, BP: 120/80 mm Hg, BS: not taken, Ht-cm: 167.64 cm, Wt-k.83 kg. * ???Past Orders: ???Lab:HEMOGLOBIN A1C (GLYCO HEMOGLOBIN) (Order Date - 06/09/2023) (Collection Date & Time - 06/09/2023 09:12 AM) ? Value Reference Range ?HEMOGLOBIN A1C % (HH) 6.5 * Examination: ???Ophthalmology Referral: ?DIABETES EYE EXAM?Procedure Performed:?No ?Eye Exam not performed:?No reason specified?General Examination: ?GENERAL APPEARANCE:?Reveals a pleasant, alert, well nourished, well- developed, well hydrated individual, who demonstrates proper attention to hygiene/body habitus, and is in no acute distress, Pt serves as own historian for office visit today.?ORIENTED:?person, place, and time.?Neurological: ?SENSORY:?Neurological exam demonstrates, reduced light touch sensation, [...] to no pain on palpation due to neuropathy,,,TA, T1, T2, T3, T4, T5, T6, T7, T8, T9.?Dermatologic: ?SKIN FINDINGS:?Skin exam reveals Keratotic lesion(s) located at?Plantar Heel(s), B/L , SUB 5th , B/L ,SUB MTH (s) , 2 , Right.? Assessment: * Assessment: 1.?Type 2 diabetes mellitus with diabetic polyneuropathy - E11.42 (Primary)???2.?Tinea unguium - B35.1??? Plan: * Treatment: 2.?Tinea unguium?Procedure: 51605-SVSPMCV NAIL, 6 OR MORE * Procedures:?Debride Nail 6-10:?Nail debridement?Due to the clinical pathology outlined in the exam findings, performance of this nail treatment is medically necessary as its management by an unskilled/untrained nonprofessional would put this patients foot and overall health at risk. Therefore, debridement to affected nail(s), as described in exam ( TA, T1, T2, T3, T4, T5, T6, T7, T8, T9, ), was performed exclusively by the physician of record to reduce/remove overall nail length, girth, thickness, subungual debris, and necrotic tissue, by manual and/or electrical means through the use of a nail nipper and/or dremel-type grinder chipper, to a more viable healthy nail plate or bed tissue 6- 10 nails in total. Silver nitrate was used for any petechial bleeding as necessary. Definitive antifungal treatment options, both pharmaceutical and surgical, have been reviewed and discussed with the patient. The patient solely prefers the use of intermittent/as needed professional debridement services for their nail condition and understands the need for additional periodic treatments to maintain effectiveness in symptomatic relief - 99284.?Keratoma Treatment:?Parring or Cutting of Benign Hyperkeratotic Lesion(s)?(-57) More than 4 Lesions - Due to the at risk nature of the patients medical condition as documented in the exam findings, performance of this keratoderma treatment is medically necessary as its management by an unskilled/untrained nonprofessional would put this patients foot and overall health at risk. Therefore, the benign hyperkeratotic lesions, (5 ) in total, locations as stated and described in the exam (Plantar Heel(s),?B/L?,?SUB 5th?,?B/L?,SUB MTH (s)?,?2?,?Right?), were pared, and/or cut utilizing a sterile 15 blade, tissue nippers, and/or power dremel instrumentation by the physician of record - 69209.? * Procedure Codes:?17465 DEBRI DE NAIL, 6 OR MORE, Modifiers: XS 36975 TRIM SKIN LESIONS, OVER 4, Modifiers: XS * Follow Up:?prn * Images: * Sign off status: Completed true * Provider:?Juana Obregon DPM Date:?2024 Generated for Penelope frances/Jaskaran/Salomon on:?09/06/2024 11:06 AM EDT History and Physical Notes * HPI (History of Present Illness) Category Sub-Category Detail Notes Category Not es At Risk footcare Pt States Last PCP Visit: Date: 4 Examination Category Sub-Category Detail Notes Category Not es Neurological SENSORY: Neurological exa m demonstrates, reduced light touch sensation, reduced sharp/dull pin prick discrimination , reduced vibration sensation, 5.07 monofilament test performed at plantar aspects of 5 varied sites per foot shows sensation, absent, at Forefoot, B/L , Pt relates ,cont. anesthesia Dermatologic SKIN FINDINGS: Skin exam reveal s Keratotic lesion(s) located at Plantar Heel(s), B/L , SUB 5th , B/L ,SUB MTH (s) , 2 , Right General Examination GENERAL APPEARANCE: Reveals a pleasant, alert, well nourished, well-developed, well hydrated individual, who demonstrates proper attention to hygiene/body habitus, and is in no acute distress, Pt serves as own historian for office visit today ORIENTED: person, place, and t junior Ophthalmology Referral DIABETES EYE EXAM Procedure Perform ed:: No Eye Exam not performed:: No reason speci fied Vascular DP PULSES (B): 2/4, B/L PT PULSES (B): 2/4, B/L CAPILLARY FILL TIME: immediate, all digi ts, B/L Nails NAILS are: Elongated, overg rown, dystrophic, lytic, greater than 3mm thick, discolored and friable with crumbly malodorous subungual debris, with dull to no pain on palpation due to neuropathy,,,TA, T1, T2, T3, T4, T5, T6, T7, T8, T9
== END 2024-09-06 10:36 | disposition home or self-care (01) ==
LOC: HO.HMCH 09:55
PROVIDERS: PCP Internal Medicine; Visit Provider Internal Medicine
DX: I50.9 Heart failure, unspecified (principal); E11.65 Type 2 diabetes mellitus with hyperglycemia; Z85.3 Personal history of malignant neoplasm of breast; I10 Essential (primary) hypertension; E78.00 Pure hypercholesterolemia, unspecified; I25.10 Atherosclerotic heart disease of native coronary artery without angina pectoris; K21.9 Gastro-esophageal reflux disease without esophagitis

== ENCOUNTER → 2024-09-06 09:54 | Outpatient (BNVA) | payer MEDICARE, SELFPAY | PROVIDERS: PCP Internal Medicine; Visit Provider Internal Medicine | DX: E11.65 Type 2 diabetes mellitus with hyperglycemia (principal); E78.00 Pure hypercholesterolemia, unspecified; I25.10 Atherosclerotic heart disease of native coronary artery without angina pectoris; K21.9 Gastro-esophageal reflux disease without esophagitis; I11.0 Hypertensive heart disease with heart failure; I50.9 Heart failure, unspecified; Z85.3 Personal history of malignant neoplasm of breast | CPT/HCPCS: 83036; 99212 ==

== ENCOUNTER 2024-11-01 10:40 | Outpatient (REF) | payer MEDICARE, SELFPAY ==
--- OUTSIDE RECORDS SUMMARY | 2024-11-01 12:30 | XMS_ITS | Clinical Summary ---
Author Organization [facility] Address [address] [facility] 7 [place] [address] Care Team Providers Care Call Center Coordinator Name Role Phone Unavailable Primary Care Provider Unavailabl e Immunizations Immunization Administration Dates Next Due Influenza, seasonal, injectable, [...] patient's age to complete this topic Meningococcal B Vaccine Aged Out No l onger eligible based on patient's age to complete [...]
== END 2024-11-01 10:41 | disposition home or self-care (01) ==
LOC: HO.MAMMO 10:40
PROVIDERS: PCP Internal Medicine; Visit Provider Internal Medicine
DX: Z12.31 Encounter for screening mammogram for malignant neoplasm of breast (principal)
CPT/HCPCS: 77063; 77067

== ENCOUNTER → 2024-11-01 11:45 | Outpatient (BNV) | payer MEDICARE, SELFPAY | PROVIDERS: PCP Internal Medicine; Visit Provider Internal Medicine | DX: Z12.31 Encounter for screening mammogram for malignant neoplasm of breast (principal) | CPT/HCPCS: 77063; 77067 ==

== ENCOUNTER 2025-01-30 09:50 | Outpatient (AMB) | payer MEDICARE, SELFPAY ==
--- OUTSIDE RECORDS SUMMARY | 2025-01-24 05:00 | XMS_ITS ---
Author Organization [facility] Address [address] [place] [address] Care Team Providers Care Pattern Carrier Name Role Phone Kathrin [place] Primary Care Provider Juana Marques [phone] Encounters Encounter Location Date Provider Diagnosis [facility] [address] [place] [address] 01/24/2025 Juana Obregon Plan Of Treatment No Information Progress Notes * Elza LORENZO EDOB: [birth year] (79 yo F)Acc No.[id number]:01/24/2025 Progress Note Patient: Elza PASCAL Provider: Simone Obregon DPM :1945 A ge:79 Y S ex:Female Date:01/24/2025 Address:[address] [place] [address] [facility] Pcp:Kathrin [place] Subjective: * Chief Complaints: * * Medical History: Objective: * Vitals: Assessment: Plan: * Treatment: * Images: * The named appointment provid er may or may not be the originator of this progress note, and it is not deemed complete until electronically signed by the appointment provider. Sign off status: Pending * Provider: Simone Obregon DPM Date: 01/24/2025 Generated for Penelope frances/Jaskaran/eTransmitting on: 01/30/2025 11:55 AM EDT
--- NOTE | 2025-01-30 10:11 | MHC.PC.OV ---
Vital Signs 01/30/25 10:18 Height 5 ft 6 in Weight 168 lb BMI 27.1 BP 136/72 Blood Pressure Location Lt brachial Position Sitting Pulse 65 Pulse Source Pulse Oximeter Pulse Oximetry (%) 97 Oxygen Delivery Method Room Air Intake Visit Reasons: HTN, DM Allergies hydrochlorothiazide Allergy (Unknown, Verified 01/30/25 10:19) unknown amlodipine Adverse Reaction (Intermediate, Verified 01/30/25 10:19) leg swelling Tobacco use date assessed: 05/31/24 Fall risk assessment: 1 Fall in past year Last assessed Fall Risk: 01/30/25 Dental Screening Dental Screen Date: 05/31/24 HPI HTN, DM HPI Details cough yesterday, no fever,had covid , sore throat, covid test so far is negative, non productive, ,no sob, PFSH Medical History (Updated 01/30/25 @ 13:41 by Kathrin Lopez MD) Subdural hematoma Type 2 diabetes mellitus with hyperglycemia History of breast cancer GERD (gastroesophageal reflux disease) Hypertension Hypercholesterolemia Coronary artery disease Surgical History H/O colonoscopy History of left mastectomy History of cholecystectomy History of tonsillectomy Family History Father Past heart attack Hypertension Mother Throat cancer Social History Household Members: Children Housing: House Are you a primary assurance services manager health care to a significant other at home: No Do you presently have visiting nurse or other home services: No Alcohol intake: former Patient Tobacco Use Status: Never used Tobacco Tobacco use type: Cigarette e-Cigarette/Vaping Use: Never Used Second Hand Smoke Exposure: No service: No Current occupational status: retired Cognitive needs: No Hearing needs: No Vision needs: Yes Questionnaire PHQ-9 Over the last 2 weeks, how often have you been bothered by any of the following problems? 1. Little interest or pleasure in doing things: not at all 2. Feeling down, depressed, or hopeless: not at all 3. Trouble falling or staying asleep, or sleeping too much: not at all 4. Feeling tired or having little energy: not at all 5. Poor appetite or overeating: not at all 6. Feeling bad about yourself - or that you are a failure or have let yourself or your family down: not at all 7. Trouble concentrating on things, such as reading the newspaper or watching television: not at all 8. Moving or speaking so slowly that other people could have noticed. Or the opposite - being so fidgety or restless that you have been moving around a lot more than usual: not at all 9. Thoughts that you would be better off or of hurting yourself in some way: not at all Total score: 0 Source: Developed by Drs. Danie Musa, Janessa Hassan, Miguel Ángel Xavier and colleagues, with an educational jocelyn from [employer]. Thrive Questionnaire Date Thrive assessed: 05/31/24 I am a: Patient What is your living situation today?: I have a steady place to live Within the past 12 months, did the food you bought not last and you didn't have the money to get more?: Never true Within the past 12 months, did you worry whether your food would run out before you got money to buy more?: Never true Do you have trouble paying for medicines?: Yes Do you have trouble getting transportation to medical appointments?: Yes Do you have trouble paying your heating and electricity bill?: No Do you have trouble taking care of your child, family member or friend?: No Do you have trouble with day-to-day activities such as bathing, preparing meals, shopping, managing finances, etc.?: No Are you currently unemployed and looking for a job?: Yes Are you interested in more education?: No Please select the resources that you would like help with: None Currently or been in a relationship where the following occur: No concerns reported THRIVE Score: 1 AUDIT C Alcohol Use Questionnaire (AUDIT-C) 1. How often do you have a drink containing alcohol?: Never 3. How often do you have six or more drinks on one occasion?: Never Total Score: 0 PAULA-7 AMB Questionnaire PAULA-7 Date PAULA - 7 assessed: 05/31/24 Feeling nervous, anxious, or on edge: 0 = Not at all Not being able to stop or control worryin = Not at all Worrying too much about different things: 0 = Not at all Trouble relaxin = Not at all Being so restless that it is hard to sit still: 0 = Not at all Becoming easily annoyed or irritable: 0 = Not at all Feeling afraid as if something awful might happen: 0 = Not at all Total PAULA-7 score (0-4 normal; 5-9 mild; 10-14 moderate; 15-21 severe): 0 Source: Developed by Drs. Danie Musa, Janessa Hassan, Miguel Ángel Xavier and colleagues, with an educational jocelyn from [employer]. Physical exam (Primary Care) Vital Signs: Last Vital Signs Pulse 65 01/30/25 10:18 BP 136/72 01/30/25 10:18 Pulse Ox 97 01/30/25 10:18 Oxygen Delivery Method Room Air 01/30/25 10:18 BMI result Body Mass Index 27.1 Tobacco/Smoking Status: Tobacco use Status Tobacco use date assessed 05/31/24 01/30/25 10:12 Patient Tobacco Use Status Never used Tobacco 01/30/25 10:12 Tobacco use type Cigarette 01/30/25 10:12 e-Cigarette/Vaping Use Never Used 01/30/25 10:12 PHQ-9: PHQ-9 Score PHQ-9: Total score 0 01/30/25 10:49 Thrive Assessment: Date of Thrive Assessment Date Thrive assessed 05/31/24 01/30/25 10:12 Currently or been in a relationship where the following occur: No concerns reported Const General: alert; No acute distress Eyes Conjunctivae: conjunctivae normal Resp Auscultation: clear to auscultation bilaterally Cardio Rate: regular rate Rhythm: regular rhythm GI Inspection: Yes normal to inspection Extrem General: Yes normal to inspection and No edema Results AMB Hemoglobin A1c AMB Hemoglobin A1c 6.6 % Last Edit by Nancy Marlow CMA on 01/30/25 10:40 Results Reviewed Results Reviewed: Laboratory Last Values Hgb A1c (Clinic) 6.6 % (4.0-6.0) H 01/30/25 10:40 Coding Level of Care Code Est Pt Level 4 (03347) Complex EM visit Add On G2211 Diagnoses Type 2 diabetes mellitus with hyperglycemia, without long-term current use of insulin E11.65 Diabetes mellitus half-way insulin use: without supervisor intermediates use Essential hypertension I10 Hypertension type: essential hypertension Hypercholesterolemia E78.00 Coronary artery disease involving lone [place] coronary artery of [place] heart without angina pectoris I25.10 Associated angina: without angina Coronary Disease-Associated Artery/Lesion type: [place] artery [place] vs. transplanted heart: lone pine heart Gastroesophageal reflux disease without esophagitis K21.9 Esophagitis presence: without esophagitis History of breast cancer Z85.3 Cough R05 Assessment & Plan Assessment & Plan (1) Type 2 diabetes mellitus with hyperglycemia: Code(s): E11.65 - Type 2 diabetes mellitus with hyperglycemia Category: Medical Qualifiers: Diabetes mellitus supervisor intermediates insulin use: without half-way use Qualified Code(s): E11.65 - Type 2 diabetes mellitus with hyperglycemia Plan: Decrease the amount of carbohydrate intake, pasta, bread, rice and potatoes are all sugar and that is aside from all the sweet stuff, remember that fruits are good but they are Sweet also. Hemoglobin A1c goal of less than 7.0. Patient is on metformin a 1000 twice a day Januvia 100 mg once a day (2) Hypertension: Code(s): I10 - Essential (primary) hypertension Category: Medical Qualifiers: Hypertension type: essential hypertension Qualified Code(s): I10 - Essential (primary) hypertension Plan: Continue with blood pressure medication. Decrease salt intake and exercise takes nifedipine 30 mg once a day lisinopril 40 mg once a day hydralazine 50 mg 3 times a day (3) Hypercholesterolemia: Code(s): E78.00 - Pure hypercholesterolemia, unspecified Category: Medical Plan: Avoid fried foods, chicken skin, eggs, butter margarine, pastries and meat. Be it pork or beef they have a lot of cholesterol LDL goal of less than 70 and triglyceride of less than 150 patient is taking rosuvastatin patient will need blood work (4) Coronary artery disease: Code(s): I25.10 - Atherosclerotic heart disease of [place] coronary artery without angina pectoris Category: Medical Qualifiers: Associated angina: without angina Coronary Disease-Associated Artery/Lesion type: [place] artery [place] vs. transplanted heart: [place] heart Qualified Code(s): I25.10 - Atherosclerotic heart disease of [place] coronary artery without angina pectoris Plan: Control the cholesterol, weight, blood pressure, diabetes on aspirin 81 mg once a (5) GERD (gastroesophageal reflux disease): Code(s): K21.9 - Gastro-esophageal reflux disease without esophagitis Category: Medical Qualifiers: Esophagitis presence: without esophagitis Qualified Code(s): K21.9 - Gastro-esophageal reflux disease without esophagitis Plan: Avoid the foods that causes that usually spicy foods, tomato products, juices, coffee, soda and foods that your sensitive to. After eating do not lie down, allow 3-4 hours before in lie down. And keep the head of bed above 30 degrees to avoid the acid from going up. (6) History of breast cancer: Comment: 1999 with left mastectomy chemotherapy Dr. Thorpe Code(s): Z85.3 - Personal history of malignant neoplasm of breast Category: Medical Plan: Patient is up-to-date with mammogram (7) Cough: Code(s): R05 - Cough Category: Medical Plan History of Present Illness The patient is a 79-year-old female presenting for a follow-up visit. The patient has a history of coronary artery disease, hypertension, and hypercholesterolemia, managed with medication and lifestyle modifications. She also has gastroesophageal reflux disease (GERD) and diabetes mellitus, with her diabetes being controlled with metformin and Januvia, and a recent hemoglobin A1c of 6.6. In 1999, she underwent a left mastectomy for breast cancer and is current with mammogram screenings. The patient has severe congestive heart failure, with recent blood work showing normal renal function and an LDL cholesterol level of 66. Preventative care includes regular mammograms and a pending bone density screening. Health Maintenance - Mammogram: Up to date - Bone density screening: Pending - Flu shot: Scheduled for February - Shingles vaccine: Recently administered Social History Review of Systems - General: Denies fever - Respiratory: Reports cough and sore throat; denies dyspnea and phlegm production - Gastrointestinal: Denies abdominal pain and diarrhea Physical Exam - Oral cavity: No significant findings - Respiratory: Lungs clear to auscultation bilaterally - Abdomen: Non-tender, no distension Results - Labs: Hemoglobin A1c 6.6, LDL cholesterol 66 mg/dL, normal renal function and electrolytes Plan Patient was informed and verbally consented to the use of an ambient scribe for clinic note documentation during this visit. 1. Coronary Artery Disease The patient is on aspirin 81 mg daily for coronary artery disease management. 2. Hypertension The patient is taking nifedipine 30 mg daily, lisinopril 40 mg daily, and hydralazine 50 mg three times daily for blood pressure control. 3. Hypercholesterolemia The patient is on rosuvastatin with an LDL goal of less than 70 mg/dL and triglycerides less than 150 mg/dL. 4. Diabetes Mellitus The patient's diabetes is managed with metformin 1000 mg twice daily and Januvia 100 mg daily, with a hemoglobin A1c goal of less than 7.0%. 5. Gastroesophageal Reflux Disease (Gerd) The patient is following a reflux management plan, though specific medications were not detailed in the conversation. 6. Breast Cancer With Left Mastectomy The patient is up to date with mammogram screenings following her history of breast cancer and left mastectomy. 7. Congestive Heart Failure The patient's congestive heart failure is being monitored, with no specific changes in management discussed during this visit. Discussion Notes During the visit, I discussed the importance of maintaining current medication regimens for coronary artery disease, hypertension, and diabetes mellitus. I emphasized the need for regular follow-up blood work to monitor cholesterol levels and diabetes control. We also reviewed the patient's preventative care measures, including mammogram and bone density screening. Patient Instructions - Continue current medications as prescribed. - Schedule and complete fasting blood work as discussed. - Follow up on bone density screening appointment. - Receive flu shot in February. - Consider shingles vaccine if not already completed. Orders: Orders Hemoglobin A1c Today I25.10 - Atherosclerotic heart disease of [place] coronary artery without angina pectoris Creatinine Urine Today E11.65 - Type 2 diabetes mellitus with hyperglycemia, I25.10 - Atherosclerotic heart disease of [place] coronary artery without angina pectoris Thyroid Stimulating Hormone Today I25.10 - Atherosclerotic heart disease of [place] coronary artery without angina pectoris Vitamin B12 and Folate Today I25.10 - Atherosclerotic heart disease of [place] coronary artery without angina pectoris Vitamin D 25-OH Total Today I25.10 - Atherosclerotic heart disease of [place] coronary artery without angina pectoris SARS-CoV2/FLU/RSV Today R05 - Cough XR DEXA axial skeleton Today M54.9 - Dorsalgia, unspecified, M81.0 - Age-related osteoporosis without current pathological fracture AMB Hemoglobin A1c Today Z13.9 - Encounter for screening, unspecified Complete Blood Count Auto Diff Today I25.10 - Atherosclerotic heart disease of [place] coronary artery without angina pectoris Comprehensive Met. Panel Today I25.10 - Atherosclerotic heart disease of [place] coronary artery without angina pectoris Free T4 (Free Thyroxine) Today I25.10 - Atherosclerotic heart disease of [place] coronary artery without angina pectoris Microalbumin, Random (w Creat) Today E11.65 - Type 2 diabetes mellitus with hyperglycemia, I25.10 - Atherosclerotic heart disease of [place] coronary artery without angina pectoris Lipid Panel Today E78.00 - Pure hypercholesterolemia, unspecified, I25.10 - Atherosclerotic heart disease of [place] coronary artery without angina pectoris UA w Microscopic Today I25.10 - Atherosclerotic heart disease of [place] coronary artery without angina pectoris
[2025-01-30 10:18] VITALS: BP 136/72; PULSE 65; O2SAT 97; BMI 27.1
--- OUTSIDE RECORDS SUMMARY | 2025-01-30 11:55 | XMS_ITS | Patient Health Record ---
Author Organization [facility] Address [address] [place] [address] Care Team Providers Care Hollow Handle Knife Assembler Name Role Phone Po Kathrin BUNCH Primary Care Provider Danie Red Unavailable [phone] Amanda Thorpe Unavailable Unavailable Allergies No Known Allergies Reason For Referral [...] one day for 1 day 04/07/2023 Active amLODIPine Besylate 5 MG 1 tablet [...] the procedure for 1 day 07/27/2022 Active Omeprazole 40 MG TAKE 1 CAPSULE BY [facility] EVERY DAY for 90 Active Immunizations Vaccine Route Administration Date Status Comme nts Influenza Unknown 02/06/2018 Administered Influenza Unknown 07/22/2022 Refused Problems Problem Type SNOMED Code ICD Code Onset Dates Problem Status W/U Status Risk Notes Problem 493462391 Colon cancer screening (Z12.11) Active confirmed Problem 389978654 Encounter for screening for malignant neoplasm of colon (Z12.11) Active confirmed Problem Diverticular disease of colon (544299801) Diverticulosis of large intestine without perforation or abscess without bleeding (K57.30) Active confirmed Problem Dysphagia (97513838) Dysphagia (R13.10) Active confirmed Problem 311162464 Gastroesophageal reflux disease without esophagitis (K21.9) Active confirmed Problem 960442412692106 Preprocedural examination (Z01.818) Active confirmed Problem 802217789 Gastroesophageal reflux disease, unspecified whether esophagitis present (K21.9) Active confirmed Problem 19801855 Esophageal dysphagia (R13.19) Active confirmed Problem Gastroesophageal reflux disease (disorder) (161435663) Chronic GERD (K21.9) Active confirmed Plan Of Treatment Future Test Test Name Order Date COLONOSCOPY 06/23/2012 UPPER GI ENDOSCOPY [place] DILATION OF ESOPH 07/22/2022 COLONOSCOPY 07/22/2022 Insurance Providers Payer Name Payer Address Payer Phone Subscriber Number Group Number Insured Name Patient Relationship to Insured Coverage Start Date Coverage End Date MEDICARE OF [place] [address] [place] [address] [id number] ANA LUISA LORENZO Self - patient is the insured Medical (General) History Medical History History ICD Code NIDDM Hypertension Hyperlipidemia EGD in 08/2010 neg. except minimal gastri tis, neg. H.pylori; minimal HH Left breast cancer-mastectomy and chemot herapy 1999 Denies [place],CVA,Lung disease,renal disease Neg colonoscopy with Dr. Lazaro in 2002 Neg. screening colonoscopy i n 09/2012--diverticulosis and internal hemorrhoids Surgical History Surgery Date(Month/Year) Mastectomy on left breast/reconstruction surgery--had chemo therapy 1999 Cholecystectomy
--- OUTSIDE RECORDS SUMMARY | 2025-01-30 11:55 | XMS_ITS | Patient Health Record ---
Author Organization [facility] Address [address] [place] [address] Care Team Providers Care Balance Staff Staker Name Role Phone Kathrin Lopez Primary Care Provider Didier Obregon Ju[place] Unavailable [phone] Allergies No Known Allergies Results Component Value Reference Range Notes HEMOGLOBIN A1C (GLYCOHEMOGLO BIN) Reviewed date:09/13/2024 08:53:16 AM Interpretation: Performing Lab: Notes/Report: HEMOGLOBIN A1C % (HH) 7.1 Reason For Referral No Information Medications Medication SIG (Take, Route, Frequency, Duration) Notes Start Date End Date Status Rosuvastatin Calcium 40 MG 1 tablet Orally Once a day; Duration: 30 days Active hydrALAZINE HCl 25 MG 1 tablet with food Orally Three times a day Active Omeprazole 20 MG 1 capsule 30 minutes before morning meal Orally Once a day Active Vitamin B12 Active NexIUM 40 MG 1 capsule Orally Onc e a day; Duration: 30 day(s) Not-Taking Linzess 145 MCG 1 capsule at least 3 0 minutes before the first meal of the day on an empty stomach Orally Once a day; Duration: 30 day(s) Not-Taking amLODIPine Besylate 5 MG 1 tablet Orally Once a day; Duration: 30 day(s) Not-Taking NIFEdipine ER 30 MG TAKE 1 TABLET BY EVERY DAY Oral; Duration: 90 Days Active Lisinopril 40 MG 1 tablet Orally Once a day; Duration: 30 day(s) Active metFORMIN HCl 1000 MG 1 tablet with a me al Orally Once a day; Duration: 30 days Active Immunizations Vaccine Route Administration Date Status Comme nts Influenza Unknown 01/08/2019 Administered Influenza Unknown 01/07/2023 Administered COVID-19 Moderna Vaccine Unknown 03/06/2021 Administered 1st:06/24/2020 2nd:07/22/2021 Social History Tobacco Use: Social History Observation [...] Problem Acquired hammer toe of right foot (2341184487054056 ) Other hammer toe(s) (acquired), right foot (M20.41) Active confirmed Problem Acquired hammer toe of left foot (3115648737079780 ) Other hammer toe(s) (acquired), left foot (M20.42) Active confirmed Problem Polyneuropathy due to type 2 diabetes mellitus (520918342) Type 2 diabetes mellitus with diabetic polyneuropathy (E11.42) Active confirmed Problem Hallux valgus of right foot (8478488447) Hallux valgus of right foot (M20.11) Active confirmed Problem Hallux valgus of left foot (6204223851) Hallux valgus of left foot (M20.12) Active confirmed Vital Signs Blood pressure diastolic 80 mm Hg 09/13/2024 Height 5ft 6in in 09/13/2024 Blood pressure systolic 120 mm Hg 09/13/2024 Weight 168 lbs 09/13/2024 BMI 27.11 kg/m2 09/13/2024 Procedures Procedure Date Ordered Date Performed Result Body Sit e 61013-ZFSRGWJ NAIL, 6 OR MORE 05/17/2024 N/A 74391-RTEQ SKIN LESIONS, OVER 4 05/17/2024 N/A 83888-NJECWND NAIL, 6 OR MORE 09/13/2024 N/A 05079-JKPN SKIN LESIONS, OVER 4 09/13/2024 N/A Encounters Encounter Location Date Provider Diagnosis [facility] [address] [place] [address] 05/17/2024 Juana Black Type 2 diabetes mellitus with diabetic polyneuropathy E11.42 and T[facility]guium B[facility] [address] 09/13/2024 Juana Obregon Type 2 diabetes mellitus with diabetic polyneuropathy E11.42 ; Other hammer toe(s) (acquired), right foot M20.41 ; Tinea unguium B35.1 ; Other hammer toe(s) (acquired), left foot M20.42 ; Hallux valgus of right foot M20.11 and Hallux valgus of left foot M20.12 [facility] [address] 01/24/2025 Juana Obregno Assessments Encounter Date Diagnosis (ICD Code) Assessment Notes Treatment Notes Treatment Clinical Notes Section Notes 05/17/2024 Type 2 diabetes mellitus with diabetic polyneuropathy (ICD-10 - E11.42) 09/13/2024 Other hammer toe(s) (acquired), right foot (ICD-10 - M20.41) Patient Educated with: DIABETIC FOOT CARE INSTRUCTIONS. pdf (DIABETIC FOOT CARE INSTRUCTIONS. pdf) 09/13/2024 Type 2 diabetes mellitus with diabetic polyneuropathy (ICD-10 - E11.42) 05/17/2024 Tinea unguium (ICD-10 - B35.1) 09/13/2024 Tinea unguium (ICD-10 - B35.1) 09/13/2024 Other hammer toe(s) (acquired), left foot (ICD-10 - M20.42) 09/13/2024 Hallux valgus of right foot (ICD-10 - M20.11) 09/13/2024 Hallux valgus of left foot (ICD-10 - M20.12) Plan Of Treatment Pending Test Test Name Order Date 95248-RPSFPOI NAIL, 6 OR MORE 01/03/2020 21664-GHTDOYV NAIL, 6 OR MORE 08/03/2021 41832-TVLTWXM NAIL, 6 OR MORE 02/01/2022 32762-WWBZVXC NAIL, 6 OR MORE 08/02/2022 65856-VCMDBUY NAIL, 6 OR MORE 12/06/2022 12470-PSTAXBE NAIL, 6 OR MORE 03/17/2023 36817-JERPRYC NAIL, 6 OR MORE 07/04/2023 04496-VDZPXYU NAIL, 6 OR MORE 10/06/2023 49977-XXGYAYR NAIL, 6 OR MORE 01/26/2024 96847-PNGNDXD NAIL, 6 OR MORE 05/17/2024 76105-AOBZGZQ NAIL, 6 OR MORE 09/13/2024 51576-Bmbgjmkr Plate 08/02/2022 54745-Qhvxfirh Plate 10/06/2023 55411-Pkgfdghr Plate Each Additional 74131-QGYZ SKIN LESIONS, OVER 4 10/06/19 24 96580-NEXY SKIN LESIONS, OVER 4 07/04/19 24 95502-RNDI SKIN LESIONS, OVER 4 03/17/20 23 49603-TAEA SKIN LESIONS, OVER 4 12/07/19 23 69827-MNWP SKIN LESIONS, OVER 4 08/03/19 23 48358-QOJC SKIN LESIONS, OVER 4 09/14/19 25 91181-FMYZ SKIN LESIONS, OVER 4 05/17/19 25 44579-PAQK SKIN LESIONS, OVER 4 01/26/20 24 84564-CAFA SKIN LESIONS, 2 TO 4 02/02/20 22 77980-AZYL SKIN LESIONS, 2 TO 4 08/04/19 22 Insurance Providers Payer Name Payer Address Payer Phone Subscriber Number Group Number Insured Name Patient Relationship to Insured Coverage Start Date Coverage End Date Medicare [employer] [address] [place] [address] [id number] Elza Ryan Self - patient is the insured Medical (General) History Medical History History ICD Code Cancer Diabetic High blood pressure Surgical History Surgery Date(Month/Year) Breast Cancer Surgery 06/23/1999
--- OUTSIDE RECORDS SUMMARY | 2025-01-30 11:55 | XMS_ITS | Clinical Summary ---
Author Organization [facility] Address [address] [place] [address] Care Team Providers Care Family Coach Name Role Phone Unavailable Primary Care Provider [...] - 1-dose 75+ series) 09/11/2022 Influenza Vaccine (#1) 2025 01/25/2024 COVID-19 Vaccine Completed 07/31/2024, 01/25/2024 HIB [...]
== END 2025-01-30 11:04 | disposition home or self-care (01) ==
LOC: HO.HMCH 09:50
PROVIDERS: PCP Internal Medicine; Visit Provider Internal Medicine
DX: E11.65 Type 2 diabetes mellitus with hyperglycemia (principal); I10 Essential (primary) hypertension; E78.00 Pure hypercholesterolemia, unspecified; I25.10 Atherosclerotic heart disease of native coronary artery without angina pectoris; K21.9 Gastro-esophageal reflux disease without esophagitis; Z85.3 Personal history of malignant neoplasm of breast; R05.9 Cough, unspecified; Z13.9 Encounter for screening, unspecified

== ENCOUNTER 2025-01-30 09:50 | Outpatient (REF) | payer MEDICARE, SELFPAY ==
[2025-01-30 12:26] LABS: Resp Syncy Virus RNA Qual PCR NEGATIVE (Negative); SARS COV2 PCR INHOUSE POSITIVE (Negative)
== END 2025-01-30 09:51 | disposition home or self-care (01) ==
LOC: HO.LAB 09:50
PROVIDERS: PCP Internal Medicine; Visit Provider Internal Medicine
DX: E11.65 Type 2 diabetes mellitus with hyperglycemia (principal); I10 Essential (primary) hypertension; E78.00 Pure hypercholesterolemia, unspecified; I25.10 Atherosclerotic heart disease of native coronary artery without angina pectoris; R05.9 Cough, unspecified; K21.9 Gastro-esophageal reflux disease without esophagitis; Z85.3 Personal history of malignant neoplasm of breast
CPT/HCPCS: 83036; 87637; 99212

== ENCOUNTER 2025-02-21 09:21 | Outpatient (AMB) | payer MEDICARE, SELFPAY ==
--- OUTSIDE RECORDS SUMMARY | 2025-01-24 05:00 | XMS_ITS ---
Author Organization [facility] Address [address] [place] [address] Care Team Providers Care Program Assistant Name Role Phone Kathrin [place] Primary Care Provider Juana Marques [phone] Encounters Encounter Location Date Provider Diagnosis [facility] [address] [place] [address] 01/24/2025 Juana Obregon Plan Of Treatment No Information Progress Notes * Elza LORENZO EDOB: [birth year] (79 yo F)Acc No.[id number]:01/24/2025 Progress Note Patient: Elza PASCAL Provider: Simone Obregon DPM :1945 A ge:79 Y S ex:Female Date:01/24/2025 Address:[address] [place] [address] [facility] Pcp:Kathrin [place] Subjective: * Chief Complaints: * * Medical History: Objective: * Vitals: Assessment: Plan: * Treatment: * Images: * The named appointment provid er may or may not be the originator of this progress note, and it is not deemed complete until electronically signed by the appointment provider. Sign off status: Pending * Provider: Simone Obregon DPM Date: 0 01/24/2025 Generated for Penelope frances/Jaskaran/eTransmitting on: 1 10:37 AM EDT
--- NOTE | 2025-02-21 09:30 | AM.OFFVISNUR ---
Intake Visit Reasons: Flu Shot Allergies hydrochlorothiazide Allergy (Unknown, Verified 01/30/25 10:19) unknown amlodipine Adverse Reaction (Intermediate, Verified 01/30/25 10:19) leg swelling Office Procedures Flu Questionnaire Does the patient have a severe egg allergy?: No Does the patient have severe life threatening allergies?: No Does the patient have a fever or illness today?: No Has the patient ever had Guillain-[place] Syndrome?: No Has the patient ever had any past reaction to a flu shot?: No Immunizations Fluarix 2354-9509 (PF) 45 mcg (15 mcg x 3)/0.5 mL IM syringe Performing Provider: Kathrin Lopez MD [facility] Administered by: Ria Stone RN on 02/21/25 09:30 Dose Route Admin Location Dispensed Lot Number Expiration Date NDC Employee Services Manager 0.5 mL IM Left Deltoid 0.5 mL [id number] 11/05/25 60640-137-67 Partschannel VIS Given Date VIS Provided VIS Publication Date 02/21/25 Single Vaccine 24 Eligibility Eligibility Date Funding Source Not [facility] Eligible 02/21/25 Private Assessment & Plan Assessment & Plan Orders: Orders Influenza [id number] Immunization Today Z23 - Encounter for immunization Coding
--- OUTSIDE RECORDS SUMMARY | 2025-02-21 10:37 | XMS_ITS | Clinical Summary ---
Author Organization [facility] Address [address] [place] [address] Care Team Providers Care Digital Manager Name Role Phone Unavailable Primary Care Provider [...]
--- OUTSIDE RECORDS SUMMARY | 2025-02-21 10:37 | XMS_ITS | Patient Health Record ---
[facility] Address [address] [place] [address] Care Team Providers Care Lieutenant Fire Fighter Name Role Phone Kathrin Lopez Primary Care Provider Didier Obregon Ju[place] Unavailable [phone] Allergies No Known Allergies Results Component Value [...] Problem Acquired hammer toe of right foot (7505573919160049 ) Other hammer toe(s) (acquired), right foot (M20.41) Active confirmed Problem Acquired hammer toe of left foot (3326560913440189 ) Other hammer toe(s) (acquired), left foot (M20.42) Active confirmed Problem Polyneuropathy due to type 2 diabetes mellitus (641490829) Type 2 diabetes mellitus with diabetic polyneuropathy (E11.42) Active confirmed Problem Hallux valgus of right foot (1281391323) Hallux valgus of right foot (M20.11) Active confirmed Problem Hallux valgus of left foot (7075491264) Hallux valgus of left foot (M20.12) Active confirmed Vital Signs Blood pressure diastolic 80 mm Hg 09/13/2024 Height 5ft 6in in 09/13/2024 Blood pressure systolic 120 mm Hg 09/13/2024 Weight 168 lbs 09/13/2024 BMI 27.11 kg/m2 09/13/2024 Procedures Procedure Date Ordered Date Performed Result Body Sit e 59635-HZXHGNJ NAIL, 6 OR MORE 05/17/2024 N/A 48605-ONWB SKIN LESIONS, OVER 4 05/17/2024 N/A 01122-IKKTKJE NAIL, 6 OR MORE 09/13/2024 N/A 20769-OFNW SKIN LESIONS, OVER 4 09/13/2024 N/A Encounters Encounter Location Date Provider Diagnosis [facility] [address] [place] [address] 05/17/2024 Juana Black Type 2 diabetes mellitus with diabetic polyneuropathy E11.42 and Tinea unguium B35.[address] [facility] [address] 09/13/2024 Juana Obregon Type 2 diabetes mellitus with diabetic polyneuropathy E11.42 ; Other hammer toe(s) (acquired), right foot M20.41 ; Tinea unguium B35.1 ; Other hammer toe(s) (acquired), left foot M20.42 ; Hallux valgus of right foot M20.11 and Hallux valgus of left foot M20.12 [facility] [address] 01/24/2025 Juana Obregon Assessments Encounter Date Diagnosis (ICD Code) Assessment [...] Treatment Pending Test Test Name Order Date 16995-ZXNIESQ NAIL, 6 OR MORE 01/03/2020 89326-IDANPLN NAIL, 6 OR MORE 08/03/2021 05944-VFNBYDW NAIL, 6 OR MORE 02/01/2022 11701-CJWZDZF NAIL, 6 OR MORE 08/02/2022 80353-SQSXBCV NAIL, 6 OR MORE 12/06/2022 26992-OHVYHDJ NAIL, 6 OR MORE 03/17/2023 53237-CXPOEID NAIL, 6 OR MORE 07/04/2023 10306-NIJNNBW NAIL, 6 OR MORE 10/06/2023 32241-IJMPRYT NAIL, 6 OR MORE 01/26/2024 71084-IPIUNUA NAIL, 6 OR MORE 05/17/2024 95722-RAAIYGD NAIL, 6 OR MORE 09/13/2024 91587-Uyatpxag Plate 08/02/2022 33626-Dnjeyuxn Plate 10/06/2023 64164-Kmwyfrko Plate Each Additional 96579-HQST SKIN LESIONS, OVER 4 10/06/19 24 99437-YKUH SKIN LESIONS, OVER 4 07/04/19 24 85889-SAIR SKIN LESIONS, OVER 4 03/17/20 23 81733-BGXG SKIN LESIONS, OVER 4 12/07/19 23 37514-SZHV SKIN LESIONS, OVER 4 08/03/19 23 43634-LNBS SKIN LESIONS, OVER 4 09/14/19 25 35691-AQSR SKIN LESIONS, OVER 4 05/17/19 25 17242-RMNI SKIN LESIONS, OVER 4 01/26/20 24 83331-ZPRU SKIN LESIONS, 2 TO 4 02/02/20 22 35494-TSRO SKIN LESIONS, 2 TO 4 08/04/19 22 Insurance Providers Payer Name Payer Address Payer Phone Subscriber Number Group Number Insured Name Patient Relationship to Insured Coverage Start Date Coverage End Date Medicare [employer] [address] [place] [address] [id number] Elza Ryan Self - patient is the insured Medical (General) History Medical History History ICD Code Cancer Diabetic High blood pressure Surgical History Surgery Date(Month/Year) Breast Cancer Surgery 06/23/1999
--- OUTSIDE RECORDS SUMMARY | 2025-02-21 10:37 | XMS_ITS | Patient Health Record ---
Author Organization [facility] Address [address] [place] [address] Care Team Providers Care Paid Intern Name Role Phone Po Kathrin BUNCH Primary Care Provider Danie Red Unavailable [phone] Amanda Thorpe Unavailable Unavailable Allergies No Known Allergies Reason For Referral No Information Medications Medication SIG (Take, Route, Frequency, Duration) Notes Start Date End Date Status MiraLax (colon prep) 17 GM/SCOOP 1 238 Gm Bottle mixed with Gatorade or Crystal Light Orally begin at 5:00 p.m. the day before the procedure; Duration: 1 day 04/04/2023 Active Dulcolax (colon prep) 5 MG take at 3:00 p.m and 7:00p.m. Orally two tablets twice a day for one day; Duration: 1 day 04/07/2023 Active amLODIPine Besylate 5 MG 1 tablet Orally Once a day Active Rosuvastatin Calcium 20 MG Oral; Duration: 90 Active hydrALAZINE HCl 10 MG Oral; Duration: 90 Active Dulcolax (colon prep) 5 MG take at 3:00 p.m and 7:00p.m. Orally two tablets twice a day for one day; Duration: 1 day 07/27/2022 Active Lisinopril 40 MG [...] at 5:00 p.m. the day before the procedure; Duration: 1 day 07/27/2022 Active Omeprazole 40 MG TAKE 1 CAPSULE BY [facility] EVERY DAY; Duration: 90 Active Immunizations Vaccine Route Administration Date Status Comme nts Influenza Unknown 02/06/2018 Administered Influenza Unknown 07/22/2022 Refused Problems Problem Type SNOMED Code ICD Code Onset Dates Problem Status W/U Status Risk Notes Problem Colon cancer screening (297311493) Colon cancer screening (Z12.11) Active confirmed Problem Screening for malignant neoplasm of colon (631623008) Encounter for screening for malignant neoplasm of colon (Z12.11) Active confirmed Problem Diverticular disease of colon (352425592) Diverticulosis of large intestine without perforation or abscess without bleeding (K57.30) Active confirmed Problem Dysphagia (56134574) Dysphagia (R13.10) Active confirmed Problem Gastroesophageal reflux disease without esophagitis (130758331) Gastroesophageal reflux disease without esophagitis (K21.9) Active confirmed Problem Preprocedural examination (749174659909396) Preprocedural examination (Z01.818) Active confirmed Problem Gastroesophageal reflux disease (693185490) Gastroesophageal reflux disease, unspecified whether esophagitis present (K21.9) Active confirmed Problem Esophageal dysphagia (14102251) Esophageal dysphagia (R13.19) Active confirmed Problem Gastroesophageal reflux disease (disorder) (096321038) Chronic GERD (K21.9) Active confirmed Plan Of Treatment Future Test Test Name Order Date COLONOSCOPY 06/23/2012 UPPER GI ENDOSCOPY [place] DILATION OF ESOPH 07/22/2022 COLONOSCOPY 07/22/2022 Insurance Providers Payer Name Payer Address Payer Phone Subscriber Number Group Number Insured Name Patient Relationship to Insured Coverage Start Date Coverage End Date MEDICARE OF [place] [address] [facility] [place] [address] [id number] ANA LUISA LORENZO Self - patient is the insured Medical (General) History Medical History History ICD Code NIDDM Hypertension Hyperlipidemia EGD in 08/2010 neg. except minimal gastri tis, neg. H.pylori; minimal HH Left breast cancer-mastectomy and chemot herapy 1999 Denies [place],CVA,Lung disease,renal disease Neg colonoscopy with Dr. Lazaro in 2002 Neg. screening colonoscopy i n 09/2012--diverticulosis and internal hemorrhoids Surgical History Surgery Date(Month/Year) Mastectomy on left breast/reconstruction surgery--had chemo therapy 1999 Cholecystectomy
== END 2025-02-21 09:32 | disposition home or self-care (01) ==
LOC: HO.HMCH 09:22
PROVIDERS: PCP Internal Medicine; Visit Provider Internal Medicine
DX: Z23 Encounter for immunization (principal)

== ENCOUNTER → 2025-02-21 09:21 | Outpatient (BNVA) | payer MEDICARE, SELFPAY | PROVIDERS: PCP Internal Medicine; Visit Provider Internal Medicine | DX: Z23 Encounter for immunization (principal) | CPT/HCPCS: 90471; 90656 ==